=== PATIENT | female | born 1990 | race Caucasian/White ===

== ENCOUNTER 2018-07-19 06:46 | Emergency (ER) | payer MEDICAID ==
[2018-07-19 06:55] VITALS: TEMP 97.7
[2018-07-19 07:08] LABS: Glucose,Whole Blood 116 mg/dL (75-99)
[2018-07-19 07:15] VITALS: PULSE 79
[2018-07-19 07:56] LABS: Basophils % (A) 0 %; Eosinophils # (A) 0.1 k/uL (0-0.7); Eosinophils % (A) 1 %; HCT 40.3 % (34.0-46.0); Lymphocytes # (A) 0.8 k/uL (1.0-4.8); Lymphocytes % (A) 15 %; MCH 32.2 pg (25.0-35.0); MCHC 34.7 g/dL (31.0-37.0); MCV 92.9 fL (80.0-100.0); Mean Platelet Volume 7.6; Monocytes # (A) 0.4 k/uL (0-1.0); Monocytes % (A) 6 %; Neutrophils # (A) 4.1 k/uL (1.3-7.7); Neutrophils % (A) 74 %; Platelet Count 169 k/uL (150-450); RBC 4.34 m/uL (3.80-5.40); RDW 12.8 % (11.5-15.5); WBC 5.6 k/uL (3.8-10.6)
--- NOTE | 2018-07-19 08:02 | ED ---
Syncope HPI - General Chief Complaint: Syncope Stated Complaint: syncope,10 wks Time Seen by Provider: 07/19/18 07:00 Source: patient, RN notes reviewed Mode of arrival: wheelchair Limitations: no limitations - History of Present Illness Initial Comments: This is a 27-year-old female with a benign past medical history who just found out that she is unsure exactly how far along over she was at work this morning and passed all push and a laundry cart. She states her the black and she passed out briefly. She had no headache dizziness blurry vision but has been having nausea and vomiting did not eat this morning. At this time she feels good. No palpitations reported no chest pain no shortness of breath no focal weakness. MD Complaint: loss of consciousness - Related Data Home Medications Medication Instructions Recorded Confirmed Jqj-Agxp-Sthqo Acid 1 cap PO DAILY 07/19/18 07/19/18 [-U Capsule (formulary)] Allergies Allergy/AdvReac Type Severity Reaction Status Date / Time No Known Allergies Allergy Verified 07/19/18 08:02 Review of Systems ROS Statement: Those systems with pertinent positive or pertinent negative responses have been documented in the HPI. ROS Other: All systems not noted in ROS Statement are negative. Past Medical History Past Medical History: No Reported History History of Any Multi-Drug Resistant Organisms: None Reported Past Surgical History: No Surgical Hx Reported Past Psychological History: ADD/ADHD Smoking Status: Never smoker Past Alcohol Use History: None Reported Past Drug Use History: None Reported General Exam - General Exam Comments Initial Comments: This is a well-developed well-nourished awake alert oriented 3 female Limitations: no limitations General appearance: alert, in no apparent distress Head exam: Present: atraumatic, normocephalic, normal inspection Eye exam: Present: normal appearance, PERRL, EOMI. Absent: scleral icterus, conjunctival injection, periorbital swelling ENT exam: Present: normal exam, mucous membranes moist Neck exam: Present: normal inspection. Absent: tenderness, meningismus, lymphadenopathy Respiratory exam: Present: normal lung sounds bilaterally. Absent: respiratory distress, wheezes, rales, rhonchi, stridor Cardiovascular Exam: Present: regular rate, normal rhythm, normal heart sounds. Absent: systolic murmur, diastolic murmur, rubs, gallop, clicks GI/Abdominal exam: Present: soft, normal bowel sounds. Absent: distended, tenderness, guarding, rebound, rigid Extremities exam: Present: normal inspection, full ROM, normal capillary refill. Absent: tenderness, pedal edema, joint swelling, calf tenderness Back exam: Present: normal inspection Neurological exam: Present: alert, oriented X3, CN II-XII intact Psychiatric exam: Present: normal affect, normal mood Skin exam: Present: warm, dry, intact, normal color. Absent: rash Course Vital Signs 07/19/18 07/19/18 07/19/18 06:51 07:08 09:18 Temperature 97.7 F Pulse Rate 110 H 79 79 Respiratory 16 16 18 Rate Blood Pressure 119/83 128/72 109/63 O2 Sat by Pulse 99 99 99 Oximetry EKG Findings - EKG Results: EKG: interpreted by CANDIDA SAVAGE, sinus rhythm, normal axis, normal QRS, normal ST/ T, no acute changes (Normal sinus rhythm a 74. We'll 144 QRS duration 78 QT since QTC 364/404 sinus arrhythmia no acute changes) Medical Decision Making - Medical Decision Making I did reevaluate patient several occasions she is feeling improved she didn't eat breakfast this morning she may have had a hypoglycemic episode this is on documented. We did a long discussion regarding the findings including the positive beta hCG. She will keep her appointment with Dr. Salvador on Thursday which is in 2 days. I did highly recommend that she try to eat breakfast in the morning. The presentation consistent with a vasovagal episode - Lab Data Result diagrams: 07/19/18 07:35 07/19/18 07:35 Lab Results 07/19/18 07/19/18 07/19/18 Range/Units 07:07 07:35 07:35 WBC 5.6 (3.8-10.6) k/uL RBC 4.34 (3.80-5.40) m/uL Hgb 14.0 (11.4-16.0) gm/dL Hct 40.3 (34.0-46.0) % MCV 92.9 (80.0-100.0) fL MCH 32.2 (25.0-35.0) pg MCHC 34.7 (31.0-37.0) g/dL RDW 12.8 (11.5-15.5) % Plt Count 169 (150-450) k/uL Neutrophils % 74 % Lymphocytes % 15 % Monocytes % 6 % Eosinophils % 1 % Basophils % 0 % Neutrophils # 4.1 (1.3-7.7) k/uL Lymphocytes # 0.8 L (1.0-4.8) k/uL Monocytes # 0.4 (0-1.0) k/uL Eosinophils # 0.1 (0-0.7) k/uL Basophils # 0.0 (0-0.2) k/uL Sodium (137-145) mmol/L Potassium (3.5-5.1) mmol/L Chloride (98-107) mmol/L Carbon Dioxide (22-30) mmol/L Anion Gap mmol/L BUN (7-17) mg/dL Creatinine (0.52-1.04) mg/dL Est GFR (CKD-EPI)AfAm (>60 ml/min/1.73 sqM) Est GFR (CKD-EPI)NonAf (>60 ml/min/1.73 sqM) Glucose (74-99) mg/dL POC Glucose (mg/dL) 116 H (75-99) mg/dL POC Glu Reimbursement Counselor ID Christina, Liane Calcium (8.4-10.2) mg/dL Magnesium (1.6-2.3) mg/dL Total Bilirubin (0.2-1.3) mg/dL AST (14-36) U/L ALT (9-52) U/L Alkaline Phosphatase (38-126) U/L Total Creatine Kinase 33 (30-135) U/L CK-MB (CK-2) <0.2 (0.0-2.4) ng/mL CK-MB (CK-2) Rel Index Total Protein (6.3-8.2) g/dL Albumin (3.5-5.0) g/dL HCG, Quant mIU/mL 07/19/18 Range/Units 07:35 WBC (3.8-10.6) k/uL RBC (3.80-5.40) m/uL Hgb (11.4-16.0) gm/dL Hct (34.0-46.0) % MCV (80.0-100.0) fL MCH (25.0-35.0) pg MCHC (31.0-37.0) g/dL RDW (11.5-15.5) % Plt Count (150-450) k/uL Neutrophils % % Lymphocytes % % Monocytes % % Eosinophils % % Basophils % % Neutrophils # (1.3-7.7) k/uL Lymphocytes # (1.0-4.8) k/uL Monocytes # (0-1.0) k/uL Eosinophils # (0-0.7) k/uL Basophils # (0-0.2) k/uL Sodium 140 (137-145) mmol/L Potassium 3.9 (3.5-5.1) mmol/L Chloride 108 H (98-107) mmol/L Carbon Dioxide 21 L (22-30) mmol/L Anion Gap 11 mmol/L BUN 7 (7-17) mg/dL Creatinine 0.60 (0.52-1.04) mg/dL Est GFR (CKD-EPI)AfAm >90 (>60 ml/min/1.73 sqM) Est GFR (CKD-EPI)NonAf >90 (>60 ml/min/1.73 sqM) Glucose 91 (74-99) mg/dL POC Glucose (mg/dL) (75-99) mg/dL POC Glu Reimbursement Counselor ID Calcium 9.5 (8.4-10.2) mg/dL Magnesium 1.9 (1.6-2.3) mg/dL Total Bilirubin 0.5 (0.2-1.3) mg/dL AST 19 (14-36) U/L ALT 27 (9-52) U/L Alkaline Phosphatase 48 (38-126) U/L Total Creatine Kinase (30-135) U/L CK-MB (CK-2) (0.0-2.4) ng/mL CK-MB (CK-2) Rel Index Total Protein 6.8 (6.3-8.2) g/dL Albumin 3.8 (3.5-5.0) g/dL HCG, Quant >878135.0 mIU/mL Disposition Clinical Impression: Vasovagal syncope, Disposition: HOME SELF-CARE Condition: Good Instructions: (ED), Hyperemesis Gravidarum (ED), Syncope (ED) Is patient prescribed a controlled substance at d/c from ED?: No Referrals: None,Stated [Primary Care Provider] - 1-2 days
[2018-07-19] MEDS ORDERED: SODIUM CHLORIDE 0.9% 1,000 ML IV STA (08:04)
[2018-07-19 08:20] LABS: ALT 27 U/L (9-52); AST 19 U/L (14-36); Albumin 3.8 g/dL (3.5-5.0); Alkaline Phosphatase 48 U/L (38-126); Anion Gap 11 mmol/L; Blood Urea Nitrogen 7 mg/dL (7-17); Calcium 9.5 mg/dL (8.4-10.2); Carbon Dioxide 21 mmol/L (22-30); Chloride 108 mmol/L (98-107); Creatine Kinase 33 U/L (30-135); Glucose 91 mg/dL (74-99); Magnesium 1.9 mg/dL (1.6-2.3); Potassium 3.9 mmol/L (3.5-5.1); Sodium 140 mmol/L (137-145); Total Bilirubin 0.5 mg/dL (0.2-1.3); Total Protein 6.8 g/dL (6.3-8.2)
[2018-07-19 08:29] LABS: Creatine Kinase MB <0.2 ng/mL (0.0-2.4)
[2018-07-19] MEDS ORDERED: ONDANSETRON 4 MG/2 ML VIAL IVP STA (08:33)
[2018-07-19 09:20] VITALS: BP 109/63; RESP 18
[2018-07-19 09:35] LABS: HCG,Quantitative Serum >225000.0 mIU/mL
== END 2018-07-19 09:58 | disposition home or self-care (01) ==
LOC: EC 06:46
DX: O99.89 Other specified diseases and conditions complicating pregnancy, childbirth and the puerperium (principal); R55 Syncope and collapse; O21.9 Vomiting of pregnancy, unspecified; Z3A.10 10 weeks gestation of pregnancy
CPT/HCPCS: 36415; 93005; 80053; 82550; 82553; 83735; 85025; 84702; 99284; 96374; 96361; J2405

== ENCOUNTER 2018-07-25 15:41 | Observation (INO) | payer MEDICAID ==
[2018-07-25] MEDS ORDERED: SODIUM CHLORIDE 0.9% 1,000 ML IV STA (16:05)
[2018-07-25] MEDS ORDERED: METOCLOPRAMIDE 5 MG/ML 2 ML VIAL IVP STA (16:05)
--- NOTE | 2018-07-25 16:08 | ED ---
General Adult HPI - General Source: patient, RN notes reviewed Mode of arrival: ambulatory Limitations: no limitations <Berto Ayala - Last Filed: 07/25/18 16:06> <Tristin Floyd - Last Filed: 07/25/18 19:18> - General Chief complaint: Nausea/Vomiting/Diarrhea Stated complaint: 11wks dehydration Time Seen by Provider: 07/25/18 16:00 - History of Present Illness Initial comments: Patient is a G1, P0 27-year-old female who is approximately 11 weeks , presenting to the emergency room today with a chief complaint of increased nausea vomiting. Patient states that she's had nausea vomiting throughout the but the last 3 days it has been worse. She states that she did doctor or REHAB THERAPY MANAGER doctor Sara who recommended coming to the hospital for IV fluids. Patient denies any specific abdominal pain. She denies any vaginal bleeding or discharge. She denies any other complaints or symptoms. Patient denies any recent fever, chills, shortness of breath, chest pain, back pain, numbness or tingling, headaches or visual changes, or any other complaints. ( Berto Ayala) - Related Data Home Medications Medication Instructions Recorded Confirmed Qgc-Myof-Epsfm Acid 1 cap PO DAILY 07/19/18 07/25/18 [-U Capsule (formulary)] Diclegis 1 tab PO DAILY PRN 07/25/18 07/25/18 Allergies Allergy/AdvReac Type Severity Reaction Status Date / Time No Known Allergies Allergy Verified 07/25/18 16:07 Review of Systems ROS Other: All systems not noted in ROS Statement are negative. <Berto Ayala - Last Filed: 07/25/18 16:06> ROS Other: All systems not noted in ROS Statement are negative. <Tristin Floyd - Last Filed: 07/25/18 19:18> ROS Statement: Those systems with pertinent positive or pertinent negative responses have been documented in the HPI. Past Medical History Past Medical History: No Reported History Additional Past Medical History / Comment(s): hyperemesis History of Any Multi-Drug Resistant Organisms: None Reported Past Surgical History: No Surgical Hx Reported Past Psychological History: ADD/ADHD Smoking Status: Never smoker Past Alcohol Use History: None Reported Past Drug Use History: None Reported <Berto Ayala - Last Filed: 12/09/18 16:06> General Exam Limitations: no limitations <Berto Ayala - Last Filed: 07/25/18 16:06> <Tristin Floyd - Last Filed: 07/25/18 19:18> - General Exam Comments Initial Comments: General: The patient is awake and alert, in no distress, and does not appear acutely ill. Eye: Pupils are equal, round and reactive to light, extra-ocular movements are intact. No nystagmus. Bilateral subconjunctival hemorrhage. No signs of icterus. Ears, nose, mouth and throat: There are moist mucous membranes and no oral lesions. Neck: The neck is supple. Cardiovascular: There is a regular rate and rhythm. No murmur, rub or gallop is appreciated. Respiratory: Lungs are clear to auscultation, respirations are non-labored, breath sounds are equal. No wheezes, stridor, rales, or rhonchi. Gastrointestinal: Soft, non-distended, non-tender abdomen without masses or organomegaly noted. There is no rebound or guarding present. Musculoskeletal: Normal ROM, no tenderness. Neurological: A&O x 3. CN II-XII intact, There are no obvious motor or sensory deficits. Coordination appears grossly intact. Speech is normal. Skin: Skin is warm and dry and no rashes or lesions are noted. Psychiatric: Cooperative, appropriate mood & affect, normal judgment. (Berto Ayala) Vital Signs 07/25/18 15:56 Temperature 98.4 F Pulse Rate 96 Respiratory 18 Rate Blood Pressure 110/69 O2 Sat by Pulse 97 Oximetry Medical Decision Making <Berto Ayala - Last Filed: 07/25/18 16:06> - Lab Data Result diagrams: 07/25/18 16:24 07/25/18 16:24 - Radiology Data Radiology results: report reviewed (Ultrasound does show some sludge in the gallbladder. Common bile duct 1 cm.) <Tristin Floyd - Last Filed: 07/25/18 19:18> - Medical Decision Making Patient reevaluated by myself, Dr. Floyd. Patient resting comfortably in bed. Abdomen soft and nontender. Patient and family updated. Case was discussed in detail with Dr. Barillas who would like his patient admitted. Continue IV fluids. Amylase and lipase will be added. (Tristin Floyd) - Lab Data Lab Results 07/25/18 07/25/1818 Range/Units 16:24 16:24 17:05 WBC 6.3 (3.8-10.6) k/uL RBC 4.43 (3.80-5.40) m/uL Hgb 15.0 (11.4-16.0) gm/dL Hct 41.3 (34.0-46.0) % MCV 93.3 (80.0-100.0) fL MCH 34.0 (25.0-35.0) pg MCHC 36.4 (31.0-37.0) g/dL RDW 12.6 (11.5-15.5) % Plt Count 173 (150-450) k/uL Neutrophils % 74 % Lymphocytes % 17 % Monocytes % 6 % Eosinophils % 2 % Basophils % 0 % Neutrophils # 4.7 (1.3-7.7) k/uL Lymphocytes # 1.1 (1.0-4.8) k/uL Monocytes # 0.4 (0-1.0) k/uL Eosinophils # 0.1 (0-0.7) k/uL Basophils # 0.0 (0-0.2) k/uL Sodium 139 (137-145) mmol/L Potassium 3.9 (3.5-5.1) mmol/L Chloride 106 (98-107) mmol/L Carbon Dioxide 20 L (22-30) mmol/L Anion Gap 13 mmol/L BUN 9 (7-17) mg/dL Creatinine 0.50 L (0.52-1.04) mg/dL Est GFR (CKD-EPI)AfAm >90 (>60 ml/min/1.73 sqM) Est GFR (CKD-EPI)NonAf >90 (>60 ml/min/1.73 sqM) Glucose 82 (74-99) mg/dL Calcium 10.2 (8.4-10.2) mg/dL Total Bilirubin 1.9 H (0.2-1.3) mg/dL AST 215 H (14-36) U/L ALT 553 H (9-52) U/L Alkaline Phosphatase 110 (38-126) U/L Total Protein 7.7 (6.3-8.2) g/dL Albumin 4.5 (3.5-5.0) g/dL Urine Color Dark Yellow Urine Appearance Turbid H (Clear) Urine pH 6.0 (5.0-8.0) Ur Specific [place] 1.025 (1.001-1.035) Urine Protein 2+ H (Negative) Urine Glucose (UA) Negative (Negative) Urine Ketones 4+ H (Negative) Urine Blood Trace H (Negative) Urine Nitrite Negative (Negative) Urine Bilirubin 1+ H (Negative) Urine Urobilinogen 4.0 (<2.0) mg/dL Ur Leukocyte Esterase Large H (Negative) Urine RBC 24 H (0-5) /hpf Urine WBC >182 H (0-5) /hpf Urine WBC Clumps Many H (None) /hpf Ur Squamous Epith Cells 26 H (0-4) /hpf Urine Mucus Few H (None) /hpf Disposition <Berto Ayala - Last Filed: 07/25/18 16:06> Is patient prescribed a controlled substance at d/c from ED?: No Decision Time: 19:18 <Tristin Floyd - Last Filed: 07/25/18 19:18> Clinical Impression: Gallbladder sludge, Hyperemesis gravidarum Disposition: ADMITTED IP TO THIS HOSP Referrals: Neil Salvador MD [STAFF PHYSICIAN] - 1-2 days
[2018-07-25 16:33] LABS: Basophils % (A) 0 %; Eosinophils # (A) 0.1 k/uL (0-0.7); Eosinophils % (A) 2 %; HCT 41.3 % (34.0-46.0); Lymphocytes # (A) 1.1 k/uL (1.0-4.8); Lymphocytes % (A) 17 %; MCHC 36.4 g/dL (31.0-37.0); MCV 93.3 fL (80.0-100.0); Mean Platelet Volume 7.6; Monocytes # (A) 0.4 k/uL (0-1.0); Monocytes % (A) 6 %; Neutrophils # (A) 4.7 k/uL (1.3-7.7); Neutrophils % (A) 74 %; Platelet Count 173 k/uL (150-450); RBC 4.43 m/uL (3.80-5.40); RDW 12.6 % (11.5-15.5); WBC 6.3 k/uL (3.8-10.6)
[2018-07-25 16:42] LABS: ALT 553 U/L (9-52); AST 215 U/L (14-36); Albumin 4.5 g/dL (3.5-5.0); Alkaline Phosphatase 110 U/L (38-126); Anion Gap 13 mmol/L; Blood Urea Nitrogen 9 mg/dL (7-17); Calcium 10.2 mg/dL (8.4-10.2); Carbon Dioxide 20 mmol/L (22-30); Chloride 106 mmol/L (98-107); Glucose 82 mg/dL (74-99); Potassium 3.9 mmol/L (3.5-5.1); Sodium 139 mmol/L (137-145); Total Bilirubin 1.9 mg/dL (0.2-1.3); Total Protein 7.7 g/dL (6.3-8.2)
[2018-07-25 17:29] LABS: Appearance,Urine Turbid (Clear); Bilirubin,Urine 1+ (Negative); Blood,Urine Trace (Negative); Color,Urine Dark Yellow; Glucose,Urine (UA) Negative (Negative); Ketones,Urine 4+ (Negative); Leukocyte Esterase,Urine Large (Negative); Mucus,Urine Few /hpf; Nitrite,Urine Negative (Negative); Protein,Urine 2+ (Negative); RBC,Urine 24 /hpf (0-5); Specific Gravity,Urine 1.025 (1.001-1.035); Squamous Epithelial Cell,Urine 26 /hpf (0-4)
--- NOTE | 2018-07-25 18:16 | US ---
EXAMINATION TYPE: US abdomen limited DATE OF EXAM: 07/25/2018 COMPARISON: NONE CLINICAL HISTORY: Pain. EXAM MEASUREMENTS: Liver Length: 14.8 cm Gallbladder Wall: 0.2 cm CBD: 1.0 cm Right Kidney: 10.1 x 3.8 x 4.3 cm Pancreas: wnl Liver: wnl Gallbladder: sludge filled Evidence for sonographic Yo's sign: no CBD: dilated Right Kidney: wnl IMPRESSION: There is echogenic bile. No dilation seen of the intrahepatic bile ducts. No gallstones s een.
[2018-07-25] MEDS ORDERED: SODIUM CHLORIDE 0.9% 500 ML 500 ML IV STA (19:04)
[2018-07-25] MEDS ORDERED: NALOXONE 0.4 MG/ML 1 ML VIAL IV PRN (19:18)
[2018-07-25] MEDS ORDERED: ONDANSETRON 4 MG/2 ML VIAL IVP PRN (19:18)
[2018-07-25] MEDS ORDERED: AMPICILLIN-SULBACTAM 3 GM in SODIUM CHLORIDE 0.9% 100 ML IVPB STA (19:29)
[2018-07-25 19:39] LABS: Amylase 66 U/L (30-110); Lipase 143 U/L (23-300)
--- NOTE | 2018-07-25 20:02 | P.HPOB ---
History of Present Illness H&P Date: 07/25/18 Chief Complaint: Intrauterine at 11 weeks: Hyperemesis gravidarum Shirley is a 27-year-old at 11 weeks gestation who arrives emergency room complaining of hyperemesis. Her symptoms have been ongoing for last week and she was seen earlier in the emergency room for same symptoms. At that time they did with the IV hydration and antiemetics get her feeling better, however for last 3 days her symptoms progressively worsened and she is on the point where she is very dehydrated and cannot keep anything down. She relates that she is been throwing up up to 20 times a day. At this time her vital signs are stable and she is afebrile. She relates the last time she throat was about 5 or 6 hours ago. In the emergency room she has received his dose of Zofran and antibiotic were initiated for possible cystitis questions early pyelonephritis with large number of white blood cells and clumps. Also noted on ultrasound is presence of significant sludge in her gallbladder in a surgical consult has been requested. She has been started on a clear liquid diet which hopefully we will be able to advance. Should she stay in the hospital for continued to have symptoms for more than a day or 2 a nutritional consult will likely be required. Abnormal laboratory studies did include elevation in her AST and MALT as well as told total bilirubin. We will check thyroid and make sure that that is not part of the process for her hyperemesis. Is also quite likely that her acute cystitis is complicating her nausea as well. She was already started on IV antibiotics in the emergency room. A culture is pending. Past Medical History Past Medical History: No Reported History Additional Past Medical History / Comment(s): hyperemesis History of Any Multi-Drug Resistant Organisms: None Reported Past Surgical History: No Surgical Hx Reported Past Psychological History: ADD/ADHD Smoking Status: Never smoker Past Alcohol Use History: None Reported Past Drug Use History: None Reported Medications and Allergies Home Medications Medication Instructions Recorded Confirmed Type Dwv-Vbqe-Evrab Acid 1 cap PO DAILY 07/19/18 07/25/18 History [-U Capsule (formulary)] Diclegis 1 tab PO DAILY PRN 07/25/18 07/25/18 History Allergies Allergy/AdvReac Type Severity Reaction Status Date / Time No Known Allergies Allergy Verified 07/25/18 16:07 Exam Osteopathic Statement: *. No significant issues noted on an osteopathic structural exam other than those noted in the History and Physical/Consult. Vital Signs Temp Pulse Resp BP Pulse Ox 07/25/18 19:30 74 16 114/65 100 07/25/18 15:56 98.4 F 96 18 110/69 97 Intake and Output 07/25/18 07/25/18 07/25/18 06:59 14:59 22:59 Other: Weight 63.503 kg - OBG Physical Exam Abdomen: bowel sounds normal, no diffuse tenderness, no bruit present, no guarding noted, no hepatomegaly, no splenomegaly, no mass Results Result Diagrams: 07/25/18 16:24 07/25/18 16:24 Abnormal Lab Results - Last 24 Hours (Table) 07/25/18 07/25/18 Range/Units 16:24 17:05 Carbon Dioxide 20 L (22-30) mmol/L Creatinine 0.50 L (0.52-1.04) mg/dL Total Bilirubin 1.9 H (0.2-1.3) mg/dL AST 215 H (14-36) U/L ALT 553 H (9-52) U/L Urine Appearance Turbid H (Clear) Urine Protein 2+ H (Negative) Urine Ketones 4+ H (Negative) Urine Blood Trace H (Negative) Urine Bilirubin 1+ H (Negative) Ur Leukocyte Esterase Large H (Negative) Urine RBC 24 H (0-5) /hpf Urine WBC >182 H (0-5) /hpf Urine WBC Clumps Many H (None) /hpf Ur Squamous Epith Cells 26 H (0-4) /hpf Urine Mucus Few H (None) /hpf
[2018-07-25] MEDS: SODIUM CHLORIDE 0.9% 1,000 ML IV SCH (20:06)
[2018-07-25 20:28] VITALS: BMI 20.6
[2018-07-25] MEDS: FAMOTIDINE 20 MG TAB PO SCH (22:09)
[2018-07-26] MEDS: AMPICILLIN-SULBACTAM 1.5 GM in SODIUM CHLORIDE 0.9% 50 ML IVPB SCH ×5 (00:33→23:59)
[2018-07-26] MEDS: SODIUM CHLORIDE 0.9% 1,000 ML IV SCH ×3 (06:10→19:03)
--- NOTE | 2018-07-26 06:44 | P.PN ---
Progress Note - Text Progress Note Date: 07/26/18 This is hospital day #2. Patient's felt better overnight. She's had no significant emesis and has had some urine output. See previous notes is to her elevated liver tests and "sludge" in the gallbladder. Plan today is to continue IV hydration, nothing by mouth for the moment, general surgical consultation, and repeat labs. Patient has requested to see Dr. Castaneda for general surgical consultation. I did discuss with the patient and her elevated liver tests could be secondary to her prolonged dehydration versus overt gallbladder disease however there is no evidence of cholecystitis at this time or pancreatitis. Hopefully patient will continue to improve with IV hydration, she is not in a position to be discharged home today and will require continued inpatient hospitalization
[2018-07-26 07:45] LABS: Basophils % (A) 0 %; Eosinophils # (A) 0.1 k/uL (0-0.7); Eosinophils % (A) 1 %; HCT 37.3 % (34.0-46.0); HGB 12.8 gm/dL (11.4-16.0); Lymphocytes # (A) 0.9 k/uL (1.0-4.8); Lymphocytes % (A) 17 %; MCH 32.4 pg (25.0-35.0); MCHC 34.4 g/dL (31.0-37.0); MCV 94.3 fL (80.0-100.0); Monocytes # (A) 0.2 k/uL (0-1.0); Monocytes % (A) 5 %; Neutrophils # (A) 3.9 k/uL (1.3-7.7); Neutrophils % (A) 75 %; Platelet Count 159 k/uL (150-450); RBC 3.95 m/uL (3.80-5.40); RDW 12.5 % (11.5-15.5); WBC 5.2 k/uL (3.8-10.6)
[2018-07-26 07:55] LABS: ALT 349 U/L (9-52); AST 92 U/L (14-36); Albumin 3.4 g/dL (3.5-5.0); Alkaline Phosphatase 87 U/L (38-126); Anion Gap 10 mmol/L; Blood Urea Nitrogen 6 mg/dL (7-17); Calcium 8.8 mg/dL (8.4-10.2); Carbon Dioxide 13 mmol/L (22-30); Chloride 112 mmol/L (98-107); Glucose 63 mg/dL (74-99); Potassium 4.3 mmol/L (3.5-5.1); Sodium 135 mmol/L (137-145); Total Bilirubin 1.2 mg/dL (0.2-1.3); Total Protein 6.1 g/dL (6.3-8.2)
--- NOTE | 2018-07-26 09:58 | P.GSCN ---
<Allyssa Cruz - Last Filed: 07/26/18 09:45> History of Present Illness Consult date: 07/26/18 Reason for Consult: Gallbladder sludge per ultrasound of the gallbladder History of present illness: 27 year old female being seen for a surgical eval at the request of the attending with an ultrasound of the abdomen which showed gallbladder sludge common bile duct not dilated no gallstones seen with elevated liver enzymes patient is 11 weeks did initially present to the emergency room with persistent nausea vomiting and inability to keep fluids down. Patient states last Thursday she felt dehydrated came into the emergency room for IV fluid. Patient is denying any abdominal pain when questioning. Denies any recent fever chills or shortness of breath. Patient states that throughout the has been nauseated the last 3 days have become more symptomatic. Denies any diarrhea or loose stools currently patient is being seen at the bedside the time of the exam patient states she is not having any abdominal pain and has been able to keep clear liquids down Abhinav is helping mother at bedside reports a history of hyperemesis with her and 3 weeks mother did have cholecystectomy done patient has no significant surgical or past medical history Review of Systems essentially unremarkable except as mentioned Past Medical History Past Medical History: No Reported History Additional Past Medical History / Comment(s): hyperemesis History of Any Multi-Drug Resistant Organisms: None Reported Past Surgical History: No Surgical Hx Reported Past Psychological History: ADD/ADHD Additional Psychological History / Comment(s): in 3rd grade, resolved. Smoking Status: Never smoker Past Alcohol Use History: None Reported Past Drug Use History: None Reported - Past Family History Mother Family Medical History: No Reported History Additional Family Medical History / Comment(s): hyperemesis Father Family Medical History: No Reported History Medications and Allergies Home Medications Medication Instructions Recorded Confirmed Type [id number] Acid 1 cap PO DAILY 07/19/18 07/25/18 History [-U Capsule (formulary)] Diclegis 1 tab PO DAILY PRN 07/25/18 07/25/18 History Allergies Allergy/AdvReac Type Severity Reaction Status Date / Time No Known Allergies Allergy Verified 07/25/18 16:07 Surgical - Exam Vital Signs Temp Pulse Resp BP Pulse Ox 98.4 F 96 18 110/69 97 07/25/18 15:56 07/25/18 15:56 07/25/18 15:56 07/25/18 15:56 07/25/18 15:56 GENERAL APPEARANCE: patient is alert, oriented, in no acute distress resting in bed reports a nausea sensation has improved able to take clear liquids. VITAL SIGNS: Reviewed HEENT: Head is normocephalic and atraumatic. Pupils are equal and reactive. The nares are patent. Oropharynx is clear without lesions. NECK: Supple without lymphadenopathy. Traches midline. HEART: S1, S2. Regular rate and rhythm. No murmur noted LUNGS: No crackles or wheezes are heard. Adequate air movement bilaterally ABDOMEN: Soft, nontender, nondistended with good bowel sounds. No peritoneal signs. No palpable organomegaly or masses. No frequent stooling denying any burning on urination frequency urgency reports able to tolerate clear liquids this morning denying any abdominal pain EXTREMITIES: Normal skin color and turgor. No cyanosis, rash, ulceration, clubbing or edema. Radial pedal pulses are 2/4 bilaterally. NEUROLOGICAL: No focal deficits. Strength and sensation are grossly intact. Results - Labs 07/26/18 07:31 07/26/18 07:31 Abnormal Lab Results - Last 24 Hours (Table) 07/25/18 07/25/18 07/26/18 Range/Units 16:24 17:05 07:31 Lymphocytes # 0.9 L (1.0-4.8) k/uL Sodium (137-145) mmol/L Chloride (98-107) mmol/L Carbon Dioxide 20 L (22-30) mmol/L BUN (7-17) mg/dL Creatinine 0.50 L (0.52-1.04) mg/dL Glucose (74-99) mg/dL Total Bilirubin 1.9 H (0.2-1.3) mg/dL AST 215 H (14-36) U/L ALT 553 H (9-52) U/L Total Protein (6.3-8.2) g/dL Albumin (3.5-5.0) g/dL TSH (0.465-4.680) mIU/L Free T4 (0.78-2.19) ng/dL Urine Appearance Turbid H (Clear) Urine Protein 2+ H (Negative) Urine Ketones 4+ H (Negative) Urine Blood Trace H (Negative) Urine Bilirubin 1+ H (Negative) Ur Leukocyte Esterase Large H (Negative) Urine RBC 24 H (0-5) /hpf Urine WBC >182 H (0-5) /hpf Urine WBC Clumps Many H (None) /hpf Ur Squamous Epith Cells 26 H (0-4) /hpf Urine Mucus Few H (None) /hpf 07/26/18 Range/Units 07:31 Lymphocytes # (1.0-4.8) k/uL Sodium 135 L (137-145) mmol/L Chloride 112 H (98-107) mmol/L Carbon Dioxide 13 L (22-30) mmol/L BUN 6 L (7-17) mg/dL Creatinine 0.49 L (0.52-1.04) mg/dL Glucose 63 L (74-99) mg/dL Total Bilirubin (0.2-1.3) mg/dL AST 92 H (14-36) U/L ALT 349 H (9-52) U/L Total Protein 6.1 L (6.3-8.2) g/dL Albumin 3.4 L (3.5-5.0) g/dL TSH <0.015 L (0.465-4.680) mIU/L Free T4 2.30 H (0.78-2.19) ng/dL Urine Appearance (Clear) Urine Protein (Negative) Urine Ketones (Negative) Urine Blood (Negative) Urine Bilirubin (Negative) Ur Leukocyte Esterase (Negative) Urine RBC (0-5) /hpf Urine WBC (0-5) /hpf Urine WBC Clumps (None) /hpf Ur Squamous Epith Cells (0-4) /hpf Urine Mucus (None) /hpf Microbiology - Last 24 Hours (Table) 07/25/18 17:05 Urine Culture - Preliminary Urine,Voided Diabetes panel 07/25/18 07/26/18 Range/Units 16:24 07:31 Sodium 139 135 L (137-145) mmol/L Potassium 3.9 4.3 (3.5-5.1) mmol/L Chloride 106 112 H (98-107) mmol/L Carbon Dioxide 20 L 13 L (22-30) mmol/L BUN 9 6 L (7-17) mg/dL Creatinine 0.50 L 0.49 L (0.52-1.04) mg/dL Glucose 82 63 L (74-99) mg/dL Calcium 10.2 8.8 (8.4-10.2) mg/dL AST 215 H 92 H (14-36) U/L ALT 553 H 349 H (9-52) U/L Alkaline Phosphatase 110 87 (38-126) U/L Total Protein 7.7 6.1 L (6.3-8.2) g/dL Albumin 4.5 3.4 L (3.5-5.0) g/dL Thyroid panel 07/26/18 Range/Units 07:31 TSH <0.015 L (0.465-4.680) mIU/L Calcium panel 07/25/18 07/26/18 Range/Units 16:24 07:31 Calcium 10.2 8.8 (8.4-10.2) mg/dL Albumin 4.5 3.4 L (3.5-5.0) g/dL Pituitary panel 07/25/18 07/26/18 Range/Units 16:24 07:31 Sodium 139 135 L (137-145) mmol/L Potassium 3.9 4.3 (3.5-5.1) mmol/L Chloride 106 112 H (98-107) mmol/L Carbon Dioxide 20 L 13 L (22-30) mmol/L BUN 9 6 L (7-17) mg/dL Creatinine 0.50 L 0.49 L (0.52-1.04) mg/dL Glucose 82 63 L (74-99) mg/dL Calcium 10.2 8.8 (8.4-10.2) mg/dL TSH <0.015 L (0.465-4.680) mIU/L Adrenal panel 07/25/18 07/26/18 Range/Units 16:24 07:31 Sodium 139 135 L (137-145) mmol/L Potassium 3.9 4.3 (3.5-5.1) mmol/L Chloride 106 112 H (98-107) mmol/L Carbon Dioxide 20 L 13 L (22-30) mmol/L BUN 9 6 L (7-17) mg/dL Creatinine 0.50 L 0.49 L (0.52-1.04) mg/dL Glucose 82 63 L (74-99) mg/dL Calcium 10.2 8.8 (8.4-10.2) mg/dL Total Bilirubin 1.9 H 1.2 (0.2-1.3) mg/dL AST 215 H 92 H (14-36) U/L ALT 553 H 349 H (9-52) U/L Alkaline Phosphatase 110 87 (38-126) U/L Total Protein 7.7 6.1 L (6.3-8.2) g/dL Albumin 4.5 3.4 L (3.5-5.0) g/dL Assessment and Plan Assessment: Impression Present on admission intractable nausea vomiting hyperemesis 11 week Present on admission elevated liver enzymes suspect due to hyperemesis dehydration Ultrasound abdomen showed sludge in the gallbladder no evidence of cholecystitis or pancreatitis Presented admission clinical dehydration due to poor oral intake due to hyperemesis Plan Continue CIRCULATION REPRESENTATIVE's recommendations IV hydration Monitor liver function studies Clear liquid diet IV Unasyn as ordered No evidence of an acute surgical abdomen at this time We'll follow with you with further surgical recommendations pending clinical course Surgical consultation note dictated for Dr. monterroso The above impression and plan of care have been discussed and directed by signing physician. Allyssa Cruz nurse practitioner acting as scribe for signing physician. <Berto Monterroso - Last Filed: 07/26/18 16:22> Surgical - Exam Vital Signs Temp Pulse Resp BP Pulse Ox 98.4 F 96 18 110/69 97 07/25/18 15:56 07/25/18 15:56 07/25/18 15:56 07/25/18 15:56 07/25/18 15:56 Results - Labs 07/26/18 07:31 07/26/18 07:31 Abnormal Lab Results - Last 24 Hours (Table) 07/25/18 07/25/18 07/26/18 Range/Units 16:24 17:05 07:31 Lymphocytes # 0.9 L (1.0-4.8) k/uL Sodium (137-145) mmol/L Chloride (98-107) mmol/L Carbon Dioxide 20 L (22-30) mmol/L BUN (7-17) mg/dL Creatinine 0.50 L (0.52-1.04) mg/dL Glucose (74-99) mg/dL Total Bilirubin 1.9 H (0.2-1.3) mg/dL AST 215 H (14-36) U/L ALT 553 H (9-52) U/L Total Protein (6.3-8.2) g/dL Albumin (3.5-5.0) g/dL TSH (0.465-4.680) mIU/L Free T4 (0.78-2.19) ng/dL Urine Appearance Turbid H (Clear) Urine Protein 2+ H (Negative) Urine Ketones 4+ H (Negative) Urine Blood Trace H (Negative) Urine Bilirubin 1+ H (Negative) Ur Leukocyte Esterase Large H (Negative) Urine RBC 24 H (0-5) /hpf Urine WBC >182 H (0-5) /hpf Urine WBC Clumps Many H (None) /hpf Ur Squamous Epith Cells 26 H (0-4) /hpf Urine Mucus Few H (None) /hpf 07/26/18 Range/Units 07:31 Lymphocytes # (1.0-4.8) k/uL Sodium 135 L (137-145) mmol/L Chloride 112 H (98-107) mmol/L Carbon Dioxide 13 L (22-30) mmol/L BUN 6 L (7-17) mg/dL Creatinine 0.49 L (0.52-1.04) mg/dL Glucose 63 L (74-99) mg/dL Total Bilirubin (0.2-1.3) mg/dL AST 92 H (14-36) U/L ALT 349 H (9-52) U/L Total Protein 6.1 L (6.3-8.2) g/dL Albumin 3.4 L (3.5-5.0) g/dL TSH <0.015 L (0.465-4.680) mIU/L Free T4 2.30 H (0.78-2.19) ng/dL Urine Appearance (Clear) Urine Protein (Negative) Urine Ketones (Negative) Urine Blood (Negative) Urine Bilirubin (Negative) Ur Leukocyte Esterase (Negative) Urine RBC (0-5) /hpf Urine WBC (0-5) /hpf Urine WBC Clumps (None) /hpf Ur Squamous Epith Cells (0-4) /hpf Urine Mucus (None) /hpf Microbiology - Last 24 Hours (Table) 07/25/18 17:05 Urine Culture - Preliminary Urine,Voided Diabetes panel 07/25/18 07/26/18 Range/Units 16:24 07:31 Sodium 139 135 L (137-145) mmol/L Potassium 3.9 4.3 (3.5-5.1) mmol/L Chloride 106 112 H (98-107) mmol/L Carbon Dioxide 20 L 13 L (22-30) mmol/L BUN 9 6 L (7-17) mg/dL Creatinine 0.50 L 0.49 L (0.52-1.04) mg/dL Glucose 82 63 L (74-99) mg/dL Calcium 10.2 8.8 (8.4-10.2) mg/dL AST 215 H 92 H (14-36) U/L ALT 553 H 349 H (9-52) U/L Alkaline Phosphatase 110 87 (38-126) U/L Total Protein 7.7 6.1 L (6.3-8.2) g/dL Albumin 4.5 3.4 L (3.5-5.0) g/dL Thyroid panel 07/26/18 Range/Units 07:31 TSH <0.015 L (0.465-4.680) mIU/L Calcium panel 07/25/18 07/26/18 Range/Units 16:24 07:31 Calcium 10.2 8.8 (8.4-10.2) mg/dL Albumin 4.5 3.4 L (3.5-5.0) g/dL Pituitary panel 07/25/18 07/26/18 Range/Units 16:24 07:31 Sodium 139 135 L (137-145) mmol/L Potassium 3.9 4.3 (3.5-5.1) mmol/L Chloride 106 112 H (98-107) mmol/L Carbon Dioxide 20 L 13 L (22-30) mmol/L BUN 9 6 L (7-17) mg/dL Creatinine 0.50 L 0.49 L (0.52-1.04) mg/dL Glucose 82 63 L (74-99) mg/dL Calcium 10.2 8.8 (8.4-10.2) mg/dL TSH <0.015 L (0.465-4.680) mIU/L Adrenal panel 07/25/18 07/26/18 Range/Units 16:24 07:31 Sodium 139 135 L (137-145) mmol/L Potassium 3.9 4.3 (3.5-5.1) mmol/L Chloride 106 112 H (98-107) mmol/L Carbon Dioxide 20 L 13 L (22-30) mmol/L BUN 9 6 L (7-17) mg/dL Creatinine 0.50 L 0.49 L (0.52-1.04) mg/dL Glucose 82 63 L (74-99) mg/dL Calcium 10.2 8.8 (8.4-10.2) mg/dL Total Bilirubin 1.9 H 1.2 (0.2-1.3) mg/dL AST 215 H 92 H (14-36) U/L ALT 553 H 349 H (9-52) U/L Alkaline Phosphatase 110 87 (38-126) U/L Total Protein 7.7 6.1 L (6.3-8.2) g/dL Albumin 4.5 3.4 L (3.5-5.0) g/dL Assessment and Plan Assessment: As above. Patient with admission for intractable vomiting. Denies abdominal pain. Ultrasound performed shows sludge. The patient does have elevated liver enzymes. Possibility for choledocholithiasis discussed with the patient and her mother. At this time the patient's labs are trending downward. Her symptoms have improved as well. Will repeat labs tomorrow. Tentatively would plan cholecystectomy post delivery. Of note the patient's mother had severe hyperemesis during her pregnancies as well. We'll follow closely with you.
[2018-07-26] MEDS: FAMOTIDINE 20 MG TAB PO SCH ×2 (10:29→20:53)
--- NOTE | 2018-07-26 14:07 | P.CONS ---
History of Present Illness - Reason for Consult Consult date: 07/26/18 Abnormal thyroid labs Requesting physician: Donald Ruiz - Chief Complaint Nausea and vomiting - History of Present Illness 27-year-old female with no past medical history presents to the ED for intractable nausea and vomiting. Patient reports multiple episodes of nausea and vomiting for the past 2-3 weeks. 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 In the ED, patient was noted to be afebrile with no leukocytosis. CBC was unremarkable. CMP showed a bicarbonate level of 20, creatinine of 0.50, total bilirubin of 1.9, AST of 215, ALT of 553, TSH of less than 0.015, free T4 of 2.30. She is and is admitted under [employer]CHITECT for hyperemesis gravidarum. Medicine is consulted for abnormal thyroid labs. Patient denies any immediate family history of thyroid disorders. She denies any palpitations. She denies any hyper defecation. She denies any muscular weakness or tremors. She denies any swelling of her neck or eyes. She does complain of red eyes, associated with multiple episodes of vomiting. Patient also denies any abdominal pain with her nausea and vomiting. She has no changes in the color or caliber of her stool or urine. She denies any headache , lower extremity edema, fever, cough, chest pain, dizziness or shortness of breath. Patient reports decreased appetite due to hyperemesis gravidarum. Review of Systems All systems: negative Past Medical History Past Medical History: No Reported History Additional Past Medical History / Comment(s): hyperemesis History of Any Multi-Drug Resistant Organisms: None Reported Past Surgical History: No Surgical Hx Reported Past Psychological History: ADD/ADHD Additional Psychological History / Comment(s): in 3rd grade, resolved. Smoking Status: Never smoker Past Alcohol Use History: None Reported Past Drug Use History: None Reported - Past Family History Mother Family Medical History: No Reported History Additional Family Medical History / Comment(s): hyperemesis Father Family Medical History: No Reported History Medications and Allergies Home Medications Medication Instructions Recorded Confirmed Type [id number] Acid 1 cap PO DAILY 07/19/18 07/25/18 History [-U Capsule (formulary)] Diclegis 1 tab PO DAILY PRN 07/25/18 07/25/18 History Allergies Allergy/AdvReac Type Severity Reaction Status Date / Time No Known Allergies Allergy Verified 07/25/18 16:07 Physical Exam Vitals: Vital Signs Temp Pulse Pulse Pulse Resp BP BP 07/26/18 12:17 97.5 F L 67 16 101/57 07/26/18 07:41 82 07/26/18 07:32 98.1 F 82 18 108/61 07/26/18 00:00 98.3 F 88 18 117/65 07/25/18 20:05 97.3 F L 73 18 119/55 07/25/18 19:30 74 16 114/65 07/25/18 15:56 98.4 F 96 18 110/69 Pulse Ox 07/26/18 12:17 98 07/26/18 07:41 07/26/18 07:32 98 07/26/18 00:00 98 07/25/18 20:05 100 07/25/18 19:30 100 07/25/18 15:56 97 Intake and Output 07/25/18 07/26/18 07/26/18 22:59 06:59 14:59 Intake Total 120 Output Total 150 600 Balance -30 -600 Intake: Oral 120 Output: Urine 150 600 Other: # Voids 1 Weight 61.6 kg General: [non toxic], [no distress], [appears at stated age] Derm: [warm], [dry] Head: [atraumatic], [normocephalic], [symmetric] Eyes: [EOMI], [no lid lag], [conjunctival hemorrhage], [no ophthalmoplegia] Mouth: [no lip lesion], [mucus membranes moist] Cardiovascular: [S1S2 reg], [no murmur], [positive DP pulse bilateral] Lungs: [CTA bilateral], [no rhonchi, no rales] , [no accessory muscle use] Abdominal: [soft], [ nontender to palpation], [no guarding], [no appreciable organomegaly] Ext: [no gross muscle atrophy], [no edema], [no contractures], [no tremors] Neuro: [no focal neuro deficits] Psych: [Alert], [oriented], [appropriate affect] Results CBC & Chem 7: 07/26/18 07:31 07/26/18 07:31 Labs: Abnormal Lab Results - Last 24 Hours (Table) 07/25/18 07/25/18 07/26/18 Range/Units 16:24 17:05 07:31 Lymphocytes # 0.9 L (1.0-4.8) k/uL Sodium (137-145) mmol/L Chloride (98-107) mmol/L Carbon Dioxide 20 L (22-30) mmol/L BUN (7-17) mg/dL Creatinine 0.50 L (0.52-1.04) mg/dL Glucose (74-99) mg/dL Total Bilirubin 1.9 H (0.2-1.3) mg/dL AST 215 H (14-36) U/L ALT 553 H (9-52) U/L Total Protein (6.3-8.2) g/dL Albumin (3.5-5.0) g/dL TSH (0.465-4.680) mIU/L Free T4 (0.78-2.19) ng/dL Urine Appearance Turbid H (Clear) Urine Protein 2+ H (Negative) Urine Ketones 4+ H (Negative) Urine Blood Trace H (Negative) Urine Bilirubin 1+ H (Negative) Ur Leukocyte Esterase Large H (Negative) Urine RBC 24 H (0-5) /hpf Urine WBC >182 H (0-5) /hpf Urine WBC Clumps Many H (None) /hpf Ur Squamous Epith Cells 26 H (0-4) /hpf Urine Mucus Few H (None) /hpf 07/26/18 Range/Units 07:31 Lymphocytes # (1.0-4.8) k/uL Sodium 135 L (137-145) mmol/L Chloride 112 H (98-107) mmol/L Carbon Dioxide 13 L (22-30) mmol/L BUN 6 L (7-17) mg/dL Creatinine 0.49 L (0.52-1.04) mg/dL Glucose 63 L (74-99) mg/dL Total Bilirubin (0.2-1.3) mg/dL AST 92 H (14-36) U/L ALT 349 H (9-52) U/L Total Protein 6.1 L (6.3-8.2) g/dL Albumin 3.4 L (3.5-5.0) g/dL TSH <0.015 L (0.465-4.680) mIU/L Free T4 2.30 H (0.78-2.19) ng/dL Urine Appearance (Clear) Urine Protein (Negative) Urine Ketones (Negative) Urine Blood (Negative) Urine Bilirubin (Negative) Ur Leukocyte Esterase (Negative) Urine RBC (0-5) /hpf Urine WBC (0-5) /hpf Urine WBC Clumps (None) /hpf Ur Squamous Epith Cells (0-4) /hpf Urine Mucus (None) /hpf Microbiology - Last 24 Hours (Table) 07/25/18 17:05 Urine Culture - Preliminary Urine,Voided Assessment and Plan Assessment: Assessment and Plan 1. Hyperthyroidism: TSH < 0.015, FT4 2.30. Patient does not display any symptoms of hyperthyroidism (tachycardia, goiter, ophthalmoplegia, hyperdefecation, muscle weakness or tremors). Her elevated TSH and free T4 is likely secondary to her elevated beta hCG, which is also capable of stimulating thyroid hormone. As she is not symptomatic, I would not treat at this point. Her thyroid function test is anticipated to normalize as beta hCG drops. She should follow-up with her primary care provider, and possibly endocrinology in the outpatient setting for redraw of TSH and free T4 within 2 weeks. 2. Hyperemesis gravidarium: Likely cause of chronic nausea and vomiting. UA shows signs of dehydration (ketonuria). Zofran 4 mg IV TID PRN for N/V. Continue NS at 120 cc/h. Clear liquid diet and advance. 3. Transaminitis: T. Bili 1.9 AST 215 ALT 553 ALK-P is within normal limits. Abdominal US shows bile sludge with no gallstones. General Sx consulted, likely related to dehydration rather than obstruction. Started on Ampicillin-Sulbactam 1.5g IV QID for management of cholecystitis. FU General Sx 4. : at 11 weeks. Management as per OBGYN. 5. DVT/GI Prophylaxis: Early mobilization, low risk for DVT. We will continue to follow. Please call with additional questions. Thank you for the consult.
--- NOTE | 2018-07-26 18:02 | P.PN ---
Progress Note - Text Progress Note Date: 07/26/18 Patient is feeling much better this evening. Taking liquids and some dry foods. Patient was seen by Dr. Castaneda and he will continue to follow and most likely will need a cholecystectomy in the future possibly between pregnancies. But not during this . There is no evidence of pancreatitis or cholecystitis at this time. Patient was also seen by medicine and thyroid abnormalities were thought to be secondary to her hyperemesis and again I will repeat these in about 4-6 weeks. Plan this evening is to continue IV fluids, check labs in the morning, advance diet tomorrow morning and will then most likely discharge home if she continues to do this well.
[2018-07-27] MEDS: SODIUM CHLORIDE 0.9% 1,000 ML IV SCH ×2 (03:37→14:23)
[2018-07-27] MEDS: AMPICILLIN-SULBACTAM 1.5 GM in SODIUM CHLORIDE 0.9% 50 ML IVPB SCH (05:34)
[2018-07-27 05:50] LABS: Basophils % (A) 0 %; Eosinophils # (A) 0.1 k/uL (0-0.7); Eosinophils % (A) 3 %; HCT 35.7 % (34.0-46.0); HGB 12.4 gm/dL (11.4-16.0); Lymphocytes # (A) 1.3 k/uL (1.0-4.8); Lymphocytes % (A) 31 %; MCH 32.5 pg (25.0-35.0); MCHC 34.7 g/dL (31.0-37.0); MCV 93.5 fL (80.0-100.0); Mean Platelet Volume 7.7; Monocytes # (A) 0.2 k/uL (0-1.0); Monocytes % (A) 6 %; Neutrophils # (A) 2.4 k/uL (1.3-7.7); Neutrophils % (A) 57 %; Platelet Count 154 k/uL (150-450); RBC 3.82 m/uL (3.80-5.40); RDW 12.7 % (11.5-15.5); WBC 4.1 k/uL (3.8-10.6)
[2018-07-27 06:06] LABS: ALT 275 U/L (9-52); AST 88 U/L (14-36); Alkaline Phosphatase 77 U/L (38-126); Anion Gap 4 mmol/L; Bilirubin, Delta 0.3 mg/dL (0.0-0.2); Bilirubin,Unconjugated 0.4 mg/dL (0.0-1.1); Blood Urea Nitrogen 2 mg/dL (7-17); Calcium 8.8 mg/dL (8.4-10.2); Carbon Dioxide 21 mmol/L (22-30); Chloride 113 mmol/L (98-107); Glucose 85 mg/dL (74-99); Potassium 4.2 mmol/L (3.5-5.1); Sodium 138 mmol/L (137-145); Total Bilirubin 0.7 mg/dL (0.2-1.3); Total Protein 5.5 g/dL (6.3-8.2)
--- NOTE | 2018-07-27 06:17 | P.PN ---
Progress Note - Text Progress Note Date: 07/27/18 Hospital day #3. Patient is feeling much better today and didn't tolerate toast and crackers last evening. Patient be advanced to a regular diet this morning. Liver tests have continued to come down. At this point I'm going to see if the patient tolerates breakfast and if she does we'll plan on discharge home later today. She'll try to continue oral Zofran at home however repeat liver function tests as an outpatient.
[2018-07-27] MEDS: FAMOTIDINE 20 MG TAB PO SCH (08:34)
[2018-07-27 09:19] VITALS: TEMP 97.7
--- NOTE | 2018-07-27 12:32 | P.PN ---
Subjective Progress Note Date: 07/27/18 Principal diagnosis: Hyperemesis gravidarum Patient seen and examined. No acute events overnight. Tolerating breakfast this morning. No nausea or vomiting. Looking for to going home. Objective - Vital Signs Vital signs: Vital Signs Temp 97.7 F 07/27/18 08:14 Pulse 71 07/27/18 08:14 Resp 20 07/27/18 08:14 BP 108/67 07/27/18 08:14 Pulse Ox 97 07/27/18 08:14 Intake & Output 07/26/18 07/27/18 07/27/18 18:59 06:59 18:59 Intake Total 1000 520 Output Total 600 1450 Balance 400 -930 Weight 61.6 kg Intake: Oral 1000 520 Output: Urine 600 1450 Other: Voiding Method Toilet Toilet # Voids 1 - Exam General: [non toxic], [no distress], [appears at stated age] Derm: [warm], [dry] Head: [atraumatic], [normocephalic], [symmetric] Eyes: [EOMI], [no lid lag], [conjunctival hemorrhage], [no ophthalmoplegia] Mouth: [no lip lesion], [mucus membranes moist] Cardiovascular: [S1S2 reg], [no murmur], [positive DP pulse bilateral] Lungs: [CTA bilateral], [no rhonchi, no rales] , [no accessory muscle use] Ext: [no gross muscle atrophy], [no edema], [no contractures], [no tremors] Psych: [Alert], [oriented], [appropriate affect] - Labs CBC & Chem 7: 07/27/18 05:25 07/27/18 05:25 Labs: Abnormal Lab Results - Last 24 Hours (Table) 07/27/18 Range/Units 05:25 Chloride 113 H (98-107) mmol/L Carbon Dioxide 21 L (22-30) mmol/L BUN 2 L (7-17) mg/dL Creatinine 0.46 L (0.52-1.04) mg/dL Delta Bilirubin 0.3 H (0.0-0.2) mg/dL AST 88 H (14-36) U/L ALT 275 H (9-52) U/L Total Protein 5.5 L (6.3-8.2) g/dL Albumin 3.0 L (3.5-5.0) g/dL Microbiology - Last 24 Hours (Table) 07/25/18 17:05 Urine Culture - Final Urine,Voided Assessment and Plan Assessment: Assessment and Plan 1. Hyperthyroidism: TSH < 0.015, FT4 2.30. Patient does not display any symptoms of hyperthyroidism (tachycardia, goiter, ophthalmoplegia, hyperdefecation, muscle weakness or tremors). Her elevated TSH and free T4 is likely secondary to her elevated beta hCG, which is also capable of stimulating thyroid hormone. As she is not symptomatic, I would not treat at this point. Her thyroid function test is anticipated to normalize as beta hCG drops. She should follow-up with her primary care provider, and possibly endocrinology in the outpatient setting for redraw of TSH and free T4 within 2 weeks. 2. Hyperemesis gravidarium: Likely cause of chronic nausea and vomiting. UA shows signs of dehydration (ketonuria). Zofran 4 mg IV TID PRN for N/V. Continue NS at 120 cc/h. Clear liquid diet, advanced to Regular this morning. 3. Transaminitis: T. Bili 1.9 AST 215 ALT 553 ALK-P is within normal limits. Abdominal US shows bile sludge with no gallstones. General Sx consulted, likely related to dehydration rather than obstruction. DC all IV Abx. 4. : at 11 weeks. Management as per OBGYN. 5. DVT/GI Prophylaxis: Early mobilization, low risk for DVT. Patient advised to follow-up with repeat thyroid function testing within 2 weeks of discharge. She is otherwise to follow-up with her [employer]. Will sign off. Thank you for the consult.
[2018-07-27 12:45] VITALS: BP 98/62; PULSE 69; RESP 14
== END 2018-07-27 14:36 | disposition home or self-care (01) ==
LOC: EC 15:41 → 6PED 19:18
PROVIDERS: ADMIT Obstetrics & Gynecology; ATTEND Obstetrics & Gynecology
DX: O21.0 Mild hyperemesis gravidarum (principal); O99.281 Endocrine, nutritional and metabolic diseases complicating pregnancy, first trimester; E86.0 Dehydration; Z3A.11 11 weeks gestation of pregnancy; O23.11 Infections of bladder in pregnancy, first trimester; R94.6 Abnormal results of thyroid function studies; O26.611 Liver and biliary tract disorders in pregnancy, first trimester; O99.89 Other specified diseases and conditions complicating pregnancy, childbirth and the puerperium; Z83.79 Family history of other diseases of the digestive system
CPT/HCPCS: 96361; 96365; 96375; 99285; 36415; 84439; 80053 ×3; 84443; 82150; 82248; 83690; 85025 ×3; 81001; 87086; 76705; G0378 ×3; J2765; J0295 ×3

== ENCOUNTER → 2018-07-30 | Outpatient (CLI) | payer MEDICAID ==
--- NOTE | 2018-07-30 15:13 | US ---
EXAMINATION TYPE: Transabdominal DATE OF EXAM: 11/17/17 COMPARISON: NONE CLINICAL HISTORY: Z36 confirm dates. EXAM PERFORMED: Transabdominal (TA) EXAM MEASUREMENTS: GESTATIONAL AGE / DATING Physician Established: Not yet established Dates by LMP: (11 weeks/6 days) EDC: 02/12/2019 Dates by First Scan: No previous this is first scan Dates by Current Scan for: (11 weeks/3 days) EDC: 02/15/2019 MATERNAL ANATOMY Uterus: 12.3 x 7.5 x 7.6 cm Right Ovary: 2.7 x 1.7 x 1.9 cm Left Ovary: 3.3 x 2.2 x 3.0 cm Post CDS / Adnexa: wnl Presence of free fluid: No Presence of corpus luteal cyst: No Presence of subchorionic bleed: Yes, measuring 1.1 x 0.5 0.8 cm GESTATION / SURVEY CRL: 4.7 cm (11 weeks/3 days) Yolk Sac (normal less than 6mm): 3 mm Heart Rate: 170 bpm Rhythm: Normal IUP: Viable IUP Date of LMP: 05/08/2018 Beta HcG (if available): Not available at this time Viable IUP, measurements consistent with dates. IMPRESSION: 1. Single intrauterine gestation estimated at 11 weeks 3 days gestation based on crown-rump length. C ardiac activity measures 170. 2. Estimated date confinement based on current ultrasound measurements is 02/15/2019.
[2018-07-30 15:28] LABS: HCT 42.2 % (34.0-46.0); HGB 14.4 gm/dL (11.4-16.0); Mean Platelet Volume 7.7; Platelet Count 198 k/uL (150-450); RBC 4.49 m/uL (3.80-5.40); RDW 12.8 % (11.5-15.5); WBC 5.7 k/uL (3.8-10.6)
== END ==
LOC: RADUSWWP 14:16
PROVIDERS: ATTEND Obstetrics & Gynecology
DX: Z36.9 Encounter for antenatal screening, unspecified (principal); Z34.01 Encounter for supervision of normal first pregnancy, first trimester; Z3A.11 11 weeks gestation of pregnancy
CPT/HCPCS: 36415; 76801; 82565; 82947; 85027; 86762; 86780; 86850; 86900; 86901; 87340

== ENCOUNTER → 2018-08-05 | Outpatient (CLI) | payer MEDICAID ==
[2018-08-05 14:47] LABS: HCT 41.9 % (34.0-46.0); HGB 14.6 gm/dL (11.4-16.0); MCH 32.5 pg (25.0-35.0); MCHC 34.8 g/dL (31.0-37.0); MCV 93.2 fL (80.0-100.0); Mean Platelet Volume 7.7; Platelet Count 205 k/uL (150-450); RDW 12.6 % (11.5-15.5); WBC 6.5 k/uL (3.8-10.6)
[2018-08-06 03:55] LABS: Albumin 4.5 g/dL (3.80-4.90); Albumin/Globulin Ratio 2.14 (1.20-2.10); Anion Gap 11.2 mmol/L (4.00-12.00); Bilirubin, Conjugated 0.3 mg/dL (0.20-0.40); Bilirubin,Unconjugated 0.6 mg/dL; Calcium 9.6 mg/dL (8.7-10.3); Carbon Dioxide 22.8 mmol/L (21.6-31.8); Globulin 2.1 g/dL (2.1-3.7); Total Bilirubin 0.9 mg/dL (0.3-1.2); Total Protein 6.6 g/dL (6.2-8.2)
== END ==
LOC: LABWHC1 14:01
PROVIDERS: ATTEND Obstetrics & Gynecology
DX: O21.9 Vomiting of pregnancy, unspecified (principal); Z3A.00 Weeks of gestation of pregnancy not specified
CPT/HCPCS: 36415; 80053; 82248; 85027

== ENCOUNTER → 2018-09-20 | Outpatient (CLI) | payer MEDICAID ==
--- NOTE | 2018-09-20 15:53 | US ---
EXAMINATION TYPE: US OB anatomy transabd DATE OF EXAM: 09/20/2018 COMPARISON: US 2018 first trimester HISTORY: 036.62X0 second trimester, large for dates Routine anatomy scan TECHNIQUE: Transabdominal (TA) EXAM MEASUREMENTS: GESTATIONAL AGE / DATING Physician Established: (19 weeks/2 days) EDC: 02/12/2019 Dates by LMP: Unknown Dates by First Scan: (18 weeks/6 days) EDC: 02/15/2019 Dates by Current Scan for: (19 weeks/2 days) EDC: 02/12/2019 SURVEY IUP: Single PLACENTA: Anterior PREVIA: No previa MICHAEL: 11.2 cm Normal CERVICAL LENGTH (transabdominal: norm > 3.0cm): 3.2 cm BIOMETRY PRESENTATION: Breech LIE: Longitudinal BPD: 4.4 cm 19 weeks / 3 days HC: 15.9 cm 18 weeks / 5 days AC: 13.8 cm 19 weeks / 2 days FL: 3.0 cm 19 weeks / 2 days ESTIMATED WEIGHT IN GRAMS: 279 grams ESTIMATED WEIGHT IN LBS/OZ: 0 lbs. 10 oz. WEIGHT PERCENTAGE BASED ON ESTABLISHED DATE: 40 % HC/AC: 1.15 Normal FL/AC: 22% HEART RATE: 139 bpm RHYTHM: Normal ANATOMY SEEN (within normal limits): * Lateral Vent (< 1 cm) 0.8 cm * Cisterna Magna (< 1.1 cm) 0.5 cm * Nuchal Fold (< 0.6 cm) 0.2 cm * Cerebellum (varies with age) 1.8 cm Choroid Plexus (bilateral) Midline Falx Cavus Septi Pellucidi Four Chamber Heart Outflow tracts: LVOT/RVOT Stomach Situs Nose / Lips Diaphragm Kidneys (bilateral) Bladder Cord Insert Three Vessel Cord Longitudinal Spine Transverse Spine Arms (bilateral) Legs (bilateral) ANATOMY NOT SEEN: Due to positioned spine down Longitudinal Spine Transverse Spine Viable single IUP measuring 19 weeks 2 days with a heart rate of 139bpm and an estimated delivery jessi e of 02/12/2019. Patient returning for OB callback on ThursdayOctober 04 for anatomy not seen. Single live intrauterine gestation is redemonstrated. Current breech presentation is noted. No ultras ound evidence for placenta previa. Amniotic fluid index is calculated within normal limits. bio metry measurements are concordant and felt within normal limits. During real-time scanning no suspici ous anatomical abnormality is identified, suboptimal evaluation of entire spine on 2 planes is noted. IMPRESSION: As above
== END | disposition home or self-care (01) ==
LOC: RADUSWWP 14:41
PROVIDERS: ATTEND Obstetrics & Gynecology
DX: O32.1XX0 Maternal care for breech presentation, not applicable or unspecified (principal); O36.62X0 Maternal care for excessive fetal growth, second trimester, not applicable or unspecified; Z3A.19 19 weeks gestation of pregnancy
CPT/HCPCS: 76811

== ENCOUNTER → 2018-10-04 | Outpatient (CLI) | payer MEDICAID ==
--- NOTE | 2018-10-05 07:47 | US ---
EXAMINATION TYPE: US OB Call Back DATE OF EXAM: 10/04/2018 COMPARISON: US 09/20/2018 CLINICAL HISTORY: PER TECH CALLBACK FOR SPINE. GESTATIONAL AGE / DATING Dates by Initial Survey Scan: (21 weeks/2 days) EDC: 02/12/2019 HEART RATE: 144 bpm RHYTHM: Normal ANATOMY STILL NOT SEEN (requiring an additional callback appt): Long Spine Trans Spine Baby spine down. Patient scheduled for callback October 19, 2018 at 4:20PM IMPRESSION: Unsuccessful callback examination to evaluate the spine secondary to suboptimal pos itioning. Heart rate is noted to be within normal limits at 144 bpm. Patient will return on October 19, 2018 at 4:20 PM for further imaging.
== END | disposition home or self-care (01) ==
LOC: RADUSWWP 16:23
PROVIDERS: ATTEND Obstetrics & Gynecology
DX: Z53.9 Procedure and treatment not carried out, unspecified reason (principal)

== ENCOUNTER → 2018-10-19 | Outpatient (CLI) | payer MEDICAID ==
--- NOTE | 2018-10-20 06:23 | US ---
EXAMINATION TYPE: US OB Call Back DATE OF EXAM: 10/19/2018 COMPARISON: Prior ultrasound September 20, 2018 and October 04, 2018. CLINICAL HISTORY: Callback to visualize spine. GESTATIONAL AGE / DATING Dates by Initial Survey Scan: (23 weeks/3 days) EDC: 02/12/2019 HEART RATE: 139 bpm RHYTHM: Normal ANATOMY SEEN (second anatomic survey look): Longitudinal Spine: wnl Transverse Spine: wnl ANATOMY STILL NOT SEEN (requiring an additional callback appt): NONE Entire spine is better visualized on today's study in 2 planes and is felt within normal limits collin zuñiga real-time scanning and still images saved. IMPRESSION: As above.
== END | disposition home or self-care (01) ==
LOC: RADUSWWP 16:25
PROVIDERS: ATTEND Obstetrics & Gynecology
DX: Z53.9 Procedure and treatment not carried out, unspecified reason (principal)

== ENCOUNTER → 2018-10-25 | Outpatient (CLI) | payer MEDICAID ==
[2018-10-25 16:49] LABS: HCT 35.3 % (34.0-46.0); HGB 12.1 gm/dL (11.4-16.0); MCHC 34.4 g/dL (31.0-37.0); MCV 98.9 fL (80.0-100.0); Mean Platelet Volume 7.4; Platelet Count 205 k/uL (150-450); RBC 3.57 m/uL (3.80-5.40); RDW 13.3 % (11.5-15.5); WBC 10.7 k/uL (3.8-10.6)
[2018-10-26 02:06] LABS: ALT 28 U/L (8-44); AST 25 U/L (13-35); Albumin/Globulin Ratio 1.86 (1.60-3.17); Alkaline Phosphatase 74 U/L (41-126); Bilirubin, Conjugated <0.20 mg/dL (0.20-0.40); Globulin 2.1 g/dL (1.6-3.3); Total Bilirubin 0.4 mg/dL (0.2-1.2)
== END | disposition home or self-care (01) ==
LOC: LABWHC1 15:15
PROVIDERS: ATTEND Obstetrics & Gynecology
DX: Z34.02 Encounter for supervision of normal first pregnancy, second trimester (principal)
CPT/HCPCS: 36415; 80076; 82950; 85027

== ENCOUNTER → 2018-12-17 | Outpatient (CLI) | payer MEDICAID ==
--- NOTE | 2018-12-17 11:30 | US ---
EXAMINATION TYPE: US OB >= 14 wk fetus DATE OF EXAM: 12/17/2018 COMPARISON: US CLINICAL HISTORY: O36.5930 Small for dates; G1; had upper respiratory infection last week per patient history TECHNIQUE: Transabdominal (TA) GESTATIONAL AGE / DATING Physician Established: (31 weeks/6 days) EDC: 02/12/2019 Dates by LMP: unknown Dates by First Scan: (31 weeks/3 days) EDC: 02/15/2019 Dates by Current Scan: (30 weeks/4 days) EDC: 02/21/2019 Beta HCG (if available): NA SURVEY IUP: Single PLACENTA: Anterior PREVIA: No Previa MICHAEL: 13.5 cm Normal CERVICAL LENGTH (transabdominal: norm > 3.0cm): 3.3 cm BIOMETRY PRESENTATION: Breech LIE: Oblique BPD: 7.6 cm 30 weeks / 4 days HC: 28.7 cm 31 weeks / 4 days AC: 26.5 cm 30 weeks / 4 days FL: 5.9 cm 31 weeks / 0 days ESTIMATED WEIGHT IN GRAMS: 1639.0 grams ESTIMATED WEIGHT IN LBS/OZ: 3 lbs. 10 oz. WEIGHT PERCENTAGE BASED ON ESTABLISHED DATES: 12.3% HC/AC: 1.09 Normal FL/AC: 22.47 Normal HEART RATE: 113 bpm RHYTHM: Normal IMPRESSION: Single, live IUP, 30 weeks/4 days, EDC: 02/21/2019, HEART RATE: 113 bpm.
== END | disposition home or self-care (01) ==
LOC: RADUSWWP 10:10
PROVIDERS: ATTEND Obstetrics & Gynecology
DX: O36.5930 Maternal care for other known or suspected poor fetal growth, third trimester, not applicable or unspecified (principal); Z3A.30 30 weeks gestation of pregnancy
CPT/HCPCS: 76805

== ENCOUNTER → 2018-12-31 | Outpatient (CLI) | payer MEDICAID ==
--- NOTE | 2018-12-31 14:09 | US ---
EXAMINATION TYPE: US OB >= 14 wk fetus DATE OF EXAM: 12/31/2018 COMPARISON: CLINICAL HISTORY: P05.10 size less that gestational age Growth, S<D TECHNIQUE: Transabdominal (TA) GESTATIONAL AGE / DATING Physician Established: (33 weeks/6 days) EDC: 02/12/2019 Dates by First Scan: (33 weeks/3 days) EDC: 02/15/2019 Dates by Current Scan: (33 weeks/2 days) EDC: 02/16/2019 SURVEY IUP: Single PLACENTA: Anterior PREVIA: No Previa MICHAEL: 13.0 cm Normal CERVICAL LENGTH (transabdominal: norm > 3.0cm): 3.1 cm BIOMETRY PRESENTATION: Breech BPD: 7.9 cm 31 weeks / 5 days HC: 30.8 cm 34 weeks / 3 days AC: 29.9 cm 33 weeks / 6 days FL: 6.6 cm 33 weeks / 5 days ESTIMATED WEIGHT IN GRAMS: 2252 grams ESTIMATED WEIGHT IN LBS/OZ: 4 lbs. 15 oz. WEIGHT PERCENTAGE BASED ON ESTABLISHED DATES: 37.6% HC/AC: 1.0 Normal FL/AC: 21.9 Normal HEART RATE: 129 bpm RHYTHM: Normal Single live IUP measuring 33 weeks 2 days. IMPRESSION: Limited survey. Single viable intrauterine corresponding to ultrasound age 33 weeks 2 days with estimated date of delivery 02/16/2019
== END | disposition home or self-care (01) ==
LOC: RADUSWWP 10:47
PROVIDERS: ATTEND Obstetrics & Gynecology
DX: O36.5930 Maternal care for other known or suspected poor fetal growth, third trimester, not applicable or unspecified (principal); Z3A.33 33 weeks gestation of pregnancy
CPT/HCPCS: 76805

== ENCOUNTER → 2019-01-19 | Outpatient (CLI) | payer MEDICAID ==
--- NOTE | 2019-01-19 14:53 | US ---
EXAMINATION TYPE: US OB >= 14 wk fetus, US OB TV Cervical Measurement DATE OF EXAM: 01/19/2019 COMPARISON: US CLINICAL HISTORY: O36.63X0 Large for DatesLarge for dates. TECHNIQUE: Transabdominal (TA). Transvaginal targeted ultrasound was also performed of the cervix in evaluation of cervical length only. GESTATIONAL AGE / DATING Physician Established: (36 weeks/4 days) EDC: 02/12/2019 Dates by LMP: Unknown Dates by First Scan: (36 weeks/ 1 day) EDC: 02/15/2019 Dates by Current Scan: (36 weeks/2 days) EDC: 02/14/2019 SURVEY IUP: Single PLACENTA: Anterior, venous lakes seen PREVIA: No Previa MICHAEL: 14.97 cm Normal CERVICAL LENGTH (transabdominal: norm > 3.0cm): cm CERVICAL LENGTH (transvaginal: norm> 2.5cm): 2.4 cm (Supplemental transvaginal imaging performed to verify cervical length.) BIOMETRY PRESENTATION: Vertex LIE: Longitudinal BPD: 9.01 cm 36 weeks / 3 days HC: 32.22 cm 36 weeks / 4 days AC: 32.77 cm 36 weeks / 5 days FL: 7.15 cm 36 weeks / 4 days ESTIMATED WEIGHT IN GRAMS: 2990 grams ESTIMATED WEIGHT IN LBS/OZ: 6 lbs. 9 oz. WEIGHT PERCENTAGE BASED ON ESTABLISHED DATES: 55.6% HC/AC: 0.99 Normal FL/AC: 21.81 Normal HEART RATE: 146 bpm RHYTHM: Normal Single live IUP measuring 36 weeks 2 days with an YAZMIN of 02/14/2019 and a heart rate of 146 bpm. Tr ansvaginal cervical measurement of 2.4 cm. Tech: NW/KS IMPRESSION: Single live intrauterine with a sonographic age of 36 weeks and 2 days and estimated date o f delivery of 02/14/2019. The cervix is shortened measuring 2.4 cm. This finding was communicated with the ordering physician's office to Ciera by the grocery shopper at the end of the examination.
== END | disposition home or self-care (01) ==
LOC: RADUSWWP 13:05
PROVIDERS: ATTEND Obstetrics & Gynecology
DX: O36.63X0 Maternal care for excessive fetal growth, third trimester, not applicable or unspecified (principal); Z3A.36 36 weeks gestation of pregnancy
CPT/HCPCS: 76805; 76817

== ENCOUNTER 2019-02-02 13:52 | Inpatient (IN) | payer MEDICAID ==
[2019-02-02] MEDS ORDERED: LIDOCAINE 0.5% (PF) 5 MG/ML (50 ML SDV) SQ PRN (15:15)
[2019-02-02] MEDS ORDERED: CARBOPROST TROMETHAMINE 250 MCG/ML 1 ML AMP IM PRN (15:15)
[2019-02-02] MEDS ORDERED: METHYLERGONOVINE 0.2 MG/ML 1 ML AMP IM PRN (15:15)
[2019-02-02] MEDS ORDERED: TERBUTALINE 1 MG/ML VIAL SQ PRN (15:15)
[2019-02-02] MEDS ORDERED: OXYTOCIN 10 UNIT/ML 1 ML VIAL IM PRN (15:15)
[2019-02-02] MEDS ORDERED: OXYTOCIN 30 UNITS/500 ML NS 30 UNIT in SALINE 1 500ML.BAG IV SCH (15:30)
[2019-02-02 15:45] LABS: Basophils % (A) 0 %; Eosinophils # (A) 0.1 k/uL (0-0.7); Eosinophils % (A) 1 %; HCT 37.2 % (34.0-46.0); HGB 12.4 gm/dL (11.4-16.0); Lymphocytes # (A) 1.3 k/uL (1.0-4.8); Lymphocytes % (A) 13 %; MCHC 33.4 g/dL (31.0-37.0); Mean Platelet Volume 9.3; Monocytes # (A) 0.6 k/uL (0-1.0); Monocytes % (A) 6 %; Neutrophils # (A) 8.1 k/uL (1.3-7.7); Neutrophils % (A) 78 %; Platelet Count 263 k/uL (150-450); RBC 4.01 m/uL (3.80-5.40); WBC 10.4 k/uL (3.8-10.6)
[2019-02-02] MEDS: LACTATED RINGERS 1,000 ML IV SCH ×2 (17:16→23:56)
--- NOTE | 2019-02-02 17:58 | P.HPOB ---
History of Present Illness H&P Date: 02/02/19 Chief Complaint: Contractions This patient is a pleasant 28-year-old 1 para 0 female estimated date of confinement 02/12/2019 estimated gestational age 38-4/7 weeks who presented my office today for OB visit was having some contractions was 1 cm dilated patient have some bleeding and after exam therefore center labor and delivery for observation cervix progressed to 3-4 cms dilated thought to be in early labor. Patient's care has been complicated by significant first trimester nausea vomiting with elevated liver function tests this did resolve by appr oximately 18-20 weeks. She also had an ultrasound showed small for gestational age at 32 weeks however subsequent growth ultrasound showed normal growth. Review of Systems Gastrointestinal: Reports heartburn Genitourinary: Reports pelvic pain Menstruation: Reports amenorrhea Past Medical History Past Medical History: No Reported History, Liver Disease Additional Past Medical History / Comment(s): hyperemesis, gallbladder disease with History of Any Multi-Drug Resistant Organisms: None Reported Past Surgical History: No Surgical Hx Reported Additional Past Anesthesia/Blood Transfusion Reaction / Comment(s): no hx Past Psychological History: ADD/ADHD Additional Psychological History / Comment(s): in 3rd grade, resolved. Smoking Status: Never smoker Past Alcohol Use History: None Reported Past Drug Use History: None Reported - Past Family History Mother Family Medical History: No Reported History Additional Family Medical History / Comment(s): hyperemesis Father Family Medical History: No Reported History Medications and Allergies Allergies Allergy/AdvReac Type Severity Reaction Status Date / Time No Known Allergies Allergy Verified 02/02/19 13:59 Exam Vital Signs Temp Pulse Resp BP Pulse Ox 02/02/19 15:10 97.5 F L 94 18 120/71 98 02/02/19 14:20 97.5 F L 94 18 120/71 98 Intake and Output 02/02/19 02/02/19 02/02/19 06:59 14:59 22:59 Other: Weight 154 kg 70.085 kg - OBG Physical Exam Abdomen: bowel sounds normal, no diffuse tenderness, no bruit present, no guarding noted, no hepatomegaly, no splenomegaly, no mass Vulva: both: normal Vagina: normal moisture, no discharge Cervix: no lesion (Cervix in the office is 1 cm after approximately 1 hour she changes to 3 cm dilated), no discharge Uterus: enlarged (Fundal height is 37 cm) Results blood work shows she is A positive, rubella immune, RPR nonreactive, hepatitis B negative, Glucola was normal, group B strep was negative ultrasound done earlier in the showed sludge with elevated liver function tests followed by Dr. Castaneda. Most recent ultrasound showed estimated weight at 6 lbs. 9 oz. in the 55th percentile Result Diagrams: 02/02/19 15:25 Abnormal Lab Results - Last 24 Hours (Table) 02/02/19 Range/Units 15:25 Neutrophils # 8.1 H (1.3-7.7) k/uL Assessment and Plan Assessment: This is a pleasant 28-year-old 1 para 0 female 38-4/7 weeks gestation with early labor. Plan at this time is artificial rupture membranes and Pitocin augmentation of labor if necessary. Anticipate vaginal delivery. (1) 38 weeks gestation of Current Visit: Yes Status: Acute Code(s): Z3A.38 - 38 WEEKS GESTATION OF SNOMED Code(s): 67924646 (2) Normal labor Current Visit: Yes Status: Acute Code(s): O80 - ENCOUNTER FOR FULL-TERM UNCOMPLICATED DELIVERY; Z37.9 - OUTCOME OF DELIVERY, UNSPECIFIED SNOMED Code(s): 11937695
--- NOTE | 2019-02-02 18:00 | P.MSEPDOC ---
Presenting Problems - Arrival Data Date of Arrival on Unit: 02/02/19 Time of Arrival on Unit: 14:10 Mode of Transport: Ambulatory - Complaint OB-Reason for Admission/Chief Complaint: Possible Onset of Labor Medical History - Information : 1 Para: 0 Term: 0 : 0 Abortions: Spontaneous or Elective: 0 Number of Living Children: 0 - Gestational Age Gestational Age by YAZMIN (wks/days): 38 Weeks and 4 Days Review of Systems - Review of Systems Constitutional: No problems Breast: No problems ENT: No problems Cardiovascular: No problems Respiratory: No problems Gastrointestinal: No problems Genitourinary: No problems Musculoskeletal: No problems Neurological: No problems Skin: No problems Vital Signs - Temperature Temperature: 97.5 F Temperature Source: Oral - Pulse Right Brachial Pulse Rate: 94 Pulse Assessment Method: Automatic Cuff - Respirations Respiratory Rate: 18 Oxygen Delivery Method: Room Air O2 Sat by Pulse Oximetry: 98 - Blood Pressure Right Arm Blood Pressure: 120/71 Blood Pressure Mean: 87 Blood Pressure Source: Automatic Cuff Medical Screen Scoring (Pre) - Cervical Exam Dilation: 1-3 cm = 1 Membranes: Intact - Maternal Vital Signs Maternal Temperature: N/A Maternal Blood Pressure: N/A Signs of Preeclampsia: N/A Maternal Respirations: N/A - Maternal Trauma Maternal Trauma: N/A - Assessment - Baby A Baseline FHR: 130 Heart Rate - NICHD Category: Category I (Normal) = 0 NST: Reactive Position: N/A Station: N/A - Total Score - Baby A Total Score - Baby A: 1 - Total Score - Baby B Total Score - Baby B: 1 - Total Score - Baby C Total Score - Baby C: 1 - Level of Risk - Baby A Level of Risk - Baby A: Low (0-5) - Level of Risk - Baby B Level of Risk - Baby B: Low (0-5) - Level of Risk - Baby C Level of Risk - Baby C: Low (0-5) Physician Notification (Pre) - Physician Notified Spoke With: skylar - Notification Comment Comment: dr cheng here. observe pt and recheck cervix in one hour. if no change start pitocin per protocol Disposition - Disposition OB Disposition: Admit I agree with the RN Medical Screening Exam: Yes Risk & Benefit of care provided described in d/c instruction: Yes Diagnosis: ENCOUNTER FOR FULL-TERM UNCOMPLICATED DELIVERY
[2019-02-02] MEDS: BUTORPHANOL 1 MG/ML 1 ML VIAL IV PRN ×2 (18:49→20:35)
[2019-02-02] MEDS ORDERED: LANOLIN CREAM 5 GM TUBE TOPICAL PRN (23:36)
[2019-02-02] MEDS ORDERED: diphenhydrAMINE 25 MG CAP PO PRN (23:36)
[2019-02-02] MEDS ORDERED: diphenhydrAMINE 50 MG/ML 1 ML VIAL IVP PRN (23:36)
[2019-02-02] MEDS ORDERED: ZOLPIDEM 5 MG TAB PO PRN (23:36)
[2019-02-02] MEDS ORDERED: BENZOCAINE/MENTHOL SPRAY 1 GM/SPRAY AEROSOL TOPICAL PRN (23:36)
[2019-02-02] MEDS ORDERED: HYDROCORTISONE 2.5% RECTAL CREAM 30 GM TUBE RECTAL PRN (23:36)
[2019-02-02] MEDS ORDERED: WITCH HAZEL 1 EACH MED..PAD TOPICAL PRN (23:36)
[2019-02-02] MEDS ORDERED: SIMETHICONE 80 MG CHEWABLE PO PRN (23:36)
[2019-02-02] MEDS ORDERED: ceFAZolin IN SWFI 2 GM/20 ML SYRINGE IVP STA (23:39)
[2019-02-02] MEDS ORDERED: OXYTOCIN 20 UNITS/1000 ML NS 1,000 ML IV SCH (23:45)
[2019-02-02] MEDS: IBUPROFEN 600 MG TAB PO PRN (23:50)
--- NOTE | 2019-02-02 23:52 | P.PROBDLV ---
Vaginal Delivery Note - . Vaginal Delivery Note: Normal spontaneous vaginal delivery viable male infant Apgars 9 and 9 delivery time is 2049 hrs Please see dictated H&P for intimate details of this patient's admission. Brief summary this is a pleasant 28-year-old 1 para 0 female 38-4/7 weeks gestation admitted this afternoon in active labor. On admission patient is 1-2 cm dilated and goes to 4 cm dilated. At that time she has artificial rupture membranes for clear fluid. Labor progresses she does receive a very small amount of Pitocin. Patient receives 2 doses of Stadol in labor and then gets to complete. With one push patient pushes the head to the perineum. This time she does have episodes of bradycardia to the 70s and 60s with pushing. To facilitate delivery I infiltrate the posterior perineum and make a midline episiotomy. At this time we then have controlled delivery of the 's head over the perineum. Mouth and nares are bulb suctioned. There is a nuchal cord which is reduced. With gentle downward traction we then have deliver the anterior and posterior shoulder and rest of this 's body. This is a vigorous viable male Apgars are 9 and 9 delivery time was 2249 hrs. After delivery of the infant the umbilical cord is doubly clamped and cut appears to be trivascular. Placenta spontaneously delivered intact. Inspection of the perineum shows a fourth degree laceration. Laceration is approximately 2.5 cm from the anal verge. Rectal mucosa is cleanly disrupted. I placed a Gelpi into the field to visualize direct mucosal an surveyor instrument assistant is brought into help retract as well. Using a 4-0 Vicryl on a noncutting needle I isolate the apex of the rectal defect in a running locked fashion completely reapproximate the rectal mucosa. A second layer is placed as well for added support. This again is done with a 4-0 Vicryl. Rectal exam at this time shows no defects in excellent reapproximation. I then take 2 Allis clamps and localized the rectal muscle and sheath. Using a 3-0 suture in an interrupted fashion 4 the rectal muscle and sheath was reapproximated. Again good reapproximation is noted. Finally at this point the vaginal mucosa is reapproximated in usual fashion using a 3-0 Vicryl running fashion. A final rectal exam shows no defects in good reapproximation of the rectal sphincter. This time all counts are correct 3. Infant and mother are stable delivery room. I am going to give her a dose of IV antibiotics due to the fourth degree laceration and will continue routine. Care including stool softeners.
[2019-02-03] MEDS: DOCUSATE 100 MG CAP PO SCH ×3 (00:53→20:43)
[2019-02-03] MEDS: ACETAMINOPHEN TAB 325 MG TAB PO PRN ×3 (02:39→15:45)
--- NOTE | 2019-02-03 06:30 | P.PNOBGVD ---
Subjective - Subjective Patient reports: Reports appetite normal, Reports voiding normally, Reports pain well controlled, Reports ambulating normally : doing well Objective - Latest Vital Signs Latest vital signs: Vital Signs Temp Pulse Resp BP Pulse Ox 02/03/19 04:00 98.1 F 80 16 115/75 02/03/19 01:00 97.2 F L 84 16 126/75 100 02/03/19 00:30 74 16 127/71 02/03/19 00:15 76 16 125/71 02/03/19 00:00 97.4 F L 92 16 122/73 02/02/19 23:45 98.3 F 96 16 125/77 02/02/19 23:30 97.4 F L 102 H 16 132/67 02/02/19 18:00 97.5 F L 94 18 120/71 98 02/02/19 15:10 97.5 F L 94 18 120/71 98 02/02/19 14:20 97.5 F L 94 18 120/71 98 Intake and Output 02/02/19 02/02/19 02/03/19 14:59 22:59 06:59 Intake Total 1999 Balance 1999 Intake: Intake, IV Titration 2000 Amount Lactated Ringers 1,000 ml 1000 @ 125 mls/hr IV .Q8H BECKY Rx#:[id number] Oxytocin 20 Units/1000 ml 1000 Ns 1,000 ml @ Per Protocol IV .Q0M BECKY Rx#: [id number] Other: Voiding Method Toilet # Voids 1 Weight 154 kg 70.085 kg - Exam Lungs: bilateral: normal Chest: Normal S1, Normal S2 Extremities: Present: normal Abdomen: Present: normal appearance, soft Uterus: Present: normal, firm - Labs Labs: Abnormal Lab Results - Last 24 Hours (Table) 02/02/19 Range/Units 15:25 Neutrophils # 8.1 H (1.3-7.7) k/uL Assessment and Plan Assessment: day #1. Patient is resting without complaints. Vital signs are stable and she is afebrile. Uterus is firm nontender and she is having normal lochia. Plan today is to continue routine care. Most likely discharge home tomorrow (1) 38 weeks gestation of Current Visit: Yes Status: Acute Code(s): Z3A.38 - 38 WEEKS GESTATION OF SNOMED Code(s): 79366314 (2) Normal labor Current Visit: Yes Status: Acute Code(s): O80 - ENCOUNTER FOR FULL-TERM UNCOMPLICATED DELIVERY; Z37.9 - OUTCOME OF DELIVERY, UNSPECIFIED SNOMED Code(s): 08291586
[2019-02-03 07:31] LABS: Basophils % (A) 0 %; Eosinophils # (A) 0.1 k/uL (0-0.7); Eosinophils % (A) 0 %; HCT 32.3 % (34.0-46.0); HGB 10.9 gm/dL (11.4-16.0); Lymphocytes # (A) 1.7 k/uL (1.0-4.8); Lymphocytes % (A) 9 %; MCHC 33.7 g/dL (31.0-37.0); MCV 92.1 fL (80.0-100.0); Mean Platelet Volume 9.7; Monocytes # (A) 0.7 k/uL (0-1.0); Monocytes % (A) 4 %; Neutrophils % (A) 86 %; Platelet Count 259 k/uL (150-450); RBC 3.51 m/uL (3.80-5.40); RDW 13.9 % (11.5-15.5); WBC 19.9 k/uL (3.8-10.6)
[2019-02-03] MEDS: AMOXIC-POT CLAV 875-125MG 1 EACH TAB PO SCH ×2 (09:44→20:42)
[2019-02-03] MEDS: IBUPROFEN 600 MG TAB PO PRN ×2 (11:30→19:38)
--- NOTE | 2019-02-04 06:09 | P.PNOBGVD ---
Subjective - Subjective Patient reports: Reports appetite normal, Reports voiding normally, Reports pain well controlled, Reports ambulating normally : doing well Objective - Latest Vital Signs Latest vital signs: Vital Signs Temp Pulse Resp BP 02/04/19 00:00 98.2 F 90 18 110/75 02/03/19 20:00 97.7 F 83 18 113/66 02/03/19 16:00 97.6 F 93 18 126/77 02/03/19 08:00 98.4 F 83 18 123/76 Intake and Output 02/03/19 02/03/19 02/04/19 14:59 22:59 06:59 Other: Voiding Method Toilet # Voids 1 - Exam Lungs: bilateral: normal Chest: Normal S1, Normal S2 Extremities: Present: normal Abdomen: Present: normal appearance, soft Uterus: Present: normal, firm - Labs Labs: Abnormal Lab Results - Last 24 Hours (Table) 02/03/19 Range/Units 07:21 WBC 19.9 H (3.8-10.6) k/uL RBC 3.51 L (3.80-5.40) m/uL Hgb 10.9 L (11.4-16.0) gm/dL Hct 32.3 L (34.0-46.0) % Neutrophils # 17.0 H (1.3-7.7) k/uL Assessment and Plan Assessment: day #2. Patient is resting without new complaints. Vital signs are stable and she is afebrile. Uterus is firm nontender and she is having normal lochia. I am repeating her CBC because her white count was mildly elevated yesterday but most likely just from delivery. She is afebrile. Plan today is to continue routine care and discharge home later on. (1) 38 weeks gestation of Current Visit: Yes Status: Acute Code(s): Z3A.38 - 38 WEEKS GESTATION OF SNOMED Code(s): 98763596 (2) Normal labor Current Visit: Yes Status: Acute Code(s): O80 - ENCOUNTER FOR FULL-TERM UNCOMPLICATED DELIVERY; Z37.9 - OUTCOME OF DELIVERY, UNSPECIFIED SNOMED Code(s): 53638331
--- NOTE | 2019-02-04 06:13 | P.DS ---
Providers Date of admission: 02/02/19 15:03 Expected date of discharge: 02/04/19 Attending physician: Neil Salvador Primary care physician: Stated None - Discharge Diagnosis(es) (1) 38 weeks gestation of Current Visit: Yes Status: Acute (2) Normal labor Current Visit: Yes Status: Acute Hospital Course: Please see dictated H&P for intimate details of this patient's admission. In brief summary this is a pleasant 28-year-old 1 para 0 female 38-4/7 weeks who presents to labor and delivery in active labor. Patient quickly was on to have a vaginal delivery viable male infant. Please see dictated delivery note. Patient's delivery was complicated by a fourth degree laceration and therefore she's placed on some IV and oral antibiotics. Patient did very well was felt be stable for discharge home on day #2. Procedures: Normal spontaneous vaginal delivery Patient Condition at Discharge: Good Plan - Discharge Summary New Discharge Prescriptions: New Amoxic-Pot Clav 875-125Mg [Augmentin 875-125] 1 each PO Q12HR 6 Days #12 tab Docusate [Colace] 100 mg PO BID #60 cap Ibuprofen [Motrin] 600 mg PO Q6HR PRN #40 tab PRN Reason: Mild Pain Or Fever >= 100.5 Discharge Medication List Amoxic-Pot Clav 875-125Mg [Augmentin 875-125] 1 each PO Q12HR 6 Days #12 tab 02/04/19 [Rx] Docusate [Colace] 100 mg PO BID #60 cap 02/04/19 [Rx] Ibuprofen [Motrin] 600 mg PO Q6HR PRN #40 tab 02/04/19 [Rx] Follow up Appointment(s)/Referral(s): Neil Salvador MD [STAFF PHYSICIAN] - 03/17/19 2:00 pm Patient Instructions/Handouts: Vaginal Delivery (DC) Activity/Diet/Wound Care/Special Instructions: No intercourse or anything per vagina for 6 weeks. Please take the antibiotic and stool softeners as directed. Please call if any fever, chills, excessive vaginal bleeding, and/or abdominal pain. Discharge Disposition: HOME SELF-CARE
[2019-02-04 06:56] LABS: Basophils # (A) 0.1 k/uL (0-0.2); Basophils % (A) 0 %; Eosinophils # (A) 0.2 k/uL (0-0.7); Eosinophils % (A) 2 %; HCT 28.3 % (34.0-46.0); HGB 9.5 gm/dL (11.4-16.0); Lymphocytes # (A) 2.9 k/uL (1.0-4.8); Lymphocytes % (A) 25 %; MCH 31.3 pg (25.0-35.0); MCHC 33.5 g/dL (31.0-37.0); MCV 93.6 fL (80.0-100.0); Mean Platelet Volume 9.1; Monocytes # (A) 0.5 k/uL (0-1.0); Monocytes % (A) 4 %; Neutrophils # (A) 7.5 k/uL (1.3-7.7); Neutrophils % (A) 67 %; Platelet Count 255 k/uL (150-450); RBC 3.02 m/uL (3.80-5.40); WBC 11.3 k/uL (3.8-10.6)
[2019-02-04 07:58] VITALS: BP 117/72; PULSE 85; RESP 15; TEMP 97.9
[2019-02-04] MEDS: DOCUSATE 100 MG CAP PO SCH (10:25)
[2019-02-04] MEDS: AMOXIC-POT CLAV 875-125MG 1 EACH TAB PO SCH (10:25)
[2019-02-04] MEDS: IBUPROFEN 600 MG TAB PO PRN (12:03)
== END 2019-02-04 15:40 | disposition home or self-care (01) | DRG 768 ==
LOC: FBPOP 13:52 → 4FBP 15:03
PROVIDERS: ADMIT Obstetrics & Gynecology; ATTEND Obstetrics & Gynecology
PROC: 10E0XZZ Delivery of Products of Conception, External Approach (ICD-10-PCS; principal; 2019-02-02)
PROC: 0W8NXZZ Division of Female Perineum, External Approach (ICD-10-PCS; principal; 2019-02-02)
PROC: 0DQP0ZZ Repair Rectum, Open Approach (ICD-10-PCS; principal; 2019-02-02)
DX: O69.81X0 Labor and delivery complicated by cord around neck, without compression, not applicable or unspecified (principal); Z37.0 Single live birth; O70.3 Fourth degree perineal laceration during delivery; O76 Abnormality in fetal heart rate and rhythm complicating labor and delivery; K82.9 Disease of gallbladder, unspecified; O99.619 Diseases of the digestive system complicating pregnancy, unspecified trimester; Z3A.38 38 weeks gestation of pregnancy
CPT/HCPCS: 59025; 85025; 86850; 86900; 86901; 99213

== ENCOUNTER → 2019-03-28 | Outpatient (CLI) | payer MEDICAID ==
[2019-03-28 17:23] LABS: African American GFR (CKD) 117.1 (60.0-200.0); Albumin 4.6 g/dL (3.80-4.90); Albumin/Globulin Ratio 2.42 (1.60-3.17); Anion Gap 8.3 mmol/L (4.00-12.00); BUN/Creat Ratio 18.75 Ratio (12.00-20.00); Calcium 9.2 mg/dL (8.7-10.3); Carbon Dioxide 24.7 mmol/L (21.6-31.8); Globulin 1.9 g/dL (1.6-3.3); Potassium 4.3 mmol/L (3.5-5.5); Total Bilirubin 0.4 mg/dL (0.2-1.2); Total Protein 6.5 g/dL (6.2-8.2)
== END | disposition home or self-care (01) ==
LOC: LABWHC1 10:11
PROVIDERS: ATTEND Surgery
DX: K81.1 Chronic cholecystitis (principal)
CPT/HCPCS: 36415; 80053

== ENCOUNTER 2019-05-04 07:07 | Day surgery (SDC) | payer MEDICAID ==
[2019-05-03 08:47] VITALS: BMI 21.2
[~2019-05-04 07:07] MED LIST: DEXAMETHASONE SOD PHOSPHATE 10 MG/ML 1 ML VIAL IV ONE; HEPARIN SODIUM,PORCINE 5,000 UNIT/ML 1 ML VIAL SQ ONE; HYDROmorphone 0.5 MG/0.5 ML SYRINGE IVP PRN; LACTATED RINGERS 1,000 ML IV SCH
[2019-05-04] MEDS ORDERED: LIDOCAINE 1% 20 ML VIAL (10MG/ML) FOR IV START INTRADERMA ONE (07:38)
[2019-05-04] MEDS: ONDANSETRON 4 MG/2 ML VIAL IVP ONE ×2 (07:47→10:07)
--- NOTE | 2019-05-04 07:57 | P.GSHP ---
History of Present Illness H&P Date: 05/04/19 Chief Complaint: chronic cholecystitis Patient has today for elective cholecystectomy. Had symptomatic cholelithiasis/chronic cholecystitis during her . Did have transient liver enzyme elevation at that time. Still having mild right upper quadrant pain. Some nausea. Also described loose stools at times. No change in the color of her skin urine or stool. Ultrasound showed gallstones/sludge. Past Medical History Past Medical History: Liver Disease Additional Past Medical History / Comment(s): gallbladder disease History of Any Multi-Drug Resistant Organisms: None Reported Past Surgical History: No Surgical Hx Reported Additional Past Anesthesia/Blood Transfusion Reaction / Comment(s): no hx Smoking Status: Never smoker - Past Family History Mother Family Medical History: No Reported History Additional Family Medical History / Comment(s): hyperemesis Father Family Medical History: No Reported History Medications and Allergies Home Medications Medication Instructions Recorded Confirmed Type No Known Home Medications 05/03/19 05/04/19 History Allergies Allergy/AdvReac Type Severity Reaction Status Date / Time No Known Allergies Allergy Verified 05/04/19 07:30 Surgical - Exam Vital Signs Temp Pulse Resp BP Pulse Ox 98 F 85 16 138/75 100 05/04/19 07:24 05/04/19 07:24 05/04/19 07:24 05/04/19 07:24 05/04/19 07:24 Physical exam: General: Well-developed, well-nourished HEENT: Normocephalic, sclerae nonicteric Abdomen: Nontender, nondistended Extremities: No edema Neuro: Alert and oriented Assessment and Plan (1) Chronic cholecystitis Narrative/Plan: Will proceed with laparoscopic cholecystectomy, possible open cholecystectomy at this time. Risks of bleeding, infection, bile leak, bile duct injury, retained common bile duct stone, trocar injury, conversion to an open procedure, hernia, anesthesia related complications were reviewed. The patient understands and wishes to proceed. Current Visit: Yes Status: Acute Code(s): K81.1 - CHRONIC CHOLECYSTITIS SNOMED Code(s): 76255013
[2019-05-04] MEDS: MIDAZOLAM (PF) 2 MG/2 ML VIAL IV ONE ×2 (08:03→08:06)
[2019-05-04] MEDS ORDERED: HYDROmorphone (PF) 1 MG/ML ONE (08:23)
[2019-05-04] MEDS ORDERED: PROPOFOL 10 MG/ML 20 ML VIAL IV ONE (08:23)
[2019-05-04] MEDS ORDERED: MIDAZOLAM 2 MG/2 ML VIAL ONE (08:23)
[2019-05-04] MEDS ORDERED: ROCURONIUM BROMIDE 10 MG/ML 10 ML VIAL IV ONE (08:23)
[2019-05-04] MEDS ORDERED: ePHEDrine SULFATE/0.9% NACL/PF 50 MG/5 ML SYRINGE IV ONE (08:23)
[2019-05-04] MEDS ORDERED: NEOSTIGMINE 1 MG/ML 10 ML VIAL ONE (08:23)
[2019-05-04] MEDS ORDERED: GLYCOPYRROLATE 0.2 MG/ML 2 ML VIAL ONE (08:23)
[2019-05-04] MEDS ORDERED: LIDOCAINE 1% INJ 10MG/ML (20 ML MDV) ONE (08:23)
[2019-05-04] MEDS ORDERED: SUCCINYLCHOLINE CHLORIDE 100 MG/5 ML SYR IV ONE (08:23)
[2019-05-04] MEDS ORDERED: fentaNYL (PF) 50 MCG/ML 2 ML AMP ONE (08:23)
[2019-05-04] MEDS ORDERED: BUPIVACAINE (PF) 0.25% 30 ML VIAL SQ ONE ×2 (08:50)
[2019-05-04] MEDS ORDERED: NALOXONE 0.4 MG/ML 1 ML VIAL IV PRN (09:30)
[2019-05-04] MEDS ORDERED: HYDROcodone/APAP 5-325MG 1 EACH TAB PO PRN (09:30)
--- NOTE | 2019-05-04 09:32 | P.OP ---
Date of Procedure: 05/04/19 Procedure(s) Performed: PREOPERATIVE DIAGNOSIS: Chronic cholecystitis POSTOPERATIVE DIAGNOSIS: Same PROCEDURE: Laparoscopic cholecystectomy SURGEON: Tonya EBL: Minimal see anesthesia record ANESTHESIA: Gen. COMPLICATIONS: None OPERATIVE PROCEDURE: The patient was brought and placed on the operating room table in the supine position. The patient was placed under general anesthesia at that time. The abdomen was prepped and draped in the usual sterile fashion. A small vertical infraumbilical incision was made. The fascia was grasped with the Andreina forceps. The fascia was retracted anteriorly. The Veress needle was advanced into the peritoneal cavity. The saline drop test was normal. Insufflation took place up to 15 mmHg. A 5 mm optical trocar was advanced and the peritoneal cavity. 2 additional 5 mm trochars were placed in the right upper quadrant under direct visualization. A 12 mm trocar was advanced into the epigastric incision site. The gallbladder was retracted superiorly and laterally. The peritoneum overlying the infundibulum was bluntly dissected. The patient's cystic duct was visualized. The junction between the cystic duct common and hepatic duct was identified. The cystic duct was then divided after placement of 3 12 mm clips on the patient's side and one on the specimen side. The cystic artery was identified and clipped as well. A small vessel was seen along the gallbladder fossa and clipped as well. The gallbladder was then removed from the liver bed using electrocautery. The gallbladder was then removed from the epigastric trocar site with an Endo Catch bag. The gallbladder fossa was irrigated with saline. There was no evidence of any bleeding or biliary drainage seen. The fascia at the 12 millimeter site was closed using a Yoshi-Ellen 0 Vicryl stitch. The trochars were then removed. The skin at all 4 sites was closed using a 4-0 Monocryl stitch. Skin glue was utilized on the incision sites. At the end of this procedure the sponge and needle counts were correct. DISPOSITION: Stable to the recovery room
[2019-05-04 09:50] VITALS: TEMP 97
[2019-05-04] MEDS ORDERED: KETOROLAC 30 MG/ML 1 ML VIAL IVP ONE (10:03)
[2019-05-04] MEDS ORDERED: LACTATED RINGERS 1,000 ML IV ONE (10:16)
[2019-05-04 10:30] VITALS: RESP 16
[2019-05-04] MEDS ORDERED: HYDROcodone/APAP 5-325MG 1 EACH TAB PO ONE (10:55)
[2019-05-04 11:14] VITALS: BP 120/76; PULSE 91
== END 2019-05-04 11:57 | disposition home or self-care (01) ==
LOC: OR 07:07
PROVIDERS: ATTEND Surgery
DX: K80.10 Calculus of gallbladder with chronic cholecystitis without obstruction (principal); F90.9 Attention-deficit hyperactivity disorder, unspecified type; Z98.890 Other specified postprocedural states; Z87.19 Personal history of other diseases of the digestive system; Z86.2 Personal history of diseases of the blood and blood-forming organs and certain disorders involving the immune mechanism
CPT/HCPCS: 81025; 88304; 47562; J2250 ×2; J1644; J1100; J2710; J0690; J2405; J2001; J3010; J1885; J1170; J0330; J2704

== ENCOUNTER 2019-06-22 09:38 | Emergency (ER) | payer MEDICAID ==
[2019-06-22 09:47] VITALS: TEMP 97.9
[2019-06-22] MEDS ORDERED: SODIUM CHLORIDE 0.9% 500 ML 500 ML IV STA (10:20)
[2019-06-22] MEDS ORDERED: ONDANSETRON 4 MG/2 ML VIAL IVP STA (10:20)
[2019-06-22] MEDS ORDERED: KETOROLAC 30 MG/ML 1 ML VIAL IVP STA (10:20)
[2019-06-22 10:57] LABS: Basophils # (A) 0.1 k/uL (0-0.2); Basophils % (A) 0 %; Eosinophils # (A) 0.1 k/uL (0-0.7); Eosinophils % (A) 1 %; HCT 40.5 % (34.0-46.0); HGB 13.7 gm/dL (11.4-16.0); Lymphocytes # (A) 0.7 k/uL (1.0-4.8); Lymphocytes % (A) 7 %; MCH 29.6 pg (25.0-35.0); MCHC 33.7 g/dL (31.0-37.0); MCV 87.7 fL (80.0-100.0); Mean Platelet Volume 6.5; Monocytes # (A) 0.6 k/uL (0-1.0); Monocytes % (A) 5 %; Neutrophils # (A) 9.3 k/uL (1.3-7.7); Neutrophils % (A) 86 %; Platelet Count 235 k/uL (150-450); RBC 4.62 m/uL (3.80-5.40); RDW 13.5 % (11.5-15.5); WBC 10.9 k/uL (3.8-10.6)
--- NOTE | 2019-06-22 11:04 | ED ---
Back Pain HPI - General Chief Complaint: Back Pain/Injury Stated Complaint: back pain Time Seen by Provider: 06/22/19 10:04 Source: patient Limitations: no limitations - History of Present Illness Initial Comments: Patient is a 28-year-old female presenting to the emergency Department with complaints of thoracic pain has been intermittent for the last 7 weeks. Patient had a cholecystectomy by Dr. De approximately 7 weeks ago and ever since the surgery she has had intermittent thoracic pain that starts out of the blue and is severe in nature. Patient states the pains will sometimes make her nauseous but she has never vomited until today. Today, the pain started last night and is constant and she had 2 episodes of vomiting this morning. He rates the pain as 6/10 currently. Patient states that sometimes when she bends over or bends over to vegetable picker her baby's the pain intensifies. Patient has tried Aleve without improvement in symptoms. There are no other alleviating factors. Patient denies any fever, chills, abdominal pain, diarrhea. Patient states she did have a follow-up with Dr. De and she's been healing well. Patient also has a 4-month-old at home. Patient had vaginal delivery without complications. Patient denies any vaginal pain, vaginal bleeding. Patient denies any trauma or falls. Patient denies any history of back surgeries. P atient has no other pertinent past medical history and takes no medications. Patient has no other complaints at this time. Upon arrival to the ER, vital signs are stable. - Related Data Previous Rx's Medication Instructions Recorded Hydrocodone/Acetaminophen [Jermyn 1 tab PO Q6HR PRN 3 Days #10 tab 05/04/19 5-325] Ondansetron Odt [Zofran Odt] 4 mg PO Q8HR PRN #10 tab 06/22/19 Allergies Allergy/AdvReac Type Severity Reaction Status Date / Time No Known Allergies Allergy Verified 06/22/19 09:43 Review of Systems ROS Statement: Those systems with pertinent positive or pertinent negative responses have been documented in the HPI. ROS Other: All systems not noted in ROS Statement are negative. Past Medical History Past Medical History: Liver Disease Additional Past Medical History / Comment(s): hyperemesis, gallbladder disease with History of Any Multi-Drug Resistant Organisms: None Reported Past Surgical History: No Surgical Hx Reported, Cholecystectomy Additional Past Anesthesia/Blood Transfusion Reaction / Comment(s): no hx Past Psychological History: ADD/ADHD Smoking Status: Never smoker Past Alcohol Use History: None Reported Past Drug Use History: None Reported - Past Family History Mother Family Medical History: No Reported History Additional Family Medical History / Comment(s): hyperemesis Father Family Medical History: No Reported History General Exam - General Exam Comments Initial Comments: GENERAL: Well-appearing, well-nourished and in no acute distress. HEAD: Atraumatic, normocephalic. EYES: Pupils equal round and reactive to light, extraocular movements intact, sclera anicteric, conjunctiva are normal. ENT: Nares patent, oropharynx clear without exudates. Moist mucous membranes. NECK: Normal range of motion, supple without lymphadenopathy or JVD. LUNGS: Breath sounds clear to auscultation bilaterally and equal. No wheezes rales or rhonchi. HEART: Regular rate and rhythm without murmurs, rubs or gallops. ABDOMEN: Soft, nontender, normoactive bowel sounds. No guarding, no rebound. No masses appreciated. EXTREMITIES: Normal range of motion, no pitting or edema. No clubbing or cyanosis. No pain to palpation of the cervical, thoracic, lumbar spine. Patient has full range of motion. Neurovascular intact. Patient is 5 out of 5 strength in upper and lower extremities. NEUROLOGICAL: Cranial nerves II through XII grossly intact. Normal speech, normal gait. PSYCH: Normal mood, normal affect. SKIN: Warm, Dry, normal turgor, no rashes or lesions noted. Limitations: no limitations Course Vital Signs 06/22/19 06/22/19 09:43 13:07 Temperature 97.9 F Pulse Rate 84 83 Respiratory 18 16 Rate Blood Pressure 131/63 119/73 O2 Sat by Pulse 100 Oximetry Medical Decision Making - Medical Decision Making Patient is a 28-year-old female presenting with intermittent thoracic pain 6-7 weeks. Patient had cholecystectomy with Dr. Castaneda approximately 7 weeks ago and has been having intermittent thoracic pains. Patient states the pain does cause some nausea and today she had vomiting. Vital signs are stable, afebrile. Patient's exam is unremarkable. Lab work shows white count of 10.9, slightly elevated liver enzymes with AST at 105, ALT at 63, alk phos at 150. UA is within normal limits. Thoracic x-ray is normal, no acute findings. Ultrasound of the liver was obtained secondary to elevated LFTs. This shows a dilated common bile duct that is related to prior surgical intervention. No other acute findings. Patient is given fluids, Zofran, Toradol for symptom control. Discussed with patient that her pain could be referred from last postsurgical changes. It is recommended that patient follow up with Dr. Castaneda for further a ssessment. Patient is stable for discharge at this time. Return parameters were discussed with the patient she verbalized understanding. Case discussed with Dr. Barrios who agrees with this plan of care. - Lab Data Result diagrams: 06/22/19 10:39 06/22/19 10:39 Lab Results 06/22/19 06/22/19 06/22/19 Range/Units 10:39 10:39 11:11 WBC 10.9 H (3.8-10.6) k/uL RBC 4.62 (3.80-5.40) m/uL Hgb 13.7 (11.4-16.0) gm/dL Hct 40.5 (34.0-46.0) % MCV 87.7 (80.0-100.0) fL MCH 29.6 (25.0-35.0) pg MCHC 33.7 (31.0-37.0) g/dL RDW 13.5 (11.5-15.5) % Plt Count 235 (150-450) k/uL Neutrophils % 86 % Lymphocytes % 7 % Monocytes % 5 % Eosinophils % 1 % Basophils % 0 % Neutrophils # 9.3 H (1.3-7.7) k/uL Lymphocytes # 0.7 L (1.0-4.8) k/uL Monocytes # 0.6 (0-1.0) k/uL Eosinophils # 0.1 (0-0.7) k/uL Basophils # 0.1 (0-0.2) k/uL Sodium 142 (137-145) mmol/L Potassium 4.1 (3.5-5.1) mmol/L Chloride 108 H (98-107) mmol/L Carbon Dioxide 25 (22-30) mmol/L Anion Gap 9 mmol/L BUN 15 (7-17) mg/dL Creatinine 0.72 (0.52-1.04) mg/dL Est GFR (CKD-EPI)AfAm >90 (>60 ml/min/1.73 sqM) Est GFR (CKD-EPI)NonAf >90 (>60 ml/min/1.73 sqM) Glucose 93 (74-99) mg/dL Calcium 9.8 (8.4-10.2) mg/dL Total Bilirubin 1.3 (0.2-1.3) mg/dL AST 105 H (14-36) U/L ALT 63 H (9-52) U/L Alkaline Phosphatase 150 H (38-126) U/L Total Protein 7.6 (6.3-8.2) g/dL Albumin 4.5 (3.5-5.0) g/dL Amylase 71 (30-110) U/L Lipase 88 (23-300) U/L Urine Color Urine Appearance (Clear) Urine pH (5.0-8.0) Ur Specific Gillett (1.001-1.035) Urine Protein (Negative) Urine Glucose (UA) (Negative) Urine Ketones (Negative) Urine Blood (Negative) Urine Nitrite (Negative) Urine Bilirubin (Negative) Urine Urobilinogen (<2.0) mg/dL Ur Leukocyte Esterase (Negative) Urine RBC (0-5) /hpf Urine WBC (0-5) /hpf Ur Squamous Epith Cells (0-4) /hpf Amorphous Sediment (None) /hpf Urine Bacteria (None) /hpf Urine Mucus (None) /hpf Urine HCG, Qual Not Detected (Not Detectd) 06/22/19 Range/Units 11:11 WBC (3.8-10.6) k/uL RBC (3.80-5.40) m/uL Hgb (11.4-16.0) gm/dL Hct (34.0-46.0) % MCV (80.0-100.0) fL MCH (25.0-35.0) pg MCHC (31.0-37.0) g/dL RDW (11.5-15.5) % Plt Count (150-450) k/uL Neutrophils % % Lymphocytes % % Monocytes % % Eosinophils % % Basophils % % Neutrophils # (1.3-7.7) k/uL Lymphocytes # (1.0-4.8) k/uL Monocytes # (0-1.0) k/uL Eosinophils # (0-0.7) k/uL Basophils # (0-0.2) k/uL Sodium (137-145) mmol/L Potassium (3.5-5.1) mmol/L Chloride (98-107) mmol/L Carbon Dioxide (22-30) mmol/L Anion Gap mmol/L BUN (7-17) mg/dL Creatinine (0.52-1.04) mg/dL Est GFR (CKD-EPI)AfAm (>60 ml/min/1.73 sqM) Est GFR (CKD-EPI)NonAf (>60 ml/min/1.73 sqM) Glucose (74-99) mg/dL Calcium (8.4-10.2) mg/dL Total Bilirubin (0.2-1.3) mg/dL AST (14-36) U/L ALT (9-52) U/L Alkaline Phosphatase (38-126) U/L Total Protein (6.3-8.2) g/dL Albumin (3.5-5.0) g/dL Amylase (30-110) U/L Lipase (23-300) U/L Urine Color Yellow Urine Appearance Cloudy H (Clear) Urine pH 6.0 (5.0-8.0) Ur Specific Gillett 1.030 (1.001-1.035) Urine Protein 1+ H (Negative) Urine Glucose (UA) Negative (Negative) Urine Ketones Negative (Negative) Urine Blood Negative (Negative) Urine Nitrite Negative (Negative) Urine Bilirubin Negative (Negative) Urine Urobilinogen 2.0 (<2.0) mg/dL Ur Leukocyte Esterase Negative (Negative) Urine RBC 2 (0-5) /hpf Urine WBC 2 (0-5) /hpf Ur Squamous Epith Cells 4 (0-4) /hpf Amorphous Sediment Rare H (None) /hpf Urine Bacteria Rare H (None) /hpf Urine Mucus Few H (None) /hpf Urine HCG, Qual (Not Detectd) Disposition Clinical Impression: Thoracic back pain, History of cholecystectomy Disposition: HOME SELF-CARE Condition: Stable Instructions (If sedation given, give patient instructions): Back Pain (ED) Additional Instructions: Please return to the Emergency Department if symptoms worsen or any other concerns. Follow-up with Dr. Castaneda as discussed. Take Zofran as needed for nausea. Prescriptions: Ondansetron Odt [Zofran Odt] 4 mg PO Q8HR PRN #10 tab PRN Reason: Nausea Is patient prescribed a controlled substance at d/c from ED?: No Referrals: None,Stated [Primary Care Provider] - 1-2 days Berto Castaneda MD [Medical Doctor] - 1-2 days
[2019-06-22 11:23] LABS: ALT 63 U/L (9-52); AST 105 U/L (14-36); African American GFR (CKD) >90 (>60 ml/min/1.73 sqM); Albumin 4.5 g/dL (3.5-5.0); Alkaline Phosphatase 150 U/L (38-126); Amylase 71 U/L (30-110); Anion Gap 9 mmol/L; Blood Urea Nitrogen 15 mg/dL (7-17); Calcium 9.8 mg/dL (8.4-10.2); Carbon Dioxide 25 mmol/L (22-30); Chloride 108 mmol/L (98-107); Glucose 93 mg/dL (74-99); Potassium 4.1 mmol/L (3.5-5.1); Sodium 142 mmol/L (137-145); Total Bilirubin 1.3 mg/dL (0.2-1.3); Total Protein 7.6 g/dL (6.3-8.2)
[2019-06-22 11:35] LABS: Amorphous Sediment,Urine Rare /hpf; Appearance,Urine Cloudy (Clear); Bacteria,Urine Rare /hpf; Bilirubin,Urine Negative (Negative); Blood,Urine Negative (Negative); Color,Urine Yellow; Glucose,Urine (UA) Negative (Negative); Ketones,Urine Negative (Negative); Leukocyte Esterase,Urine Negative (Negative); Mucus,Urine Few /hpf; Nitrite,Urine Negative (Negative); Protein,Urine 1+ (Negative); RBC,Urine 2 /hpf (0-5); Squamous Epithelial Cell,Urine 4 /hpf (0-4)
--- NOTE | 2019-06-22 11:54 | XR ---
EXAMINATION TYPE: XR thoracic spine 2V DATE OF EXAM: 06/22/2019 CLINICAL HISTORY: pain TECHNIQUE: Frontal, lateral, and swimmer's view of thoracic spine are obtained. COMPARISON: None. FINDINGS: Thoracic spine show satisfactory alignment without evidence of acute fracture or dislocatio n. Vertebral body heights are preserved. Disc spaces are well preserved. Visualized ribs are unrem arkable. IMPRESSION: No acute fracture or dislocation is seen in the thoracic spine. ICD 10 NO FRACTURE, INIT IAL EVALUATION
--- NOTE | 2019-06-22 12:40 | US ---
EXAMINATION TYPE: US liver DATE OF EXAM: 06/22/2019 COMPARISON: NONE CLINICAL HISTORY: pain, elevated LFTs. Pt states pain s/p GB removed 6 weeks ago, elevated LFT's EXAM MEASUREMENTS: Liver Length: 17.9 cm CBD: 1.2 cm Right Kidney: 10.7 x 4.4 x 5.1 cm Pancreas: wnl Liver: Upper limits of normal for size, otherwise appeared wnl Gallbladder: Surgically absent Evidence for sonographic Yo's sign: No CBD: Dilated for post princess Right Kidney: wnl IMPRESSION: 1. Dilated common bile duct related prior surgical intervention.
[2019-06-22 13:08] VITALS: BP 119/73; PULSE 83; RESP 16
== END 2019-06-22 13:34 | disposition home or self-care (01) ==
LOC: EC 09:38
DX: M54.6 Pain in thoracic spine (principal); Z90.49 Acquired absence of other specified parts of digestive tract; R74.8 Abnormal levels of other serum enzymes; K83.8 Other specified diseases of biliary tract; R11.2 Nausea with vomiting, unspecified
CPT/HCPCS: 36415; 80053; 82150; 83690; 85025; 81001; 81025; 72070; 76705; 99284; 96374; 96375; 96361; J2405; J1885

== ENCOUNTER → 2019-07-04 | Outpatient (CLI) | payer MEDICAID ==
[2019-07-04 08:15] LABS: ALT 469 U/L (9-52); AST 293 U/L (14-36); African American GFR (CKD) >90 (>60 ml/min/1.73 sqM); Albumin 4.6 g/dL (3.5-5.0); Alkaline Phosphatase 312 U/L (38-126); Anion Gap 10 mmol/L; Blood Urea Nitrogen 11 mg/dL (7-17); Calcium 9.8 mg/dL (8.4-10.2); Carbon Dioxide 28 mmol/L (22-30); Chloride 107 mmol/L (98-107); Glucose 100 mg/dL (74-99); Potassium 3.9 mmol/L (3.5-5.1); Sodium 145 mmol/L (137-145); Total Bilirubin 2.6 mg/dL (0.2-1.3); Total Protein 7.9 g/dL (6.3-8.2)
--- NOTE | 2019-07-05 06:13 | MR ---
EXAMINATION TYPE: MR MRCP DATE OF EXAM: 07/04/2019 COMPARISON: Liver ultrasound June 22, 2019. HISTORY: Epigastric pain. History of cholecystectomy roughly 2 months ago with persistent pain and el evated liver enzymes rule out CBD stones. Standard multiplanar, multisequence MRI departmental protocol Multiplanar, multisequence images of the abdomen were acquired. Thin and thick slice MRCP imaging is performed and MRI scanner.. FINDINGS: Liver/gallbladder/pancreas/biliary system: Gallbladder not visualized consistent with history of chol ecystectomy. Pancreas is normal in size. No worrisome pancreatic mass or adjacent fluid collection. L iver is mildly enlarged. No worrisome solid or cystic intrahepatic mass identified. Correlating with ultrasound there is mild to moderate dilatation of the common bile duct measuring up to 15 mm near po rta hepatis with gradual tapering towards the duodenal ampulla. No definitive round filling defect to suggest CBD stone. No suspicious intrahepatic biliary dilatation. Mild wall irregularity is noted. P ancreatic duct is felt within normal limits. Other: Lung bases are grossly clear. Spleen and both adrenal glands are normal in size. Nonspecific s ubcentimeter slightly T2 hyperintense lesion left kidney upper to midpole level laterally coronal won ge 22 favored benign such as proteinaceous cyst. No suspicious bowel dilatation. No abdominal ascites . Visualized osseous structures show slight scoliotic curvature in the lumbar spine. IMPRESSION: Confirmation of mild to moderate extrahepatic biliary dilatation without hepatic biliary dilatation. No obstructing CBD stones. No intrahepatic biliary dilatation. Mild wall irregularity sug gest possible cholangitis. Mild hepatomegaly noted.
== END | disposition home or self-care (01) ==
LOC: RADMRIMAIN 06:41
PROVIDERS: ATTEND Internal Medicine Gastroenterology
DX: R16.0 Hepatomegaly, not elsewhere classified (principal); K83.8 Other specified diseases of biliary tract; R94.5 Abnormal results of liver function studies
CPT/HCPCS: 36415; 74181; 80053

== ENCOUNTER 2019-07-07 10:38 | Day surgery (SDC) | payer MEDICAID ==
[2019-07-06 11:59] VITALS: BMI 21.4
[~2019-07-07 10:38] MED LIST changes: -HEPARIN SODIUM,PORCINE 5,000 UNIT/ML 1 ML VIAL SQ ONE; -HYDROmorphone 0.5 MG/0.5 ML SYRINGE IVP PRN; +INDOMETHACIN 50MG SUPPOSITORY RECTAL ONE; +LACTATED RINGERS 1,000 ML IV NR; -LACTATED RINGERS 1,000 ML IV SCH; +LEVOFLOXACIN 500MG-D5W PMX 500 MG in DEXTROSE/WATER 1 100ML.BAG IVPB ONE; +LIDOCAINE 1% 20 ML VIAL (10MG/ML) FOR IV START INTRADERMA PRN; +ONDANSETRON 4 MG/2 ML VIAL IVP ONE
[2019-07-07] MEDS: LACTATED RINGERS 1,000 ML IV SCH ×2 (11:45→13:14)
[2019-07-07 11:53] VITALS: TEMP 97.4
[2019-07-07 12:10] LABS: Basophils # (A) 0.1 k/uL (0-0.2); Basophils % (A) 2 %; Eosinophils # (A) 0.1 k/uL (0-0.7); Eosinophils % (A) 2 %; HCT 44.8 % (34.0-46.0); Lymphocytes # (A) 1.1 k/uL (1.0-4.8); Lymphocytes % (A) 20 %; MCH 30.8 pg (25.0-35.0); MCHC 33.5 g/dL (31.0-37.0); MCV 92.1 fL (80.0-100.0); Mean Platelet Volume 7.9; Monocytes # (A) 0.3 k/uL (0-1.0); Monocytes % (A) 5 %; Neutrophils % (A) 70 %; Platelet Count 226 k/uL (150-450); RBC 4.86 m/uL (3.80-5.40); RDW 14.4 % (11.5-15.5); WBC 5.7 k/uL (3.8-10.6)
[2019-07-07 12:13] LABS: ALT 790 U/L (9-52); AST 494 U/L (14-36); African American GFR (CKD) >90 (>60 ml/min/1.73 sqM); Albumin 4.8 g/dL (3.5-5.0); Alkaline Phosphatase 427 U/L (38-126); Anion Gap 13 mmol/L; Blood Urea Nitrogen 15 mg/dL (7-17); Carbon Dioxide 23 mmol/L (22-30); Chloride 107 mmol/L (98-107); Glucose 85 mg/dL (74-99); Non-African American GFR(CKD) >90 (>60 ml/min/1.73 sqM); Potassium 4.1 mmol/L (3.5-5.1); Sodium 143 mmol/L (137-145); Total Bilirubin 2.8 mg/dL (0.2-1.3); Total Protein 8.5 g/dL (6.3-8.2)
[2019-07-07 12:16] LABS: INR 0.9 (<1.2); Partial Thromboplastin Time 25.2 sec (22.0-30.0); Prothrombin Time 9.5 sec (9.0-12.0)
[2019-07-07] MEDS ORDERED: PROPOFOL 10 MG/ML 20 ML VIAL IV ONE (13:16)
[2019-07-07] MEDS ORDERED: MIDAZOLAM 2 MG/2 ML VIAL ONE (13:16)
[2019-07-07] MEDS ORDERED: GLYCOPYRROLATE 0.2 MG/ML 2 ML VIAL ONE (13:16)
[2019-07-07] MEDS ORDERED: LIDOCAINE 1% INJ 10MG/ML (20 ML MDV) ONE (13:16)
[2019-07-07] MEDS ORDERED: IOPAMIDOL-300 50ML BTL MISCELLANE ONE (13:45)
[2019-07-07 14:40] VITALS: RESP 18
--- NOTE | 2019-07-07 14:47 | P.PCN ---
Date of Procedure: 07/07/19 Procedure(s) Performed: Brief history: Patient is a 8 year-old pleasant lady scheduled for an ERCP as part of evaluation of abdominal pain and elevated serum transaminases for the last 2 days' duration. She underwent gallbladder surgery [address] Oliveira and since then she is been having intermittent episodes of severe epigastric pain radiating to the back. She has these episodes at least once a week lasting for a few hours and resolved. Recent MRCP was negative for CBD stones but she was noted to have dilated intra-and extra hepatic delivery system. She had an attack of pain 2 days ago and labs revealed elevated bilirubin of 2.9 with AST and AST in the range of 300-[address] retained common bile duct stone and hence she is scheduled for an ERCP for possible choledocholithiasis Procedure performed: ERCP with biliary sphincterotomy and balloon stone extraction Preoperative diagnoses: Intermittent episodes of epigastric pain/elevated LFTs/dilated ducts on recent MRCP IV sedation per anesthesia: Procedure: After informed consent was obtained from the patient and after the risks benefits and complications including bleeding perforation and pancreatitis explained in detail the patient was brought into the endoscopy unit. The patient was placed in prone position and IV conscious sedation was administered by anesthesia under continuous monitoring. The Olympus side-viewing duodenoscope was then inserted into the mouth and esophagus intubated without any difficulty. The scope was gradually advanced into the stomach and duodenum. The major papilla was identified without any difficulty. Tapered-tip catheter was used for cannulation Initial cannulation resulted in a presentation the pancreatic duct. Following this despite multiple attempts using the guidewire technique the pancreatic duct was cannulated. At this time autotome with the guidewire technique was used and CBD was cannulated with some difficulty. Upon injection of the dye the common bile duct appeared dilated with a small filling defect noted. There was no intrahepatic bili dilation noted. At this time a biliary sphincterotomy was performed at 12 o'clock position and was extended to 1 cm. Following this a 8-11 mm balloon was passed over the guidewire into the proximal CBD and gently withdrawn after inflated and a small stone was seen exiting the ampulla which measured about 5 mm in size. I repeated this maneuver 2 more times and no other stones were seen exiting the ampulla. There was small amount of oozing noted at the site of the sphincterotomy site which subsequently subsided. Patient tolerated the procedure well Impression: 1. Normal-appearing pancreatic duct 2. Dilated common bile duct measuring 2 cm in diameter with a small filling defects status post biliary sphincterotomy with balloon stone extraction as described above Recommendations: The findings of this examination were discussed with the patient as well as a family. She'll be observed in the hospital for 2 hours for recovery. If she is eating well she can be discharged home today with outpat ient follow-up in a week.
[2019-07-07 15:40] VITALS: BP 115/64; PULSE 55
--- NOTE | 2019-07-07 16:34 | FL ---
EXAMINATION TYPE: FL ERCP DATE OF EXAM: 07/07/2019 FLUOROSCOPY Fluoroscopy time of 2 minutes 50 seconds was used during ERCP and stone removal. 1 image/s document/ s the procedure.
== END 2019-07-07 16:06 | disposition home or self-care (01) ==
LOC: ORWHC2ENDO 10:38
PROVIDERS: ATTEND Internal Medicine Gastroenterology
DX: Z88.6 Allergy status to analgesic agent (principal); K83.8 Other specified diseases of biliary tract; R94.5 Abnormal results of liver function studies; Z90.49 Acquired absence of other specified parts of digestive tract
CPT/HCPCS: 81025; 80053; 85025; 85610; 85730; 74330; 43264; 43262; J2250; J1100; J2405; J1956; J2001; J2704; Q9967; C1769

== ENCOUNTER 2019-07-08 02:56 | Inpatient (IN) | payer MEDICAID ==
[2019-07-08] MEDS ORDERED: SODIUM CHLORIDE 0.9% 1,000 ML IV STA (03:10)
[2019-07-08] MEDS ORDERED: HYDROmorphone 0.5 MG/0.5 ML SYRINGE IVP STA (03:10)
[2019-07-08] MEDS ORDERED: KETOROLAC 30 MG/ML 1 ML VIAL IVP STA (03:10)
--- NOTE | 2019-07-08 03:14 | ED ---
Abdominal Pain HPI - General Chief Complaint: Abdominal Pain Stated Complaint: Abd/Back Pain Time Seen by Provider: 07/08/19 03:05 Source: patient Mode of arrival: ambulatory Limitations: no limitations - History of Present Illness Initial Comments: 28-year-old female patient presents to the emergency department today for evaluation of upper abdominal pain, nausea, and vomiting. Patient states that she woke this morning with symptoms. States the pain in her abdomen is radiating through to her back. Patient did have an ERCP yesterday afternoon for a stone in her common bile duct. Denies any hematemesis, hematochezia, or melena. Denies fever or chills. Denies taking any medication for her symptoms. Denies any hematuria, dysuria, urinary frequency, urinary urgency. Patient denies any recent rash, shortness breath, chest pain, diarrhea, constipation, numbness, tingling, dizziness, weakness, headache, visual changes, or any other complaints. - Related Data Home Medications Medication Instructions Recorded Confirmed Acetaminophen [Tylenol] 500 mg PO Q4-6H PRN 07/06/19 07/06/19 Allergies Allergy/AdvReac Type Severity Reaction Status Date / Time No Known Allergies Allergy Verified 07/08/19 03:04 Review of Systems ROS Statement: Those systems with pertinent positive or pertinent negative responses have been documented in the HPI. ROS Other: All systems not noted in ROS Statement are negative. Past Medical History Past Medical History: Liver Disease Additional Past Medical History / Comment(s): elevated liver enzymes and nausea and vomiting History of Any Multi-Drug Resistant Organisms: None Reported Past Surgical History: Cholecystectomy Past Anesthesia/Blood Transfusion Reactions: No Reported Reaction Additional Past Anesthesia/Blood Transfusion Reaction / Comment(s): no hx blood transfusion Past Psychological History: No Psychological Hx Reported Smoking Status: Never smoker Past Alcohol Use History: None Reported Past Drug Use History: None Reported - Past Family History Mother Family Medical History: No Reported History Additional Family Medical History / Comment(s): hyperemesis Father Family Medical History: No Reported History General Exam Limitations: no limitations General appearance: alert, in no apparent distress, other (This is a well- developed, well-nourished adult female patient in mild distress related to pain. Vital signs upon presentation are temperature 98.7F, pulse 51, respirations 16, blood pressure 119/70, pulse ox 98% on room air.) Eye exam: Present: normal appearance, PERRL, EOMI. Absent: scleral icterus, conjunctival injection, periorbital swelling ENT exam: Present: normal exam, normal oropharynx, mucous membranes moist Respiratory exam: Present: normal lung sounds bilaterally. Absent: respiratory distress, wheezes, rales, rhonchi, stridor Cardiovascular Exam: Present: regular rate, normal rhythm, normal heart sounds. Absent: systolic murmur, diastolic murmur, rubs, gallop, clicks GI/Abdominal exam: Present: soft, tenderness (Midepigastric tenderness), normal bowel sounds. Absent: distended, guarding, rebound, rigid Back exam: Present: normal inspection. Absent: CVA tenderness (R), CVA tenderness (L) Neurological exam: Present: alert, oriented X3, CN II-XII intact Psychiatric exam: Present: normal affect, normal mood Skin exam: Present: warm, dry, intact, normal color. Absent: rash Course Vital Signs 07/08/19 03:02 Temperature 98.7 F Pulse Rate 51 L Respiratory 16 Rate Blood Pressure 119/70 O2 Sat by Pulse 98 Oximetry Medical Decision Making - Medical Decision Making 28-year-old female patient presents to the emergency department today for evaluation of midepigastric pain radiating through to her back. She is also experiencing nausea and vomiting. Physical examination does reveal midepigastric tenderness. Labs reviewed and showed elevated lipase at 11,000. Patient symptoms, history, and lab findings consistent with ERCP. She'll be admitted to [facility], with Dr. Rodriguez consulted. - Lab Data Result diagrams: 07/08/19 03:20 07/08/19 03:20 Lab Results 07/08/19 07/08/19 Range/Units 03:20 03:20 WBC 9.3 (3.8-10.6) k/uL RBC 4.79 (3.80-5.40) m/uL Hgb 14.3 (11.4-16.0) gm/dL Hct 43.1 (34.0-46.0) % MCV 90.0 (80.0-100.0) fL MCH 29.9 (25.0-35.0) pg MCHC 33.2 (31.0-37.0) g/dL RDW 14.2 (11.5-15.5) % Plt Count 274 (150-450) k/uL Neutrophils % 72 % Lymphocytes % 19 % Monocytes % 5 % Eosinophils % 1 % Basophils % 2 % Neutrophils # 6.7 (1.3-7.7) k/uL Lymphocytes # 1.8 (1.0-4.8) k/uL Monocytes # 0.5 (0-1.0) k/uL Eosinophils # 0.1 (0-0.7) k/uL Basophils # 0.2 (0-0.2) k/uL Manual Slide Review Performed Sodium 139 (137-145) mmol/L Potassium 4.5 (3.5-5.1) mmol/L Chloride 106 (98-107) mmol/L Carbon Dioxide 22 (22-30) mmol/L Anion Gap 11 mmol/L BUN 11 (7-17) mg/dL Creatinine 0.82 (0.52-1.04) mg/dL Est GFR (CKD-EPI)AfAm >90 (>60 ml/min/1.73 sqM) Est GFR (CKD-EPI)NonAf >90 (>60 ml/min/1.73 sqM) Glucose 118 H (74-99) mg/dL Calcium 10.0 (8.4-10.2) mg/dL Total Bilirubin 2.1 H (0.2-1.3) mg/dL AST 490 H (14-36) U/L ALT 836 H (9-52) U/L Alkaline Phosphatase 372 H (38-126) U/L Total Protein 7.7 (6.3-8.2) g/dL Albumin 4.4 (3.5-5.0) g/dL Amylase 880 H* (30-110) U/L Lipase 59106 H (23-300) U/L - Radiology Data Radiology results: report reviewed, image reviewed KUB x-ray obtained. Report reviewed in its entirety. Impression by Dr. Kay shows nonacute abdomen Disposition Clinical Impression: Pancreatitis Disposition: ADMITTED IP TO THIS [facility] Condition: Serious Referrals: None,Stated [Primary Care Provider] - 1-2 days Decision to Admit Reason: Admit from EC Decision Date: 07/08/19 Decision Time: 04:01
[2019-07-08 03:30] LABS: Basophils # (A) 0.2 k/uL (0-0.2); Basophils % (A) 2 %; Eosinophils # (A) 0.1 k/uL (0-0.7); Eosinophils % (A) 1 %; HCT 43.1 % (34.0-46.0); HGB 14.3 gm/dL (11.4-16.0); Lymphocytes # (A) 1.8 k/uL (1.0-4.8); Lymphocytes % (A) 19 %; MCH 29.9 pg (25.0-35.0); MCHC 33.2 g/dL (31.0-37.0); Mean Platelet Volume 7.9; Monocytes # (A) 0.5 k/uL (0-1.0); Monocytes % (A) 5 %; Neutrophils # (A) 6.7 k/uL (1.3-7.7); Neutrophils % (A) 72 %; Platelet Count 274 k/uL (150-450); RBC 4.79 m/uL (3.80-5.40); RDW 14.2 % (11.5-15.5); WBC 9.3 k/uL (3.8-10.6)
[2019-07-08 03:38] LABS: ALT 836 U/L (9-52); AST 490 U/L (14-36); African American GFR (CKD) >90 (>60 ml/min/1.73 sqM); Albumin 4.4 g/dL (3.5-5.0); Alkaline Phosphatase 372 U/L (38-126); Anion Gap 11 mmol/L; Blood Urea Nitrogen 11 mg/dL (7-17); Carbon Dioxide 22 mmol/L (22-30); Chloride 106 mmol/L (98-107); Glucose 118 mg/dL (74-99); Non-African American GFR(CKD) >90 (>60 ml/min/1.73 sqM); Potassium 4.5 mmol/L (3.5-5.1); Sodium 139 mmol/L (137-145); Total Bilirubin 2.1 mg/dL (0.2-1.3); Total Protein 7.7 g/dL (6.3-8.2)
[2019-07-08 03:45] LABS: Amylase 880 U/L (30-110)
--- NOTE | 2019-07-08 03:49 | XR ---
EXAMINATION TYPE: XR KUB DATE OF EXAM: 07/08/2019 COMPARISON: NONE HISTORY: Abdominal pain TECHNIQUE: 2 views FINDINGS: 2 views upright were obtained and show a normal bowel gas pattern. There is no sign of inte stinal obstruction or pneumoperitoneum. There are clips from cholecystectomy. There is no evidence of a mass. There are no pathologic calcifications over the kidneys. Lung bases are clear. IMPRESSION: Nonacute abdomen.
[2019-07-08] MEDS ORDERED: NALOXONE 0.4 MG/ML 1 ML VIAL IV PRN (03:57)
[2019-07-08] MEDS ORDERED: SODIUM CHLORIDE 0.9% 1,000 ML IV ONE (04:02)
[2019-07-08] MEDS: SODIUM CHLORIDE 0.9% 1,000 ML IV SCH ×4 (04:19→21:04)
[2019-07-08 05:10] VITALS: BMI 21.8
[2019-07-08] MEDS: HYDROmorphone 0.5 MG/0.5 ML SYRINGE IVP PRN ×5 (06:34→19:46)
[2019-07-08] MEDS: ONDANSETRON 4 MG/2 ML VIAL IVP PRN ×3 (06:34→23:25)
[2019-07-08 07:11] LABS: Appearance,Urine Cloudy (Clear); Bacteria,Urine Rare /hpf; Bilirubin,Urine Negative (Negative); Blood,Urine Moderate (Negative); Color,Urine Yellow; Glucose,Urine (UA) Negative (Negative); Hyaline Casts,Urine 2 /lpf (0-2); Ketones,Urine 2+ (Negative); Leukocyte Esterase,Urine Moderate (Negative); Mucus,Urine Many /hpf; Nitrite,Urine Negative (Negative); PH, Urine 5.5 (5.0-8.0); Protein,Urine Trace (Negative); RBC,Urine 2 /hpf (0-5); Specific Gravity,Urine 1.018 (1.001-1.035); Squamous Epithelial Cell,Urine 31 /hpf (0-4); Urobilinogen,Urine <2.0 mg/dL (<2.0)
--- NOTE | 2019-07-08 07:47 | P.HPIM ---
History of Present Illness H&P Date: 07/08/19 The patient is a 28 yo F with a hx of chronic cholecystitis s/p cholecystectomy 05/05/19, with subsequent ERCP on 07/07/19. The patient reports that around 2 am this morning, she developed an epigastric abdominal pain w/ radiation to the back with associated nausea and vomiting. The patient subsequently came to the ED where she underwent an extensive evaluation. [place] [address], amylase of 880, AST 490, ALT 836, and alk phos 372. The patient endorsed 3/10 pain at the time of the interview and notes her nausea is significantly improved. She denied fever, chills, chest pain, SOB, diarrhea. She was admitted to the medicine service for further management of pancreatitis. Review of Systems Pertinent positives and negatives as discussed in HPI, a complete review of systems was performed and all other systems are negative. Past Medical History Past Medical History: Liver Disease Additional Past Medical History / Comment(s): cholecystitis, pancreatitis History of Any Multi-Drug Resistant Organisms: None Reported Past Surgical History: Cholecystectomy Additional Past Surgical History / Comment(s): princess 04/2019, ERCP 06/2019 Past Anesthesia/Blood Transfusion Reactions: No Reported Reaction Additional Past Anesthesia/Blood Transfusion Reaction / Comment(s): no hx blood transfusion Past Psychological History: No Psychological Hx Reported Additional Psychological History / Comment(s): ADD in 3rd grade, resolved per pt Smoking Status: Never smoker Past Alcohol Use History: None Reported Past Drug Use History: None Reported - Past Family History Mother Family Medical History: No Reported History Additional Family Medical History / Comment(s): hyperemesis Father Family Medical History: No Reported History Medications and Allergies Home Medications Medication Instructions Recorded Confirmed Type Acetaminophen [Tylenol] 1,000 mg PO Q4-6H PRN 07/06/19 07/08/19 History Ibuprofen 600 mg PO Q8HR PRN 07/08/19 07/08/19 History Allergies Allergy/AdvReac Type Severity Reaction Status Date / Time No Known Allergies Allergy Verified 07/08/19 03:04 Physical Exam Vitals: Vital Signs Temp Pulse Resp BP Pulse Ox 07/08/19 04:38 98.3 F 74 18 127/67 97 07/08/19 04:03 98.6 F 77 18 121/71 98 07/08/19 03:02 98.7 F 51 L 16 119/70 98 Intake and Output 07/07/19 07/08/19 07/08/19 22:59 06:59 14:59 Output Total 250 Balance -250 Output: Urine 250 Other: Weight 62.142 kg General: non toxic, no distress, appears at stated age, normal weight Derm: no unusual rashes/lesions no unusual ecchymoses, warm, dry Head: atraumatic, normocephalic, symmetric Eyes: EOMI, no lid lag, anicteric sclera, pupils equal round reactive to light ENT: Nose and ears atraumatic, no thrush, no pharyngeal erythema Neck: No thyromegaly, no cervical lymphadenopathy, trachea midline, supple Mouth: no lip lesion, mucus membranes moist Cardiovascular: S1S2 reg, no murmur, positive posterior tibial pulse bilateral, no edema, capillary refill less than 2 seconds Lungs: CTA bilateral, no rhonchi, no rales , no accessory muscle use Abdominal: soft, epigastric tenderness to palpation, mild guarding, no pete reciable organomegaly Ext: no gross muscle atrophy, muscle strength 5 out of 5 in all 4 extremities grossly, no contractures, Neuro: CN II-XI grossly intact, light touch intact all 4 extremities, finger to nose within normal limits, Psych: Alert, oriented, appropriate affect Results CBC & Chem 7: 07/08/19 03:20 07/08/19 03:20 Labs: Abnormal Lab Results - Last 24 Hours (Table) 07/08/19 07/08/19 Range/Units 03:20 06:30 Glucose 118 H (74-99) mg/dL Total Bilirubin 2.1 H (0.2-1.3) mg/dL AST 490 H (14-36) U/L ALT 836 H (9-52) U/L Alkaline Phosphatase 372 H (38-126) U/L Amylase 880 H* (30-110) U/L Lipase 28964 H (23-300) U/L Urine Appearance Cloudy H (Clear) Urine Protein Trace H (Negative) Urine Blood Moderate H (Negative) Ur Leukocyte Esterase Moderate H (Negative) Urine WBC 9 H (0-5) /hpf Ur Squamous Epith Cells 31 H (0-4) /hpf Urine Bacteria Rare H (None) /hpf Urine Mucus Many H (None) /hpf Thrombosis Risk Factor Assmnt - Choose All That Apply Any of the Below Risk Factors Present?: No Other Risk Factors: No Other congenital or acquired thrombophilia - If yes, enter type in comment: No Thrombosis Risk Factor Assessment Level: Very Low Risk Assessment and Plan Plan: Acute pancreatitis secondary to ERCP -GI consulted -C/w pain control -NPO for now -Zofran prn -C/w IVFs -Monitor LFTs DVT prophylaxis -Heparin The patient is admitted with an anticipated greater than 2 midnight stay for evaluation of acute pancreatitis CODE STATUS:Full Code Discussed with: Patient Anticipated discharge date: 2-[address]: Home A total of 35 minutes was spent on the care of this complex patient more than 50% of the time was spent in counseling and care coordination.
[2019-07-08] MEDS: KETOROLAC 30 MG/ML 1 ML VIAL IVP PRN ×3 (11:06→23:25)
--- NOTE | 2019-07-08 16:59 | CONS ---
CONSULTATION DATE OF DICTATION: 07/08/2019 REASON FOR CONSULTATION: Acute post-ERCP pancreatitis. HISTORY OF PRESENT ILLNESS: The patient is a 28-year-old pleasant white female who underwent an ERCP yesterday for intermittent episodes of severe epigastric and right upper quadrant abdominal pain radiating to the back. She underwent cholecystectomy for symptomatic gallstones about 3 months ago. Since then she has been having these symptoms. She had an MRCP done on an outpatient basis that showed dilated common bile duct, but no obvious filling defect was noted. However, during she had labs done and bilirubin was elevated up to 2.9 with ALT and AST in the 200 and 400 range. Because of clinical suspicion for CBD stone, she underwent an ERCP on an outpatient basis yesterday. The ERCP revealed a dilated common bile duct and biliary sphincterotomy, and balloon extraction was performed. Following the procedure, the patient had some discomfort, but she was discharged home. At 3 this morning she started having severe epigastric pain with nausea and vomiting and came into the emergency room and was noted to have amylase at 880 and lipase at 11,209 with elevated serum transaminases and she was admitted with acute pancreatitis. She has been receiving Dilaudid every 3 hours. She is feeling somewhat better. She remains n.p.o. No fever, chills, night sweats. No further episodes of nausea and vomiting since being in the hospital. PAST MEDICAL HISTORY: Unremarkable. PAST SURGICAL HISTORY: Gallbladder surgery 2 months ago and ERCP yesterday. MEDICATIONS AT HOME: None. ALLERGIES: NO KNOWN DRUG ALLERGIES. SOCIAL HISTORY: No smoking. No alcohol use. FAMILY HISTORY: Unremarkable. REVIEW OF SYSTEMS: CARDIOPULMONARY: No chest pain or shortness of breath. GENITOURINARY: No dysuria or hematuria. MUSCULOSKELETAL: Unremarkable. SKIN: Unremarkable. ENDOCRINE: Unremarkable. PSYCHIATRIC: Unremarkable. NEUROLOGY: Unremarkable. ENT/VISION: Unremarkable. CONSTITUTIONAL: No recent weight loss. No fever, chills, night sweats. HEMATOLOGY: Unremarkable. PHYSICAL EXAMINATION: She appears comfortable, in no apparent distress. Vital signs are stable. Blood pressure 112/69, pulse rate 62, temperature 98.2. HEENT examination unremarkable. Conjunctivae pink. Sclerae anicteric. Oral cavity no lesions. NECK: No JVD or lymph node enlargement. CHEST: Clear to auscultation. HEART: Regular rate and rhythm. ABDOMEN: Soft. Mild tenderness in the epigastric area. The rest of the abdomen was benign. There was minimal tenderness in the right lower quadrant area. EXTREMITIES: No pedal edema. SKIN: No rashes. NEUROLOGIC: She is alert and oriented x3. No focal deficits. LABS: Labs done early this morning showed WBC 9.3, hemoglobin 14.3, platelets normal. T- bilirubin 2.1. AST and ALT 419 and 836, respectively, alkaline phosphatase 372. Amylase 880 and lipase 11,209. IMPRESSION: 1. Acute pancreatitis, endoscopic retrograde cholangiopancreatography. 2. Intermittent episodes of epigastric pain related to choledocholithiasis, status post endoscopic retrograde cholangiopancreatography with common bile duct stone removal yesterday. RECOMMENDATIONS: 1. Aggressive IV hydration. 2. Pain medications as needed. 3. Antiemetics as needed. 4. Okay for ice chips. 5. Repeat labs in the morning. We will follow her closely during her hospital stay. Thank you for this consultation. MMODL / IJN: [id number] /
[2019-07-09] MEDS: HYDROmorphone 0.5 MG/0.5 ML SYRINGE IVP PRN (01:30)
[2019-07-09] MEDS: SODIUM CHLORIDE 0.9% 1,000 ML IV SCH ×5 (04:22→20:30)
[2019-07-09 07:59] LABS: Basophils % (A) 0 %; Eosinophils # (A) 0.1 k/uL (0-0.7); Eosinophils % (A) 2 %; HCT 36.2 % (34.0-46.0); HGB 12.3 gm/dL (11.4-16.0); Lymphocytes # (A) 1.1 k/uL (1.0-4.8); Lymphocytes % (A) 17 %; MCHC 33.9 g/dL (31.0-37.0); MCV 91.7 fL (80.0-100.0); Monocytes # (A) 0.3 k/uL (0-1.0); Monocytes % (A) 6 %; Neutrophils # (A) 4.5 k/uL (1.3-7.7); Neutrophils % (A) 74 %; Platelet Count 190 k/uL (150-450); RBC 3.95 m/uL (3.80-5.40); RDW 14.2 % (11.5-15.5); WBC 6.1 k/uL (3.8-10.6)
[2019-07-09] MEDS: ONDANSETRON 4 MG/2 ML VIAL IVP PRN (08:10)
[2019-07-09 08:13] LABS: African American GFR (CKD) >90 (>60 ml/min/1.73 sqM); Albumin 3.3 g/dL (3.5-5.0); Anion Gap 8 mmol/L; Blood Urea Nitrogen 7 mg/dL (7-17); Calcium 8.8 mg/dL (8.4-10.2); Carbon Dioxide 24 mmol/L (22-30); Chloride 107 mmol/L (98-107); Non-African American GFR(CKD) >90 (>60 ml/min/1.73 sqM); Sodium 139 mmol/L (137-145); Total Bilirubin 1.6 mg/dL (0.2-1.3); Total Protein 5.9 g/dL (6.3-8.2)
[2019-07-09 08:45] LABS: ALT 618 U/L (9-52); AST 300 U/L (14-36); Alkaline Phosphatase 235 U/L (38-126); Glucose 66 mg/dL (74-99); Potassium 3.9 mmol/L (3.5-5.1)
[2019-07-09 09:15] LABS: Amylase 862 U/L (30-110)
--- NOTE | 2019-07-09 11:58 | PN ---
PROGRESS NOTE DATE OF SERVICE: 07/09/2019 Patient is a 28-year-old pleasant white female admitted to the hospital with post-ERCP pancreatitis. HISTORY OF PRESENT ILLNESS: Severe abdominal pain 12 hours after the ERCP which was done for a retained common bile duct stone. Patient is doing better today. She still has epigastric pain. Has some nausea, vomiting but gradually improving. PHYSICAL EXAMINATION: She appears comfortable, in no apparent distress. VITAL SIGNS: Stable, blood pressure is 114/58, pulse rate 54, temperature 97.8. HEENT: Examination unremarkable. Conjunctivae are pink. Sclerae nonicteric. Oral cavity no lesions. NECK: No JVD enlargement. CHEST: Clear to auscultation. HEART: Regular rate and rhythm. ABDOMEN: Soft. Bowel sounds are positive. Mild tenderness in the epigastric area. EXTREMITIES: No pedal edema. SKIN: No rashes. NEURO: Alert and oriented x3. No focal deficits. LABS: WBC 6.1, hemoglobin 12.3, platelets normal. T-bilirubin is down to 1.6. AST and ALT are 300 and 618 respectively. Alkaline phosphatase is 235. Amylase is 862 and lipase is 5616. IMPRESSION: 1. Post ERCP pancreatitis, gradually improving. 2. Intermittent episodes of epigastric pain for the last 3 months duration since gallbladder surgery in April of 2019, status post ERCP with biliary sphincterotomy and balloon stone extraction 2 days ago. RECOMMENDATIONS: 1. Start her on a clear liquid diet. 2. Repeat labs in the morning. 3. Pain medications as needed. Thank you for this consultation. MMODL / IJN: [id number] /
--- NOTE | 2019-07-09 17:02 | P.PN ---
Subjective Progress Note Date: 07/09/19 Patient seen and examined at bedside, reports some nausea and rates her abdominal pain about a 6, present. She denies chest pain or shortness of breath and lipase is down to 5616 from 73781. AST and FTD187/618, total bili 1.6. No acute events overnight Objective - Vital Signs Vital signs: Vital Signs Temp 97.5 F L 07/09/19 14:44 Pulse 79 07/09/19 14:44 Resp 18 07/09/19 14:44 BP 115/69 07/09/19 14:44 Pulse Ox 96 07/09/19 14:44 Intake & Output 07/08/19 07/09/19 07/09/19 18:59 06:59 18:59 Intake Total 2000 Output Total 300 900 Balance -300 -900 1999 Intake: Intake, IV Titration 1600 Amount Sodium Chloride 0.9% 1, 1600 000 ml @ 200 mls/hr IV . Q5H [facility] Rx#:[id number] Oral 400 Output: Urine 300 900 Other: Voiding Method Toilet # Voids 1 3 - Exam Constitutional: No acute distress, conversant, pleasant Eyes: Anicteric sclerae, moist conjunctiva, no lid-lag, PERRLA ENMT: NC/AT,Oropharynx clear, no erythema, exudates Neck:Supple, FROM, no masses, or JVD, No carotid bruits; No thyromegaly Lungs: Clear to auscultation, Clear to percussion, Normal respiratory effort, no accessory muscle use Cardiovascular: Heart regular in rate and rhythm, No murmurs, gallops, or rubs no peripheral edema Abdominal: Mildly TTP in epigastrium, nom distended, no guarding, no rebound or rigidity, Normoactive bowel sounds No hepatomegaly, No splenomegaly, No palpable mass No abdominal wall hernia noted Skin: Normal temperature, tone, texture, turgor, No induration No subcutaneous nodules, No rash, lesions, No ulcers Extremities:No digital cyanosis No clubbing, Pedal pulses intact and symmetrical Radial pulses intact and symmetrical Normal gait and station, No calf tenderness Psychiatric: Alert and oriented to person, place and time, Appropriate affect Intact judgement Neuro: Muscles Strength 5/5 in all 4 extremities, Sensation to light touch grossly present throughout, Cranial nerves II-XII grossly intact. No focal sensory deficits - Labs CBC & Chem 7: 11/23/19 07:20 07/09/19 07:20 Labs: Abnormal Lab Results - Last 24 Hours (Table) 07/09/19 Range/Units 07:20 Glucose 66 L (74-99) mg/dL Total Bilirubin 1.6 H (0.2-1.3) mg/dL AST 300 H (14-36) U/L ALT 618 H (9-52) U/L Alkaline Phosphatase 235 H (38-126) U/L Total Protein 5.9 L (6.3-8.2) g/dL Albumin 3.3 L (3.5-5.0) g/dL Amylase 862 H* (30-110) U/L Lipase 5616 H (23-300) U/L Assessment and Plan Assessment: Acute pancreatitis * Secondary to ERCP with biliary sphincterotomy and balloon stone extraction procedure * Continue current management with IV fluids, IV antiemetics and IV Dilaudid * Lipase trending down to 5616 from [id number] * Patient being seen by GI appreciated recommendations * Patient initiated on clear liquid diet Transaminitis * Post ERCP with biliary sphincterotomy and balloon stone extraction Hyperbilirubinemia * Post ERCP with biliary sphincterotomy and balloon stone extraction Disposition * Continue current management of pancreatitis * Anticipated discharge 1-2 days
[2019-07-09] MEDS: KETOROLAC 30 MG/ML 1 ML VIAL IVP PRN (20:26)
[2019-07-10] MEDS: SODIUM CHLORIDE 0.9% 1,000 ML IV SCH ×5 (06:25→23:09)
[2019-07-10 08:03] LABS: Basophils % (A) 1 %; Eosinophils # (A) 0.2 k/uL (0-0.7); Eosinophils % (A) 3 %; HCT 38.5 % (34.0-46.0); HGB 12.8 gm/dL (11.4-16.0); Lymphocytes % (A) 15 %; MCH 30.2 pg (25.0-35.0); MCHC 33.2 g/dL (31.0-37.0); MCV 90.9 fL (80.0-100.0); Mean Platelet Volume 6.9; Monocytes # (A) 0.4 k/uL (0-1.0); Monocytes % (A) 6 %; Neutrophils # (A) 5.1 k/uL (1.3-7.7); Neutrophils % (A) 74 %; Platelet Count 222 k/uL (150-450); RBC 4.24 m/uL (3.80-5.40); RDW 14.1 % (11.5-15.5); WBC 6.9 k/uL (3.8-10.6)
[2019-07-10 08:20] LABS: ALT 524 U/L (9-52); AST 192 U/L (14-36); African American GFR (CKD) >90 (>60 ml/min/1.73 sqM); Albumin 3.5 g/dL (3.5-5.0); Alkaline Phosphatase 225 U/L (38-126); Anion Gap 8 mmol/L; Blood Urea Nitrogen 8 mg/dL (7-17); Calcium 9.2 mg/dL (8.4-10.2); Carbon Dioxide 26 mmol/L (22-30); Chloride 107 mmol/L (98-107); Glucose 83 mg/dL (74-99); Non-African American GFR(CKD) >90 (>60 ml/min/1.73 sqM); Potassium 4.2 mmol/L (3.5-5.1); Sodium 141 mmol/L (137-145); Total Bilirubin 1.6 mg/dL (0.2-1.3); Total Protein 6.3 g/dL (6.3-8.2)
--- NOTE | 2019-07-10 10:46 | PN ---
PROGRESS NOTE DATE OF SERVICE: July 10, 2019 Patient is a 28-year-old pleasant white female admitted to the hospital with post ERCP pancreatitis. She has significantly improved. Abdominal pain is almost resolved. No further episodes of nausea, vomiting. On a clear liquid diet, requesting to advance diet. She denies any fever, chills, or night sweats. PHYSICAL EXAMINATION: Appears comfortable in no apparent distress. Vital signs stable. Blood pressure 118/67, pulse is 64, temperature 98.1. HEENT examination unremarkable. Conjunctivae pink. Sclerae anicteric. Oral cavity no lesions. NECK: No JVD or lymph node enlargement. CHEST: Clear to auscultation. HEART: Regular rate and rhythm. ABDOMEN: Soft, mild tenderness in the epigastric area. Bowel sounds are positive. No organomegaly. EXTREMITIES: No pedal edema. SKIN: No rashes. NEUROLOGIC: Alert and oriented x3. No focal deficits. LABS: WBC 6.9, hemoglobin 12.8, platelets normal. T-bilirubin down to 1.6. AST 192, ALT 524, and alkaline phosphatase 225. Lipase is 935. IMPRESSION: 1. Acute post ERCP pancreatitis gradually improving. 2. Common bile duct stone status post ERCP with common bile duct stone extraction 2 days ago. LFTs are gradually improving. RECOMMENDATIONS: 1. Advance to low-fat diet. 2. Repeat labs in the morning and if they are all better, she can be discharged home tomorrow with outpatient followup in 2 weeks. Thank you for this consultation. MMODL / IJN: [id number] /
--- NOTE | 2019-07-10 11:15 | P.PN ---
Subjective Progress Note Date: 07/10/19 Patient seen and examined at bedside, reports some nausea and rates her abdominal pain about a 6, cousin present. She denies chest pain or shortness of breath and lipase is down to 931 from 5616 from 04557. AST and PNC399/524, total bili 1.6. No acute events overnight. Patient apparently requested that her fluids be decreased overnight was at 50 mL an hour, discussed that we need to increase her fluids back up to at least 110 mL/h Objective - Vital Signs Vital signs: Vital Signs Temp 98.1 F 07/10/19 05:23 Pulse 64 07/10/19 05:23 Resp 20 07/10/19 05:23 BP 118/67 07/10/19 05:23 Pulse Ox 97 07/10/19 05:23 Intake & Output 07/09/19 07/10/19 07/10/19 18:59 06:59 18:59 Intake Total 2400 Balance 2400 Intake: Intake, IV Titration 1600 Amount Sodium Chloride 0.9% 1, 1600 000 ml @ 200 mls/hr IV . Q5H [facility] Rx#:[id number] Oral 800 Other: # Voids 4 - Exam Constitutional: No acute distress, conversant, pleasant Eyes: Anicteric sclerae, moist conjunctiva, no lid-lag, PERRLA ENMT: NC/AT,Oropharynx clear, no erythema, exudates Neck:Supple, FROM, no masses, or JVD, No carotid bruits; No thyromegaly Lungs: Clear to auscultation, Clear to percussion, Normal respiratory effort, no accessory muscle use Cardiovascular: Heart regular in rate and rhythm, No murmurs, gallops, or rubs no peripheral edema Abdominal: Mildly TTP in epigastrium, nom distended, no guarding, no rebound or rigidity, Normoactive bowel sounds No hepatomegaly, No splenomegaly, No palpable mass No abdominal wall hernia noted Skin: Normal temperature, tone, texture, turgor, No induration No subcutaneous nodules, No rash, lesions, No ulcers Extremities:No digital cyanosis No clubbing, Pedal pulses intact and symmetrical Radial pulses intact and symmetrical Normal gait and station, No calf tenderness Psychiatric: Alert and oriented to person, place and time, Appropriate affect Intact judgement Neuro: Muscles Strength 5/5 in all 4 extremities, Sensation to light touch grossly present throughout, Cranial nerves II-XII grossly intact. No focal sensory deficits - Labs CBC & Chem 7: 07/10/19 07:37 07/10/19 07:37 Labs: Abnormal Lab Results - Last 24 Hours (Table) 07/10/19 Range/Units 07:37 Total Bilirubin 1.6 H (0.2-1.3) mg/dL AST 192 H (14-36) U/L ALT 524 H (9-52) U/L Alkaline Phosphatase 225 H (38-126) U/L Lipase 935 H (23-300) U/L Assessment and Plan Assessment: Acute pancreatitis * Secondary to ERCP with biliary sphincterotomy and balloon stone extraction procedure * Continue current management with IV fluids, IV antiemetics and IV Dilaudid * Lipase trending down to 5616 from [id number] * Patient being seen by GI appreciated recommendations * Patient initiated on clear liquid diet Transaminitis * Post ERCP with biliary sphincterotomy and balloon stone extraction Hyperbilirubinemia * Post ERCP with biliary sphincterotomy and balloon stone extraction Disposition * Continue current management of pancreatitis * Anticipated discharge 1-2 days
[2019-07-10] MEDS: KETOROLAC 30 MG/ML 1 ML VIAL IVP PRN (13:34)
[2019-07-10 15:00] VITALS: RESP 16
[2019-07-11] MEDS: SODIUM CHLORIDE 0.9% 1,000 ML IV SCH (09:59)
[2019-07-11 10:23] LABS: ALT 351 U/L (9-52); AST 82 U/L (14-36); African American GFR (CKD) >90 (>60 ml/min/1.73 sqM); Albumin 3.4 g/dL (3.5-5.0); Alkaline Phosphatase 177 U/L (38-126); Anion Gap 7 mmol/L; Blood Urea Nitrogen 6 mg/dL (7-17); Calcium 9.2 mg/dL (8.4-10.2); Carbon Dioxide 25 mmol/L (22-30); Chloride 110 mmol/L (98-107); Glucose 92 mg/dL (74-99); Non-African American GFR(CKD) >90 (>60 ml/min/1.73 sqM); Potassium 4.7 mmol/L (3.5-5.1); Sodium 142 mmol/L (137-145); Total Bilirubin 1.1 mg/dL (0.2-1.3); Total Protein 6.2 g/dL (6.3-8.2)
--- NOTE | 2019-07-11 11:54 | P.DS ---
Providers Date of admission: 07/08/19 04:09 Expected date of discharge: 07/11/19 Attending physician: Malena Mohr MD Consults: 07/08/19 03:57 Consult Physician Routine Consulting Provider: Shantal Rodriguez Consult Reason/Comments: Pancreatitis Do you want consulting provider notified?: Yes Primary care physician: Stated None Hospital Course: Discharge diagnosis Post ERCP pancreatitis Transaminitis Hyperbilirubinemia History of cholestasis of Hospital course The patient is a 28-year-old female is admitted with post-ERCP pancreatitis after under go an ERCP with biliary sphincterotomy and balloon stone extraction procedure after undergoing cholecystectomy for symptomatic gallstones about 3 months ago. The patient had an MRCP done as an outpatient that showed some elevated, and bile duct without any obvious filling defect, however the patient had elevation of her total bilirubin up to 2.9 there was suspicion for as CBD stone. She subsequently underwent ERCP and presented here with abdominal pain and post ERCP pancreatitis [place] [address], total bilirubin 2.1. The patient was started on topical regimen for pancreatitis including anti-emetics IV fluids and good analgesic therapy with Dilaudid. With treatment her lipase and transaminitis gradually trended down and her diet was reintroduced slowly to a low-fat diet. Her lipase decreased down to 404 and her hyperbilirubinemia resolved transaminase AST ALT were down to 351/177. The patient did well without any symptoms on resumption of her low- fat diet and was subsequently discharged home in stable condition with plan for scheduled follow-up in GI clinic to see Dr. Rodriguez 07/27/19. This discharge process took approximately 35 minutes Focused exam GI: Soft nontender nondistended, nonacute abdomen Patient Condition at Discharge: Good Plan - Discharge Summary New Discharge Prescriptions: Continue Ibuprofen 600 mg PO Q8HR PRN PRN Reason: Pain Discharge Medication List Ibuprofen 600 mg PO Q8HR PRN 07/08/19 [History] Follow up Appointment(s)/Referral(s): Shantal Rodriguez MD [STAFF PHYSICIAN] - 07/27/19 12:00 pm None,Stated [Primary Care Provider] - 1-2 days Discharge Disposition: HOME SELF-CARE
[2019-07-11 14:04] VITALS: BP 117/74; PULSE 73; TEMP 98.1
== END 2019-07-11 14:28 | disposition home or self-care (01) | DRG 393 ==
LOC: EC 02:56 → 6PED 04:09 → 4MS4W 22:53
PROVIDERS: ADMIT Internal Medicine; ATTEND Internal Medicine
DX: K91.89 Other postprocedural complications and disorders of digestive system (principal); K85.90 Acute pancreatitis without necrosis or infection, unspecified; K80.50 Calculus of bile duct without cholangitis or cholecystitis without obstruction; K76.9 Liver disease, unspecified; R74.0 Nonspecific elevation of levels of transaminase and lactic acid dehydrogenase [LDH]; Z90.49 Acquired absence of other specified parts of digestive tract; Y84.8 Other medical procedures as the cause of abnormal reaction of the patient, or of later complication, without mention of misadventure at the time of the procedure; Y92.009 Unspecified place in unspecified non-institutional (private) residence as the place of occurrence of the external cause
CPT/HCPCS: 36415; 74018; 80053; 81001; 82150; 83690; 85025; 96361; 96374; 96375; 99285

== ENCOUNTER → 2020-10-24 | Outpatient (CLI) | payer MEDICAID, OTHER ==
[2020-10-24 16:08] LABS: HGB 15.2 g/dL (12.0-15.0); MCH 31.5 pg (27.0-32.0); MCV 95.2 fL (80.0-97.0); Mean Platelet Volume 10.8 fL (9.5-12.2); Platelet Count 230 X 10*3/uL (140-440); RBC 4.83 X 10*6/uL (4.10-5.20); RDW 12.2 % (11.5-14.5); WBC 4.97 X 10*3/uL (4.50-10.00)
[2020-10-24 18:08] LABS: Progesterone 0.3 ng/mL
[2020-10-24 20:24] LABS: Prolactin 7.5 ng/mL (2.8-29.2)
[2020-10-24 20:25] LABS: Luteinizing Hormone 12.4 mIU/mL
[2020-10-24 20:26] LABS: Follicle Stimulating Hormone 5.5 mIU/mL
[2020-10-24 20:36] LABS: Hemoglobin A1C 4.8 % (4.0-6.0)
[2020-10-24 20:46] LABS: ALT 20 U/L (8-44); AST 18 U/L (13-35); Alkaline Phosphatase 148 U/L (41-126); Bilirubin, Conjugated <0.20 mg/dL (0.20-0.40); Globulin 2.5 g/dL (1.6-3.3); Total Bilirubin 0.3 mg/dL (0.2-1.2); Total Protein 7.5 g/dL (6.2-8.2)
== END | disposition home or self-care (01) ==
LOC: LABWHC1 08:37
PROVIDERS: ATTEND Obstetrics & Gynecology
DX: N97.0 Female infertility associated with anovulation (principal)
CPT/HCPCS: 36415; 80076; 82670; 83001; 83002; 83036; 84144; 84146; 84439; 84443; 84479; 85027

== ENCOUNTER → 2021-09-26 | Outpatient (CLI) | payer MEDICAID ==
[2021-09-26 11:51] LABS: Estradiol 56.4 pg/mL; Follicle Stimulating Hormone 4.9 mIU/mL; HCG,Quantitative Serum <3.0 (0.0-6.0); Luteinizing Hormone 16.4 mIU/mL
[2021-09-26 12:17] LABS: HCT 44.9 % (37.2-46.3); MCH 31.3 pg (27.0-32.0); MCHC 33.4 g/dL (32.0-37.0); MCV 93.7 fL (80.0-97.0); Mean Platelet Volume 10.9 fL (9.5-12.2); NRBC Per 100 WBC 0 /100 WBCS (0.0-0.0); Platelet Count 247 X 10*3/uL (140-440); RBC 4.79 X 10*6/uL (4.10-5.20); RDW 12.3 % (11.5-14.5); WBC 6.83 X 10*3/uL (4.50-10.00)
== END | disposition home or self-care (01) ==
LOC: LABWHC1 07:36
PROVIDERS: ATTEND Obstetrics & Gynecology
DX: N91.2 Amenorrhea, unspecified (principal); N97.0 Female infertility associated with anovulation
CPT/HCPCS: 36415; 82670; 83001; 83002; 84146; 84702; 85027

== ENCOUNTER → 2021-10-29 | Outpatient (CLI) | payer MEDICAID | END | disposition home or self-care (01) | LOC: LABWHC1 07:41 | PROVIDERS: ATTEND Obstetrics & Gynecology | DX: N97.0 Female infertility associated with anovulation (principal) | CPT/HCPCS: 36415; 84144 ==

== ENCOUNTER → 2021-12-17 | Outpatient (CLI) | payer MEDICAID | END | disposition home or self-care (01) | LOC: LABWHC1 10:16 | PROVIDERS: ATTEND Obstetrics & Gynecology | DX: N97.0 Female infertility associated with anovulation (principal) | CPT/HCPCS: 36415; 84144 ==

== ENCOUNTER → 2023-05-26 | Outpatient (CLI) | payer MEDICAID ==
[2023-05-26 10:31] LABS: HCT 40.4 % (34.0-46.0); HGB 14.4 gm/dL (11.4-16.0); MCH 33.3 pg (25.0-35.0); MCHC 35.7 g/dL (31.0-37.0); MCV 93.3 fL (80.0-100.0); Platelet Count 183 k/uL (150-450); RBC 4.34 m/uL (3.80-5.40); RDW 12.7 % (11.5-15.5); WBC 7.4 k/uL (3.8-10.6)
[2023-05-26 10:52] LABS: African American GFR (CKD) >90 (>60 ml/min/1.73 sqM); Glucose 89 mg/dL (74-99); Non-African American GFR(CKD) >90 (>60 ml/min/1.73 sqM)
[2023-05-26 16:12] LABS: Hepatitis B Surface Antigen Nonreactive; Hepatitis C IgG Antibody Nonreactive
[2023-05-26 17:07] LABS: HIV 2 AB Non-Reactive (Non-Reactive); HIV AB P24 Non-Reactive (Non-Reactive); HIV P24 AG Non-Reactive (Non-Reactive)
== END | disposition home or self-care (01) ==
LOC: LABWHC1 09:50
PROVIDERS: ATTEND Obstetrics & Gynecology
DX: O20.0 Threatened abortion (principal); Z3A.00 Weeks of gestation of pregnancy not specified
CPT/HCPCS: 36415; 82565; 82947; 84702; 85027; 86762; 86780; 86803; 86900; 86901; 87340; 87390

== ENCOUNTER → 2023-06-05 | Outpatient (CLI) | payer MEDICAID ==
--- NOTE | 2023-06-05 16:46 | US ---
EXAMINATION TYPE: Transabdominal DATE OF EXAM: 06/05/2023 4:24 PM COMPARISON: NONE CLINICAL INDICATION: Female, 32 years old with history of Z36.89 ENCOUNTER FOR OTHER SPECIFIED ANTENA BRI SCR; confirm dates EXAM PERFORMED: Transabdominal (TA) EXAM MEASUREMENTS: GESTATIONAL AGE / DATING Physician Established: Not yet established Dates by LMP: (8 weeks/4 days) EDC: 01/11/2024 Dates by First Scan: No previous this is first scan Dates by Current Scan for: (7 weeks/6 days) EDC: 01/16/2024 MATERNAL ANATOMY Uterus: 10.5 x 6.9 x 8.4 cm Right Ovary: 1.8 x 2.1 x 3.6 cm Left Ovary: obscured by bowel gas Post CDS / Adnexa: wnl Presence of free fluid: no Presence of corpus luteal cyst: no Presence of subchorionic bleed: no GESTATION / SURVEY CRL: 1.49 cm (7 weeks/6 days) Yolk Sac (normal less than 6mm): 3 mm Heart Rate: 153 bpm Rhythm: Normal IUP: Viable IUP Beta HcG (if available): Not available at this time IMPRESSION: Single live intrauterine gestation with ultrasound age 7 weeks 6 days.
== END | disposition home or self-care (01) ==
LOC: RADUSWWP 16:08
PROVIDERS: ATTEND Obstetrics & Gynecology
DX: Z36.89 Encounter for other specified antenatal screening (principal); Z3A.08 8 weeks gestation of pregnancy
CPT/HCPCS: 76801

== ENCOUNTER → 2023-08-25 | Outpatient (CLI) | payer MEDICAID ==
--- NOTE | 2023-08-25 16:27 | US ---
EXAMINATION TYPE: US OB anatomy transabd DATE OF EXAM: 08/25/2023 COMPARISON: NONE CLINICAL INDICATION: Female, 32 years old with history of O36.62X0 MATERNAL CARE FOR EXCESS RENETTA WTH, SE; Anatomy scan TECHNIQUE: Transabdominal (TA) EXAM MEASUREMENTS: GESTATIONAL AGE / DATING Physician Established: (20 weeks/1 days) EDC: 01/11/2024 Dates by LMP: (20 weeks/1 days) EDC: 01/11/2024 Dates by First Scan: (19 weeks/3 days) EDC: 01/16/2024 Dates by Current Scan for: (20 weeks/3 days) EDC: 01/09/2024 SURVEY IUP: Single PLACENTA: Located within lower uterine segment/posterior and appears to be complete previa when bladd er is full, marginal previa when bladder is empty MICHAEL: 12.5 cm Normal CERVICAL LENGTH (transabdominal: norm > 3.0cm): 3.7 cm BIOMETRY PRESENTATION: Vertex BPD: 4.9 cm 20 weeks / 6 days HC: 18.2 cm 20 weeks / 4 days AC: 15.7 cm 20 weeks / 6 days FL: 3.4 cm 20 weeks / 4 days ESTIMATED WEIGHT IN GRAMS: 371.7 grams ESTIMATED WEIGHT IN LBS/OZ: 0 lbs. 13 oz. WEIGHT PERCENTAGE BASED ON ESTABLISHED DATE: 76.8 % HC/AC: 1.16 Normal FL/AC: 21 Normal HEART RATE: 149 bpm RHYTHM: Normal ANATOMY SEEN (within normal limits): * Lateral Vent (< 1 cm) 0.7 cm * Cisterna Magna (< 1.1 cm) 0.3 cm * Nuchal Fold (< 0.6 cm) 0.4 cm * Cerebellum (varies with age) 1.9 cm Choroid Plexus (bilateral) Midline Falx Cavus Septi Pellucidi Outflow tracts: LVOT/RVOT Stomach Situs Nose / Lips Diaphragm Bladder Cord Insert Three Vessel Cord Arms (bilateral) Legs (bilateral) ANATOMY SEEN (does not appear within normal limits): Kidneys (bilateral) Right renal pelvis= 0.5 cm Left renal pelvis= 0.4 cm ANATOMY NOT SEEN: Four Chamber Heart- position Longitudinal Spine- position Transverse Spine- position Single, viable IUP/ Anatomy visualized above Pt returning Sep 10 at 3:00pm for additional images of spine and 4 chamber heart IMPRESSION: 1. Single intrauterine gestation estimated at 20 weeks 3 days gestation based on current ultrasound m easurements. Cardiac activity measures 1 49 bpm. 2. Portions of anatomy was not identified during this exam due to positioning time imaging. Pat ient scheduled to return to complete the exam.
== END | disposition home or self-care (01) ==
LOC: RADUSWWP 13:51
PROVIDERS: ATTEND Obstetrics & Gynecology
DX: O36.62X1 Maternal care for excessive fetal growth, second trimester, fetus 1 (principal); Z3A.21 21 weeks gestation of pregnancy
CPT/HCPCS: 76811

== ENCOUNTER → 2023-09-10 | Outpatient (CLI) | payer MEDICAID ==
--- NOTE | 2023-09-10 16:02 | US ---
EXAMINATION TYPE: US OB Call Back DATE OF EXAM: 09/10/2023 COMPARISON: Anatomy 08/25/2023 CLINICAL INDICATION: Female, 32 years old with history of O36.62X0 OB CALL BACK; Missed anatomy - sp ine and 4 chamber GESTATIONAL AGE / DATING Dates by Initial Survey Scan: (22weeks/3 days) EDC: 01/11/2024 HEART RATE: 138pm RHYTHM: Normal ANATOMY SEEN (second anatomic survey look): Four Chamber Heart: WNL Longitudinal Spine: WNL Transverse Spine: WNL ANATOMY STILL NOT SEEN (requiring an additional callback appt): NONE Technologist findings reviewed. Evaluation of the static images in the prior study are reviewed. There appears to remain some limitation on the transverse spine images in the lower lumbar spine and sacrum. Initial scan is reviewed in relation to the current additional imaging. Appears to be some limitation on the axial sacral region. Although a definite abnormality is not identified, since this area trevor ot be completely cleared as normal, the prior images are reviewed for other more subtle anomalies. Th ere may be some mild caliectasis within the bilateral kidneys. Marginal versus placenta previa previo us exam. There are sufficient borderline findings to warrant a recommendation for a closer examination OB ultr asound for high risk survey. IMPRESSION: 1. Recommend high risk center evaluation for survey. 2. Dating by ultrasound measurements not performed at this time. Dates by initial survey are 22 weeks 3 days gestation. 3. Cardiac activity measures 138 bpm during this exam.
== END | disposition home or self-care (01) ==
LOC: RADUSWWP 14:46
PROVIDERS: ATTEND Obstetrics & Gynecology
DX: O36.62X0 Maternal care for excessive fetal growth, second trimester, not applicable or unspecified (principal); Z3A.23 23 weeks gestation of pregnancy

== ENCOUNTER 2024-01-01 03:41 | Inpatient (IN) | payer MEDICAID ==
[2024-01-01] MEDS ORDERED: METHYLERGONOVINE 0.2 MG/ML 1 ML AMP IM PRN (04:02)
[2024-01-01] MEDS ORDERED: miSOPROStoL 200 MCG TAB PO PRN (04:02)
[2024-01-01] MEDS ORDERED: TRANEXAMIC 1,000 MG/100ML-NACL 1,000 MG in EMPTY BAG 1 BAG IV PRN (04:02)
[2024-01-01] MEDS ORDERED: OXYTOCIN 10 UNIT/ML 1 ML VIAL IM PRN (04:02)
[2024-01-01] MEDS ORDERED: CARBOPROST TROMETHAMINE 250 MCG/ML 1 ML AMP IM PRN (04:02)
[2024-01-01] MEDS: CITRIC ACID-SODIUM CITRATE 15 ML CUP PO ONE (04:13)
--- NOTE | 2024-01-01 04:23 | P.HPOB ---
History of Present Illness H&P Date: 01/01/24 Chief Complaint: Bleeding, low-lying placenta Ms. Millan is a 33 year old at 38 weeks and 5 days by LMP and 7 week US who has been scheduled for a primary section this Thursday for low-lying placenta, history of shoulder dystocia and fourth degree laceration with her last vaginal delivery. She presents this morning for regular uterine contractions and moderate bright red bleeding from the vagina. On recent growth US at 36 weeks, the fetus was estimated in the 60%ile for weight, the placenta was seen posteriorly and 12mm from the internal cervical os. Obstetric history: 1 FTVD complicated by shoulder dystocia and fourth degree laceration work-up: blood type A positive, antibody negative, rubella immune, VDRL non-reactive, HBsAg negative, HIV negative, HCV Ab negative, gonorrhea negative, chlamydia negatie, 1 hour GTT wnl, GBS negative. Past Medical History Past Medical History: Liver Disease Additional Past Medical History / Comment(s): cholecystitis, pancreatitis History of Any Multi-Drug Resistant Organisms: None Reported Past Surgical History: Cholecystectomy Additional Past Surgical History / Comment(s): princess 04/2019, ERCP 06/2019 Past Anesthesia/Blood Transfusion Reactions: No Reported Reaction Additional Past Anesthesia/Blood Transfusion Reaction / Comment(s): no hx blood transfusion Past Psychological History: No Psychological Hx Reported Additional Psychological History / Comment(s): ADD in 3rd grade, resolved per pt Past Alcohol Use History: None Reported Past Drug Use History: None Reported - Past Family History Mother Family Medical History: No Reported History Additional Family Medical History / Comment(s): hyperemesis Father Family Medical History: No Reported History Medications and Allergies Home Medications Medication Instructions Recorded Confirmed Type Vit No.180/Iron/Folic 1 each PO DAILY 01/01/24 01/01/24 History [ Plus Tablet] Allergies Allergy/AdvReac Type Severity Reaction Status Date / Time No Known Allergies Allergy Verified 01/01/24 03:47 Exam Intake and Output 12/31/23 12/31/23 01/01/24 14:59 22:59 06:59 Other: Weight 76.204 kg Focused physical exam is performed. This is a healthy-appearing in no apparent distress. Breathing is non-labored. Abdomen is gravid and non-tender. Cervical exam is deferred secondary to low-lying placenta. Extremities non- tender and non-edematous. heart tones are Category I and tocometer is graphing contractions every 2-4 minutes. Assessment and Plan Assessment: 33 year old at 38 weeks and 5 days with low-lying placenta presents to triage in labor with moderate bright red bleeding Plan: Admit, NPO, initiate protocol.
[2024-01-01 04:29] LABS: Basophils % (A) 0 %; Eosinophils # (A) 0.1 k/uL (0-0.7); Eosinophils % (A) 1 %; HCT 37.6 % (34.0-46.0); HGB 12.8 gm/dL (11.4-16.0); Lymphocytes # (A) 1.1 k/uL (1.0-4.8); Lymphocytes % (A) 15 %; MCH 32.2 pg (25.0-35.0); MCHC 34.1 g/dL (31.0-37.0); MCV 94.4 fL (80.0-100.0); Mean Platelet Volume 8.4; Monocytes # (A) 0.3 k/uL (0-1.0); Monocytes % (A) 4 %; Neutrophils # (A) 5.6 k/uL (1.3-7.7); Neutrophils % (A) 77 %; Platelet Count 189 k/uL (150-450); RBC 3.98 m/uL (3.80-5.40); RDW 13.4 % (11.5-15.5); WBC 7.2 k/uL (3.8-10.6)
[2024-01-01] MEDS ORDERED: diphenhydrAMINE 50 MG/ML 1 ML VIAL ONE (04:32)
[2024-01-01] MEDS ORDERED: ONDANSETRON 4 MG/2 ML VIAL ONE (04:32)
[2024-01-01] MEDS ORDERED: OXYTOCIN 30 UNITS/500 ML NS BAG IV ONE (04:32)
[2024-01-01] MEDS ORDERED: PHENYLEPHRINE-0.9% NACL SYG 1,000 MCG/10 ML SYRINGE ONE (04:32)
[2024-01-01] MEDS ORDERED: KETOROLAC 30 MG/ML 1 ML VIAL ONE (04:32)
[2024-01-01] MEDS ORDERED: MORPHINE SULFATE (PF) 0.3 MG/0.3 ML SYR ONE (04:32)
[2024-01-01] MEDS ORDERED: NALBUPHINE 10 MG/ML (10 ML MDV) ONE (04:32)
[2024-01-01] MEDS ORDERED: METOCLOPRAMIDE 5 MG/ML 2 ML VIAL IVP PRN (05:29)
[2024-01-01] MEDS ORDERED: SIMETHICONE 80 MG CHEWABLE PO PRN (05:29)
[2024-01-01] MEDS ORDERED: ONDANSETRON 4 MG/2 ML VIAL IVP PRN (05:29)
[2024-01-01] MEDS ORDERED: diphenhydrAMINE 25 MG CAP PO PRN (05:29)
[2024-01-01] MEDS ORDERED: NALOXONE 0.4 MG/ML 1 ML VIAL IV PRN (05:29)
[2024-01-01] MEDS ORDERED: ZOLPIDEM 5 MG TAB PO PRN (05:29)
[2024-01-01] MEDS ORDERED: diphenhydrAMINE 50 MG/ML 1 ML VIAL IVP PRN ×2 (05:29)
[2024-01-01] MEDS ORDERED: diphenhydrAMINE 50 MG CAP PO PRN (05:29)
--- NOTE | 2024-01-01 05:29 | P.OP ---
Date of Procedure: 01/01/24 Preoperative Diagnosis: 1. Term IUP at 38 weeks and 5 days 2. Low-Lying Placenta 3. Labor 4. Vaginal Bleeding 5. History of shoulder dystocia 6. History of fourth degree laceration Postoperative Diagnosis: Same Procedure(s) Performed: Primary Lower Transverse Section Implants: None Anesthesia: spinal Surgeon: Dalia Brewster Customer Service Receptionist #1: Rajwinder Bundy Estimated Blood Loss (ml): 640 IV fluids (ml): 800 Urine output (ml): 50 Pathology: none sent Condition: stable Disposition: floor Indications for Procedure: Ms. Millan is a 33 year old who was scheduled for a primary section on Thursday for low-lying placenta. She presented to triage in labor with regular uterine contractions and moderate vaginal bleeding. The risks, benefits, and alternatives to section were discussed with the patient including risk of bleeding, infection, damage to surrounding structures including bladder/bowels/ureters, and post-operative VTE. The patient understands these risks and desires to proceed with section. Operative Findings: Clear amniotic fluid. Viable male in cephalic presentation. Apgars 8/9, weight 7 pounds and 2 ounces (3220 grams). Normal uterus, bilateral fallopian tubes and ovaries. Description of Procedure: The patient was taken to the operating room where spinal anesthesia was found to be adequate. Two grams were given for infection prophylaxis. She was prepared and draped in the dorsal supine position with a leftward tilt. A Pfannenstiel skin incision was made with the scalpel. The incision was carried down to the fascia with a bovie. The fascia was incised and extended laterally with Méndez scissors. The superior aspect of the fascia was grasped with Andreina clamps. The underlying rectus muscle was dissected off sharply with Méndez scissors. In a similar fashion, the inferior aspect of the fascia was elevated with Andreina clamps and the rectus muscle and pyramidalis were dissected off. Excellent hemostasis was achieved with the bovie. The rectus muscle was in the midline down to the level of the pubic symphysis. Pre-peritoneal fatty tissue was bluntly dissected to expose the peritoneum. The peritoneum was found to be free of adherent bowel and entered sharply with Méndez scissors. The peritoneal incision was extended superiorly and inferiorly to the bladder reflection with good visualization of the bladder. The bladder blade was inserted and vesicouterine peritoneum was identified. Intraabdominal survey revealed scant, clear peritoneal fluid and the thinned-out lower uterine segment. The vesicouterine peritoneum was opened with scissors and the bladder flap was developed. The bladder blade was repositioned to keep the bladder out of the operative field. The lower uterine segment was incised with a scalpel. The amniotic sac was ruptured with an Allis clamp and clear fluid was noted. The uterine incision was extended bluntly with lateral and upward traction. The fetus was in occiput anterior position. The head was elevated out of the pelvis with special attention paid to avoid using the uterine incision as a fulcrum. Ge ntle fundal pressure was applied once the head was brought into the incision. The was delivered with no difficulty. The mouth and nose were suctioned with a bulb. The cord was clamped and cut. was noted to be spontaneously crying. The infant was handed off to the industrial accountant. IV oxytocin was initiated to facilitate uterine contractions. The placenta was delivered intact with manual massage of uterine fundus. The uterus was then exteriorized and the inside of the uterus was gently wiped with a lap sponge to assure complete removal of placental membranes. The uterine incision was closed with a 0- Polysorb suture in a running locked fashion. A second imbricating layer of 0- Polysorb was placed along the incision. The ovaries and tubes were found to be normal. The uterus, tubes, and ovaries were then gently returned to the abdominal cavity. The blood clots and fluid were wiped out of the abdomen and pelvis with moist laparotomy sponges. The pelvis was copiously suction irrigat ed.The uterine incision was reinspected and excellent hemostasis was noted. The fascial layer was closed with a 0-Vicryl suture. The subcutaneous tissue was reapproximated with 2-0 Plain Gut. The skin was closed with 4-0 Monocryl in a subcuticular fashion. The patient tolerated the procedure well. All the counts were correct times two. The patient was taken to the recovery room in a stable condition.
[2024-01-01] MEDS: LACTATED RINGERS 1,000 ML IV SCH (10:06)
[2024-01-01] MEDS: ACETAMINOPHEN TAB 500 MG TAB PO SCH (10:06)
[2024-01-01] MEDS: SENNOSIDES-DOCUSATE SODIUM 1 EACH TAB PO SCH (10:06)
[2024-01-01 10:31] VITALS: RESP 16
[2024-01-01] MEDS: IBUPROFEN 600 MG TAB PO SCH (13:27)
[2024-01-01] MEDS: KETOROLAC 15 MG/ML 1 ML VIAL IVP SCH (19:25)
[2024-01-02 05:14] LABS: Basophils % (A) 0 %; Eosinophils # (A) 0.1 k/uL (0-0.7); Eosinophils % (A) 1 %; HCT 31.3 % (34.0-46.0); HGB 10.4 gm/dL (11.4-16.0); Lymphocytes # (A) 1.9 k/uL (1.0-4.8); Lymphocytes % (A) 24 %; MCH 31.7 pg (25.0-35.0); MCHC 33.2 g/dL (31.0-37.0); MCV 95.5 fL (80.0-100.0); Mean Platelet Volume 8.3; Monocytes # (A) 0.4 k/uL (0-1.0); Monocytes % (A) 5 %; Neutrophils # (A) 5.4 k/uL (1.3-7.7); Neutrophils % (A) 68 %; Platelet Count 149 k/uL (150-450); RBC 3.28 m/uL (3.80-5.40); RDW 13.7 % (11.5-15.5); WBC 7.9 k/uL (3.8-10.6)
--- NOTE | 2024-01-02 11:25 | P.PNOBGPC ---
Subjective - Subjective Principal diagnosis: Status post repeat low transverse postop day 1 Interval history: Patient seen and examined. Denies nausea, vomiting, chest pain, shortness of breath or calf pain. Patient reports: Reports appetite normal, Reports voiding normally, Reports pain well controlled, Reports ambulating normally [place]: doing well Objective - Vital Signs Latest vital signs: Vital Signs Temp Pulse Resp BP Pulse Ox 01/02/24 03:55 97.7 F 75 16 115/70 97 01/01/24 20:00 88 16 111/64 95 01/01/24 17:00 98.1 F 75 16 114/57 97 Intake and Output 01/01/24 01/02/24 01/02/24 22:59 06:59 14:59 Intake Total 425 Output Total 500 Balance -75 Intake: IV 425 Output: Urine 500 Other: # Voids 1 1 - Exam Lungs: bilateral: normal Chest: Normal S1, Normal S2 Extremities: Present: normal Abdomen: Present: normal appearance, soft. Absent: distention, tenderness Incision: Present: normal, dry, intact Uterus: Present: normal, firm - Labs Labs: Abnormal Lab Results - Last 24 Hours (Table) 01/02/24 Range/Units 04:47 RBC 3.28 L (3.80-5.40) m/uL Hgb 10.4 L (11.4-16.0) gm/dL Hct 31.3 L (34.0-46.0) % Plt Count 149 L (150-450) k/uL Assessment and Plan (1) Status post primary low transverse section Current Visit: Yes Status: Acute Code(s): Z98.891 - HISTORY OF UTERINE SCAR FROM PREVIOUS SURGERY SNOMED Code(s): 450418754 Plan: 1. Increase ambulation 2. Continue postoperative care
--- NOTE | 2024-01-02 20:00 | P.PN ---
Progress Note - Text 01/02/24 1137 31-year-old female status post spinal Duramorph. Patient seen and evaluated for postop pain control she has a VAS of 2 with no complaints of nausea vomiting or pruritus. She is doing well this morning
[2024-01-03 09:55] VITALS: BP 116/68; PULSE 77; TEMP 98.3
--- NOTE | 2024-01-03 10:53 | P.DS ---
Providers Date of admission: 01/01/24 04:02 Expected date of discharge: 01/03/24 Attending physician: Marli Manriquez Primary care physician: Stated None - Discharge Diagnosis(es) (1) Status post primary low transverse section Current Visit: Yes Status: Acute Hospital Course: Pt presented in labor. She underwent a primary low transverse for history of shoulder dystocia. she had an uncomplicated po course. She denies N/V, F/C, CP, SOB and calf pain. Pt will be discharged home PPD #2 in stable condition to follow up with me in 2 weeks. Plan - Discharge Summary New Discharge Prescriptions: No Action Vit No.180/Iron/Folic [ Plus Tablet] 1 each PO DAILY Discharge Medication List Vit No.180/Iron/Folic [ Plus Tablet] 1 each PO DAILY 01/01/24 [History] Follow up Appointment(s)/Referral(s): Marli Manriquez DO [Doctor of Osteopathic Medicine] - 02/15/24 2:45 pm (Post C/S Appointment 01-18-2024 at 1:45pm) Discharge Disposition: HOME SELF-CARE
== END 2024-01-03 12:20 | disposition home or self-care (01) | DRG 788 ==
LOC: FBPOP 03:41 → 4FBP 04:02
PROVIDERS: ADMIT Obstetrics & Gynecology; ATTEND Obstetrics & Gynecology
PROC: 10D00Z1 Extraction of Products of Conception, Low, Open Approach (ICD-10-PCS; principal; 2024-01-01 04:47)
DX: O44.53 Low lying placenta with hemorrhage, third trimester (principal); Z3A.38 38 weeks gestation of pregnancy; Z37.0 Single live birth; Z87.59 Personal history of other complications of pregnancy, childbirth and the puerperium; Z28.310 Unvaccinated for COVID-19; Z28.21 Immunization not carried out because of patient refusal
CPT/HCPCS: 59025; 85025; 86850; 86900; 86901; 99215

== ENCOUNTER 2024-01-25 21:38 | Emergency (ER) | payer MEDICAID ==
[2024-01-25] MEDS: SODIUM CHLORIDE 0.9% 1,000 ML IV STA (23:21)
--- NOTE | 2024-01-25 23:35 | XR ---
EXAMINATION TYPE: XR chest 2V DATE OF EXAM: 01/25/2024 COMPARISON: NONE HISTORY: Fever TECHNIQUE: Frontal and lateral views of the chest are obtained. FINDINGS: There is no focal air space opacity, pleural effusion, or pneumothorax seen. The cardiac silhouette size is within normal limits. The osseous structures are intact. IMPRESSION: No acute pulmonary infiltrate.
[2024-01-25] MEDS: ACETAMINOPHEN TAB 500 MG TAB PO STA (23:41)
[2024-01-25] MEDS: SODIUM CHLORIDE 0.9% 1,000 ML IV ONE (23:45)
[2024-01-25 23:56] LABS: Basophils % (A) 0 %; Eosinophils % (A) 0 %; HCT 33.4 % (34.0-46.0); HGB 10.7 gm/dL (11.4-16.0); Lymphocytes # (A) 0.7 k/uL (1.0-4.8); Lymphocytes % (A) 6 %; MCH 29.4 pg (25.0-35.0); MCHC 32.2 g/dL (31.0-37.0); MCV 91.2 fL (80.0-100.0); Mean Platelet Volume 8.8; Monocytes # (A) 0.8 k/uL (0-1.0); Monocytes % (A) 7 %; Neutrophils # (A) 10.6 k/uL (1.3-7.7); Neutrophils % (A) 85 %; Platelet Count 173 k/uL (150-450); RBC 3.66 m/uL (3.80-5.40); RDW 13.7 % (11.5-15.5); WBC 12.4 k/uL (3.8-10.6)
--- NOTE | 2024-01-25 23:58 | ED ---
Fever HPI - General Chief Complaint: Fever Stated Complaint: Fever, Time Seen by Provider: 01/25/24 22:13 Source: patient Mode of arrival: ambulatory Limitations: no limitations - History of Present Illness Initial Comments: 33-year-old female who is 3 weeks who presents emergency department with fever. Dates that she started having a fever yesterday. She has been doing some Motrin and Tylenol alternating for fever control however it has not been helping. She denies any nasal congestion, sore throat or ear pain. No cough or shortness of breath. No abdominal pain. Denies any dysuria, hematuria or difficulty voiding. Denies diarrhea. Continues to have some vaginal bleeding however states that it is not gotten any worse or heavier since her C- section. incision looks normal. She was seen at urgent care who d irected her to come to the emergency department. - Related Data Home Medications Medication Instructions Recorded Confirmed Acetaminophen Tab [Tylenol] 1,000 mg PO Q6HR PRN 01/27/24 01/27/24 Ibuprofen [Motrin] 600 mg PO Q8HR PRN 01/27/24 01/27/24 Previous Rx's Medication Instructions Recorded Ascorbic Acid [Vitamin C] 250 mg PO DAILY #60 tablet 01/30/24 Ciprofloxacin HCl [Cipro] 500 mg PO Q12HR 10 Days #20 tab 01/30/24 Cyanocobalamin [Vitamin B-12] 1,000 mcg PO DAILY #60 tablet 01/30/24 Ferrous Sulfate [Feosol] 325 mg PO DAILY #60 tab 01/30/24 Allergies Allergy/AdvReac Type Severity Reaction Status Date / Time No Known Allergies Allergy Verified 01/27/24 11:14 Review of Systems ROS Statement: Those systems with pertinent positive or pertinent negative responses have been documented in the HPI. ROS Other: All systems not noted in ROS Statement are negative. Past Medical History Past Medical History: Liver Disease Additional Past Medical History / Comment(s): cholecystitis, pancreatitis History of Any Multi-Drug Resistant Organisms: None Reported Past Surgical History: Section, Cholecystectomy Additional Past Surgical History / Comment(s): princess 04/2019, ERCP 06/2019 Past Anesthesia/Blood Transfusion Reactions: No Reported Reaction Additional Past Anesthesia/Blood Transfusion Reaction / Comment(s): no hx blood transfusion Past Psychological History: No Psychological Hx Reported Smoking Status: Never smoker Past Alcohol Use History: None Reported Past Drug Use History: None Reported - Past Family History Mother Family Medical History: No Reported History Additional Family Medical History / Comment(s): hyperemesis Father Family Medical History: No Reported History General Exam Limitations: no limitations General appearance: alert, in no apparent distress Head exam: Present: atraumatic, normocephalic, normal inspection Eye exam: Present: normal appearance, PERRL, EOMI. Absent: scleral icterus, conjunctival injection, periorbital swelling ENT exam: Present: normal exam, mucous membranes moist Neck exam: Present: normal inspection. Absent: tenderness, meningismus, lymphadenopathy Respiratory exam: Present: normal lung sounds bilaterally. Absent: respiratory distress, wheezes, rales, rhonchi, stridor Cardiovascular Exam: Present: regular rate, tachycardia, normal heart sounds. Absent: systolic murmur, diastolic murmur, rubs, gallop, clicks GI/Abdominal exam: Present: soft, normal bowel sounds. Absent: distended, tenderness, guarding, rebound, rigid Extremities exam: Present: normal inspection, full ROM, normal capillary refill. Absent: tenderness, pedal edema, joint swelling, calf tenderness Back exam: Present: normal inspection Neurological exam: Present: alert, oriented X3, CN II-XII intact Psychiatric exam: Present: normal affect, normal mood Skin exam: Present: warm, dry, intact, normal color. Absent: rash Course Vital Signs 01/25/24 01/26/24 01/26/24 22:03 01:10 01:52 Temperature 102.8 F H 97.6 F Pulse Rate 149 H 98 Respiratory 22 22 Rate Blood Pressure 111/60 97/59 O2 Sat by Pulse 98 100 Oximetry 01/26/24 04:41 Temperature Pulse Rate 101 H Respiratory 18 Rate Blood Pressure 111/67 O2 Sat by Pulse 99 Oximetry Medical Decision Making - Medical Decision Making Was pt. sent in by a medical professional or institution (, PA, WALLPAPER REMOVER STEAM, urgent care, hospital, or [facility]...) When possible be specific @ -No Did you speak to anyone other than the patient for history (EMS, parent, family, police, friend...)? What history was obtained from this source @ -No Did you review nursing and triage notes (agree or disagree)? Why? @ -I reviewed and agree with nursing and triage notes Were old charts reviewed (outside hosp., previous admission, EMS record, old EKG, old radiological studies, urgent care reports/EKG's, [facility] records)? Report findings @ -No old charts were reviewed Differential Diagnosis (chest pain, altered mental status, abdominal pain women, abdominal pain men, vaginal bleeding, weakness, fever, dyspnea, syncope, headache, dizziness, GI bleed, back pain, seizure, CVA, palpatations, mental health, musculoskeletal)? @ -Differential Fever: Pneumonia, viral URI, endocarditis, myocarditis, pericarditis, otitis, sinusitis, peritonsillar Abscess, retropharyngeal Abscess, epiglottitis, peritonitis, appendicitis, Maira cystitis, diverticulitis, hepatitis, colitis, UTI, PID, TOA, pyelonephritis, prostatitis, epididymitis, meningitis, encephalitis, pulmonary embolism, CVA, thyroid storm, pancreatitis, adrenal crisis, cavernous sinus thrombosis, this is not meant to be an all-inclusive list. EKG interpreted by me (3pts min.). @ -Not done X-rays interpreted by me (1pt min.). @ -None done CT interpreted by me (1pt min.). @ -None done U/S interpreted by me (1pt. min.). @ -Yes and demonstrates no findings for infection What testing was considered but not performed or refused? (CT, X-rays, U/S, labs)? Why? @ -None What meds were considered but not given or refused? Why? @ -None Did you discuss the management of the patient with other professionals (professionals i.e. , PA, WALLPAPER REMOVER STEAM, lab, RT, psych nurse, social professionals, header set up operator, teacher, affirmative action officer, returned case inspector)? Give summary @ -No Was smoking cessation discussed for >3mins.? @ -No Was critical care preformed (if so, how long)? @ -No Were there social determinants of health that impacted care today? How? (Homelessness, low income, unemployed, alcoholism, drug addiction, transportation, low edu. Level, literacy, decrease access to med. care, correction, rehab)? @ -No Was there de-escalation of care discussed even if they declined (Discuss DNR or withdrawal of care, Hospice)? DNR status @ -No What co-morbidities impacted this encounter? (DM, HTN, Smoking, COPD, CAD, Cancer, CVA, ARF, Chemo, Hep., AIDS, mental health diagnosis, sleep apnea, morbid obesity)? @ -None Was patient admitted / discharged? Hospital course, mention meds given and route, prescriptions, significant lab abnormalities, going to OR and other perti ne info. @ -Upon arrival patient seen and evaluated in room 20. Thorough history and physical exam was performed. IV access was established. Laboratory studies are conducted. Patient is given normal saline fluid hydration. Patient is dosed antibiotics while awaiting identification of the source of infection. Laboratory studies demonstrate that the patient has a UTI. She is reevaluated. Heart rate has markedly improved to the mid 90s. She has no increased work of breathing. Patient will be discharged home on antibiotics. Instructed to take the medication as directed. Follow-up with her BUDGET RECORD CLERK to ensure clearance of the infection and return for any new or worsening symptoms. Patient agreeable plan was discharged in stable condition home Undiagnosed new problem with uncertain prognosis? @ -No Drug Therapy requiring intensive monitoring for toxicity (Heparin, Nitro, Insulin, Cardizem)? @ -No Were any procedures done? @ -No Diagnosis/symptom? @ -Acute pyrexia, acute UTI, tachycardia, leukocytosis, status post Acute, or Chronic, or Acute on Chronic? @ -Acute Uncomplicated (without systemic symptoms) or Complicated (systemic symptoms)? @ -Complicated Side effects of treatment? @ -No Exacerbation, Progression, or Severe Exacerbation? @ -No Poses a threat to life or bodily function? How? (Chest pain, [place], [place], pneumonia, PE, COPD, DKA, ARF, appy, cholecystitis, CVA, Diverticulitis, Homicidal, Suicidal, threat to staff... and all critical care pts) @ -No - Lab Data Result diagrams: 01/25/24 23:25 01/25/24 23:25 Lab Results 01/25/24 01/25/24 01/25/24 Range/Units 23:25 23:25 23:25 WBC 12.4 H (3.8-10.6) k/uL RBC 3.66 L (3.80-5.40) m/uL Hgb 10.7 L (11.4-16.0) gm/dL Hct 33.4 L (34.0-46.0) % MCV 91.2 (80.0-100.0) fL MCH 29.4 (25.0-35.0) pg MCHC 32.2 (31.0-37.0) g/dL RDW 13.7 (11.5-15.5) % Plt Count 173 (150-450) k/uL MPV 8.8 Neutrophils % 85 % Lymphocytes % 6 % Monocytes % 7 % Eosinophils % 0 % Basophils % 0 % Neutrophils # 10.6 H (1.3-7.7) k/uL Lymphocytes # 0.7 L (1.0-4.8) k/uL Monocytes # 0.8 (0-1.0) k/uL Eosinophils # 0.0 (0-0.7) k/uL Basophils # 0.0 (0-0.2) k/uL Sodium 137 (137-145) mmol/L Potassium 3.3 L (3.5-5.1) mmol/L Chloride 107 (98-107) mmol/L Carbon Dioxide 20 L (22-30) mmol/L Anion Gap 10 mmol/L BUN 19 H (7-17) mg/dL Creatinine 1.03 (0.52-1.04) mg/dL Est GFR (CKD-EPI)AfAm 83 (>60 ml/min/1.73 sqM) Est GFR (CKD-EPI)NonAf 72 (>60 ml/min/1.73 sqM) Glucose 106 H (74-99) mg/dL Plasma Lactic Acid Librado (0.7-2.0) mmol/L Calcium 8.7 (8.4-10.2) mg/dL Total Bilirubin 1.0 (0.2-1.3) mg/dL AST 40 H (14-36) U/L ALT 38 H (4-34) U/L Alkaline Phosphatase 132 H (38-126) U/L Total Protein 6.6 (6.3-8.2) g/dL Albumin 3.8 (3.5-5.0) g/dL HCG, Quant mIU/mL Urine Color Urine Appearance (Clear) Urine pH (5.0-8.0) Ur Specific [place] (1.001-1.035) Urine Protein (Negative) Urine Glucose (UA) (Negative) Urine Ketones (Negative) Urine Blood (Negative) Urine Nitrite (Negative) Urine Bilirubin (Negative) Urine Urobilinogen (<2.0) mg/dL Ur Leukocyte Esterase (Negative) Urine RBC (0-5) /hpf Urine WBC (0-5) /hpf Urine WBC Clumps (None) /hpf Ur Squamous Epith Cells (0-4) /hpf Urine Bacteria (None) /hpf Hyaline Casts (0-2) /lpf Urine Mucus (None) /hpf Urine HCG, Qual (Not Detectd) Heterophile Antibody Negative (Negative) Influenza Type A (PCR) (Not Detectd) Influenza Type B (PCR) (Not Detectd) RSV (PCR) (Not Detectd) SARS-CoV-2 (PCR) (Not Detectd) Group A Strep (PCR) (Not Detectd) 01/25/24 01/25/24 01/25/24 Range/Units 23:25 23:25 23:25 WBC (3.8-10.6) k/uL RBC (3.80-5.40) m/uL Hgb (11.4-16.0) gm/dL Hct (34.0-46.0) % MCV (80.0-100.0) fL MCH (25.0-35.0) pg MCHC (31.0-37.0) g/dL RDW (11.5-15.5) % Plt Count (150-450) k/uL MPV Neutrophils % % Lymphocytes % % Monocytes % % Eosinophils % % Basophils % % Neutrophils # (1.3-7.7) k/uL Lymphocytes # (1.0-4.8) k/uL Monocytes # (0-1.0) k/uL Eosinophils # (0-0.7) k/uL Basophils # (0-0.2) k/uL Sodium (137-145) mmol/L Potassium (3.5-5.1) mmol/L Chloride (98-107) mmol/L Carbon Dioxide (22-30) mmol/L Anion Gap mmol/L BUN (7-17) mg/dL Creatinine (0.52-1.04) mg/dL Est GFR (CKD-EPI)AfAm (>60 ml/min/1.73 sqM) Est GFR (CKD-EPI)NonAf (>60 ml/min/1.73 sqM) Glucose (74-99) mg/dL Plasma Lactic Acid Librado 0.9 (0.7-2.0) mmol/L Calcium (8.4-10.2) mg/dL Total Bilirubin (0.2-1.3) mg/dL AST (14-36) U/L ALT (4-34) U/L Alkaline Phosphatase (38-126) U/L Total Protein (6.3-8.2) g/dL Albumin (3.5-5.0) g/dL HCG, Quant mIU/mL Urine Color Urine Appearance (Clear) Urine pH (5.0-8.0) Ur Specific [place] (1.001-1.035) Urine Protein (Negative) Urine Glucose (UA) (Negative) Urine Ketones (Negative) Urine Blood (Negative) Urine Nitrite (Negative) Urine Bilirubin (Negative) Urine Urobilinogen (<2.0) mg/dL Ur Leukocyte Esterase (Negative) Urine RBC (0-5) /hpf Urine WBC (0-5) /hpf Urine WBC Clumps (None) /hpf Ur Squamous Epith Cells (0-4) /hpf Urine Bacteria (None) /hpf Hyaline Casts (0-2) /lpf Urine Mucus (None) /hpf Urine HCG, Qual (Not Detectd) Heterophile Antibody (Negative) Influenza Type A (PCR) Not Detected (Not Detectd) Influenza Type B (PCR) Not Detected (Not Detectd) RSV (PCR) Not Detected (Not Detectd) SARS-CoV-2 (PCR) Not Detected (Not Detectd) Group A Strep (PCR) NOT DETECTED (Not Detectd) 01/25/24 01/25/24 01/25/24 Range/Units 23:25 23:46 23:46 WBC (3.8-10.6) k/uL RBC (3.80-5.40) m/uL Hgb (11.4-16.0) gm/dL Hct (34.0-46.0) % MCV (80.0-100.0) fL MCH (25.0-35.0) pg MCHC (31.0-37.0) g/dL RDW (11.5-15.5) % Plt Count (150-450) k/uL MPV Neutrophils % % Lymphocytes % % Monocytes % % Eosinophils % % Basophils % % Neutrophils # (1.3-7.7) k/uL Lymphocytes # (1.0-4.8) k/uL Monocytes # (0-1.0) k/uL Eosinophils # (0-0.7) k/uL Basophils # (0-0.2) k/uL Sodium (137-145) mmol/L Potassium (3.5-5.1) mmol/L Chloride (98-107) mmol/L Carbon Dioxide (22-30) mmol/L Anion Gap mmol/L BUN (7-17) mg/dL Creatinine (0.52-1.04) mg/dL Est GFR (CKD-EPI)AfAm (>60 ml/min/1.73 sqM) Est GFR (CKD-EPI)NonAf (>60 ml/min/1.73 sqM) Glucose (74-99) mg/dL Plasma Lactic Acid Librado (0.7-2.0) mmol/L Calcium (8.4-10.2) mg/dL Total Bilirubin (0.2-1.3) mg/dL AST (14-36) U/L ALT (4-34) U/L Alkaline Phosphatase (38-126) U/L Total Protein (6.3-8.2) g/dL Albumin (3.5-5.0) g/dL HCG, Quant <2.4 mIU/mL Urine Color Yellow Urine Appearance Cloudy H (Clear) Urine pH 6.0 (5.0-8.0) Ur Specific [place] 1.026 (1.001-1.035) Urine Protein 3+ H (Negative) Urine Glucose (UA) Negative (Negative) Urine Ketones Negative (Negative) Urine Blood Large H (Negative) Urine Nitrite Negative (Negative) Urine Bilirubin Negative (Negative) Urine Urobilinogen 2.0 (<2.0) mg/dL Ur Leukocyte Esterase Large H (Negative) Urine RBC 78 H (0-5) /hpf Urine WBC >182 H (0-5) /hpf Urine WBC Clumps Occasional H (None) /hpf Ur Squamous Epith Cells 1 (0-4) /hpf Urine Bacteria Many H (None) /hpf Hyaline Casts 52 H (0-2) /lpf Urine Mucus Many H (None) /hpf Urine HCG, Qual Detected (Not Detectd) Heterophile Antibody (Negative) Influenza Type A (PCR) (Not Detectd) Influenza Type B (PCR) (Not Detectd) RSV (PCR) (Not Detectd) SARS-CoV-2 (PCR) (Not Detectd) Group A Strep (PCR) (Not Detectd) Disposition Clinical Impression: Fever, Tachycardia, UTI (urinary tract infection) Disposition: HOME SELF-CARE Condition: Stable Instructions (If sedation given, give patient instructions): Urinary Tract Infection in Women (DC) Additional Instructions: Alternate taking Motrin with Tylenol every 4 hours. Follow-up with your BUDGET RECORD CLERK as directed. Take the antibiotic as directed and return for any new or worsening symptoms Is patient prescribed a controlled substance at d/c from ED?: No Referrals: Eliezer Medley DO [Primary Care Provider] - 1-2 days Time of Disposition: 04:31
[2024-01-26 00:11] LABS: ALT 38 U/L (4-34); AST 40 U/L (14-36); African American GFR (CKD) 83 (>60 ml/min/1.73 sqM); Albumin 3.8 g/dL (3.5-5.0); Alkaline Phosphatase 132 U/L (38-126); Anion Gap 10 mmol/L; Blood Urea Nitrogen 19 mg/dL (7-17); Calcium 8.7 mg/dL (8.4-10.2); Carbon Dioxide 20 mmol/L (22-30); Chloride 107 mmol/L (98-107); Glucose 106 mg/dL (74-99); Non-African American GFR(CKD) 72 (>60 ml/min/1.73 sqM); Potassium 3.3 mmol/L (3.5-5.1); Sodium 137 mmol/L (137-145); Total Protein 6.6 g/dL (6.3-8.2)
[2024-01-26 01:01] LABS: Appearance,Urine Cloudy (Clear); Bacteria,Urine Many /hpf; Bilirubin,Urine Negative (Negative); Blood,Urine Large (Negative); Color,Urine Yellow; Glucose,Urine (UA) Negative (Negative); Hyaline Casts,Urine 52 /lpf (0-2); Ketones,Urine Negative (Negative); Leukocyte Esterase,Urine Large (Negative); Mucus,Urine Many /hpf; Nitrite,Urine Negative (Negative); Protein,Urine 3+ (Negative); RBC,Urine 78 /hpf (0-5); Specific Gravity,Urine 1.026 (1.001-1.035); Squamous Epithelial Cell,Urine 1 /hpf (0-4); WBC,Urine >182 /hpf (0-5)
[2024-01-26 01:52] VITALS: TEMP 97.6
[2024-01-26] MEDS: cefTRIAXone IN SWFI 1,000 MG/10 ML SYRINGE IVP STA (01:52)
[2024-01-26] MEDS: SODIUM CHLORIDE 0.9% 1,000 ML IV STA (02:47)
[2024-01-26] MEDS: IBUPROFEN 600 MG TAB PO STA (03:14)
[2024-01-26 04:43] VITALS: BP 111/67; PULSE 101; RESP 18
--- NOTE | 2024-02-08 13:34 | US ---
EXAM: US Pelvis Transvaginal CLINICAL HISTORY: ITS.REASON US Reason: fever, 3weeks TECHNIQUE: Real-time transvaginal pelvic ultrasound with image documentation. Transvaginal imaging was used for better evaluation of the endometrium and adnexa. COMPARISON: None. FINDINGS: Uterus/cervix:Anteverted uterus measures 10.2 x 6.4 x 7.4 cm in size. Heterogeneously echogenic endometrial stripe thickness: 17 mm. No myometrial mass. Right ovary: 2.8 x 1.7 x 3.3 cm. No mass. Normal blood flow. Left ovary: 3.4 x 1.9 x 1.9 cm. A1.2 x 1.2 cm anechoic structure, likely a dominant follicular cyst. No solid mass. Normal blood flow. Free fluid:No free fluid. Bladder: Empty bladder which cannot be evaluated with this probe. Other findings:Bilateral adnexa obscured by overlying bowel gas.. IMPRESSION: Endometrium: 17 mm thickened, heterogenous areas seen within. An anteverted post gravid mildly enlarged uterus. A1.2 cm left ovarian follicular cyst. MTDD
== END 2024-01-26 04:43 | disposition home or self-care (01) ==
LOC: EC 21:38
DX: O86.20 Urinary tract infection following delivery, unspecified (principal); N39.0 Urinary tract infection, site not specified; O90.89 Other complications of the puerperium, not elsewhere classified; R00.0 Tachycardia, unspecified
CPT/HCPCS: 36415; 87651; 80053; 83605; 85025; 86308; 81001; 81025; 84702; 87040 ×2; 87077; 87186; 87636; 71046; 93975; 76830; 99284; 96374; 96361 ×5; J0696

== ENCOUNTER 2024-01-27 09:19 | Inpatient (IN) | payer MEDICAID, OTHER ==
--- NOTE | 2024-01-27 10:27 | ED ---
General Adult HPI - General Chief complaint: Recheck/Abnormal Lab/Rx Stated complaint: bacteria in blood Time Seen by Provider: 01/27/24 09:30 Source: patient, family, RN notes reviewed Mode of arrival: ambulatory Limitations: no limitations - History of Present Illness Initial comments: This is a 33-year-old female presents emergency department chief complaint of bacteremia. Patient states that she was informed by her primary care provider this morning to report to the emergency department due to positive blood culture findings that completed on 01/25/2024. She was discharged home on Thursday with a urinary tract infection and antibiotics. Patient states that over the past week she has been experiencing fevers, intermittent nausea and vomiting, increased urinary frequency and urgency. Currently patient is denying abdominal pain. Naty montiel had a recent on 01/01/2024. - Related Data Home Medications Medication Instructions Recorded Confirmed Acetaminophen Tab [Tylenol Tab] 1,000 mg PO Q6HR PRN 01/27/24 01/27/24 Cephalexin [Keflex] 500 mg PO DIRECTED 01/27/24 01/27/24 Ibuprofen [Motrin] 600 mg PO Q8HR PRN 01/27/24 01/27/24 Allergies Allergy/AdvReac Type Severity Reaction Status Date / Time No Known Allergies Allergy Verified 01/27/24 11:14 Review of Systems ROS Statement: Those systems with pertinent positive or pertinent negative responses have been documented in the HPI. ROS Other: All systems not noted in ROS Statement are negative. Past Medical History Past Medical History: Liver Disease Additional Past Medical History / Comment(s): cholecystitis, pancreatitis History of Any Multi-Drug Resistant Organisms: None Reported Past Surgical History: Section, Cholecystectomy Additional Past Surgical History / Comment(s): princess 04/2019, ERCP 06/2019 Past Anesthesia/Blood Transfusion Reactions: No Reported Reaction Additional Past Anesthesia/Blood Transfusion Reaction / Comment(s): no hx blood transfusion Past Psychological History: No Psychological Hx Reported Smoking Status: Never smoker Past Alcohol Use History: None Reported Past Drug Use History: None Reported - Past Family History Mother Family Medical History: No Reported History Additional Family Medical History / Comment(s): hyperemesis Father Family Medical History: No Reported History General Exam Limitations: no limitations General appearance: alert, in no apparent distress Head exam: Present: atraumatic, normocephalic, normal inspection Eye exam: Present: normal appearance, PERRL, EOMI. Absent: scleral icterus, conjunctival injection, periorbital swelling ENT exam: Present: normal exam, mucous membranes moist Neck exam: Present: normal inspection. Absent: tenderness, meningismus, lymphadenopathy Respiratory exam: Present: normal lung sounds bilaterally. Absent: respiratory distress, wheezes, rales, rhonchi, stridor Cardiovascular Exam: Present: regular rate, normal rhythm, normal heart sounds. Absent: systolic murmur, diastolic murmur, rubs, gallop, clicks GI/Abdominal exam: Present: soft, normal bowel sounds. Absent: distended, tenderness, guarding, rebound, rigid Extremities exam: Present: normal inspection, full ROM, normal capillary refill. Absent: tenderness, pedal edema, joint swelling, calf tenderness Back exam: Present: normal inspection Neurological exam: Present: alert, oriented X3, CN II-XII intact Psychiatric exam: Present: normal affect, normal mood Skin exam: Present: warm, dry, intact, normal color. Absent: rash Course Vital Signs 01/27/24 01/27/24 01/27/24 09:24 11:37 13:23 Temperature 99.3 F 102.5 F H Pulse Rate 110 H 77 Respiratory 18 16 Rate Blood Pressure 124/80 114/72 O2 Sat by Pulse 98 96 Oximetry Medical Decision Making - Medical Decision Making Was pt. sent in by a medical professional or institution (RASHEL Chaudhary, READING RECOVERY TEACHER, urgent care, hospital, or care home...) When possible be specific @ -No Did you speak to anyone other than the patient for history (EMS, parent, family, police, friend...)? What history was obtained from this source @ -No Did you review nursing and triage notes (agree or disagree)? Why? @ -I reviewed and agree with nursing and triage notes Were old charts reviewed (outside hosp., previous admission, EMS record, old EKG, old radiological studies, urgent care reports/EKG's, care home records)? Report findings @ -I reviewed the patient's chart note from 01/25/2024 in the emergency department where she was discharged home and diagnosed with a urinary tract infection and sent a prescription for antibiotics. Additionally, I reviewed patient's positive blood culture which grew gram-negative bacteria. Differential Diagnosis (chest pain, altered mental status, abdominal pain women, abdominal pain men, vaginal bleeding, weakness, fever, dyspnea, syncope, headache, dizziness, GI bleed, back pain, seizure, CVA, palpatations, mental health, musculoskeletal)? @ -Bacteremia, urinary tract infection, pyelonephritis, fever, this list is not all inclusive. EKG interpreted by me (3pts min.). @ -None X-rays interpreted by me (1pt min.). @ -None done CT interpreted by me (1pt min.). @ -None done U/S interpreted by me (1pt. min.). @ -None done What testing was considered but not performed or refused? (CT, X-rays, U/S, labs)? Why? @ -None What meds were considered but not given or refused? Why? @ -Antibiotics including Ancef were considered but not given due to orders placed by internal medicine team for an alternative antibiotic. Did you discuss the management of the patient with other professionals (professionals i.e. , PA, READING RECOVERY TEACHER, lab, RT, psych nurse, social work administrator, jewel setter, teacher, traffic officer, caseworker)? Give summary @ -[facility] physicians groupJamie, who is agreement with admission with patient. Recommend patient starts on 2gm of Ancef daily. Was smoking cessation discussed for >3mins.? @ -No Was critical care preformed (if so, how long)? @ -No Were there social determinants of health that impacted care today? How? (Homelessness, low income, unemployed, alcoholism, drug addiction, transportation, low edu. Level, literacy, decrease access to med. care, detention, rehab)? @ -No Was there de-escalation of care discussed even if they declined (Discuss DNR or withdrawal of care, Hospice)? DNR status @ -No What co-morbidities impacted this encounter? (DM, HTN, Smoking, COPD, CAD, Cancer, CVA, ARF, Chemo, Hep., AIDS, mental health diagnosis, sleep apnea, morbi d obesity)? @ -None Was patient admitted / discharged? Hospital course, mention meds given and route , prescriptions, significant lab abnormalities, going to OR and other pertinent info. @ -Admitted. Is a 33-year-old female who presents emergency department chief complaint of bacteremia. On examination patient's abdomen is soft and nontender, vitals are stable upon arrival. Reviewed patient's previous lab results and blood cultures which were positive for gram-negative bacteria. Internal medicine consulted which has been accepted for admission. Patient started on IV fluids and antibiotics. Case discussed with Dr. Floyd Undiagnosed new problem with uncertain prognosis? @ -No Drug Therapy requiring intensive monitoring for toxicity (Heparin, Nitro, Insulin, Cardizem)? @ -No Were any procedures done? @ -No Diagnosis/symptom? @ -Bacteremia, urinary tract infection Acute, or Chronic, or Acute on Chronic? @ -Acute Uncomplicated (without systemic symptoms) or Complicated (systemic symptoms)? @ -Uncomplicated Side effects of treatment? @ -No Exacerbation, Progression, or Severe Exacerbation? @ -No Poses a threat to life or bodily function? How? (Chest pain, [place], [place], pneumonia, PE, COPD, DKA, ARF, appy, cholecystitis, CVA, Diverticulitis, Homicidal, Suicidal, threat to staff... and all critical care pts) @ -No - Lab Data Result diagrams: 01/27/24 09:50 Lab Results 01/27/24 01/27/24 Range/Units 09:50 09:50 Sodium 140 (137-145) mmol/L Potassium 4.1 (3.5-5.1) mmol/L Chloride 113 H (98-107) mmol/L Carbon Dioxide 22 (22-30) mmol/L Anion Gap 5 mmol/L BUN 14 (7-17) mg/dL Creatinine 0.74 (0.52-1.04) mg/dL Est GFR (CKD-EPI)AfAm >90 (>60 ml/min/1.73 sqM) Est GFR (CKD-EPI)NonAf >90 (>60 ml/min/1.73 sqM) Glucose 93 (74-99) mg/dL Plasma Lactic Acid Librado 0.9 (0.7-2.0) mmol/L Calcium 8.8 (8.4-10.2) mg/dL Total Bilirubin 0.8 (0.2-1.3) mg/dL AST 42 H (14-36) U/L ALT 33 (4-34) U/L Alkaline Phosphatase 126 (38-126) U/L Total Protein 6.4 (6.3-8.2) g/dL Albumin 3.4 L (3.5-5.0) g/dL Disposition Clinical Impression: Bacteremia, UTI (urinary tract infection) Disposition: ADMITTED IP TO THIS [facility] Condition: Good Is patient prescribed a controlled substance at d/c from ED?: No Decision to Admit Reason: Admit from EC Decision Date: 01/27/24 Decision Time: 10:55
[2024-01-27 10:30] LABS: ALT 33 U/L (4-34); African American GFR (CKD) >90 (>60 ml/min/1.73 sqM); Albumin 3.4 g/dL (3.5-5.0); Anion Gap 5 mmol/L; Blood Urea Nitrogen 14 mg/dL (7-17); Calcium 8.8 mg/dL (8.4-10.2); Carbon Dioxide 22 mmol/L (22-30); Chloride 113 mmol/L (98-107); Glucose 93 mg/dL (74-99); Non-African American GFR(CKD) >90 (>60 ml/min/1.73 sqM); Sodium 140 mmol/L (137-145); Total Bilirubin 0.8 mg/dL (0.2-1.3); Total Protein 6.4 g/dL (6.3-8.2)
[2024-01-27 10:32] LABS: Potassium 4.1 mmol/L (3.5-5.1)
[2024-01-27 10:33] LABS: AST 42 U/L (14-36); Alkaline Phosphatase 126 U/L (38-126)
[2024-01-27] MEDS ORDERED: ACETAMINOPHEN TAB 325 MG TAB PO PRN (10:57)
[2024-01-27] MEDS ORDERED: NALOXONE 0.4 MG/ML 1 ML VIAL IV PRN (10:57)
--- NOTE | 2024-01-27 11:42 | P.HPIM ---
History of Present Illness H&P Date: 01/27/24 Patient is a 33-year-old female with no significant past medical history and who recently had a done 3 weeks ago who initially presented to the ED on 01/25/2024 with UTI symptoms of dysuria and increased frequency. She was discharged on Keflex. She was called back to return to the ED as a blood cultures were positive for gram-negative bacilli. Patient states that she never started taking her antibiotics. She states that she continues to have dysuria and increased frequency. She is denying any fever or chills. She states that during labor she had a Antoine catheter placed.. Patient states that she is not breast-feeding. In the ED temperature was 99.3, heart rate 110 and her labs are unremarkable. ROS: 10 ROS reviewed and are negative except as noted in HPI Physical exam General: [Alert and oriented, well nourished, no acute distress]. Eye: [PERRL, EOMI, normal conjunctiva]. HENT: [Normocephalic, clear tympanic membranes, normal hearing, moist oral mucosa, no scleral icterus, no sinus tenderness]. Neck: [Supple, non-tender, no carotid bruits, no JVD, no lymphadenopathy]. Lungs: [Clear to auscultation and percussion, non-labored respiration]. Heart: [Normal rate, regular rhythm, no murmur, gallop or edema]. Abdomen: [Soft, non-tender, non-distended, normal bowel sounds, no masses]. Musculoskeletal: [Normal range of motion and strength, no tenderness or swelling]. Skin: [Skin is warm, dry and pink, no rashes or lesions]. Neurologic: [Awake, alert, and oriented X3, CN II-XII intact]. Psychiatric: [Cooperative, appropriate mood and affect]. Assessment and plan UTI likely due Antoine catheter which was placed during labor Patient does not meet sepsis criteria Gram-negative bacilli bacteremia Blood culture 01/25/2024 molecular testing was done and the E. coli appears to be sensitive to Rocephin Consult infectious disease Will start the patient on Rocephin 2 g daily Recent Patient states that baby is doing well Patient is not breast-feeding DVT prophylaxis: Encourage early ambulation Past Medical History Past Medical History: Liver Disease Additional Past Medical History / Comment(s): cholecystitis, pancreatitis History of Any Multi-Drug Resistant Organisms: None Reported Past Surgical History: Section, Cholecystectomy Additional Past Surgical History / Comment(s): princess 04/2019, ERCP 06/2019 Past Anesthesia/Blood Transfusion Reactions: No Reported Reaction Additional Past Anesthesia/Blood Transfusion Reaction / Comment(s): no hx blood transfusion Past Psychological History: No Psychological Hx Reported Smoking Status: Never smoker Past Alcohol Use History: None Reported Past Drug Use History: None Reported - Past Family History Mother Family Medical History: No Reported History Additional Family Medical History / Comment(s): hyperemesis Father Family Medical History: No Reported History Medications and Allergies Home Medications Medication Instructions Recorded Confirmed Type Acetaminophen Tab [Tylenol Tab] 1,000 mg PO Q6HR PRN 01/27/24 01/27/24 History Cephalexin [Keflex] 500 mg PO DIRECTED 01/27/24 01/27/24 History Ibuprofen [Motrin] 600 mg PO Q8HR PRN 01/27/24 01/27/24 History Allergies Allergy/AdvReac Type Severity Reaction Status Date / Time No Known Allergies Allergy Verified 01/27/24 11:14 Physical Exam Osteopathic Statement: *. No significant issues noted on an osteopathic structural exam other than those noted in the History and Physical/Consult. Vitals: Vital Signs Temp Pulse Resp BP Pulse Ox 01/27/24 11:37 77 16 114/72 96 01/27/24 09:24 99.3 F 110 H 18 124/80 98 Intake and Output 01/26/24 01/27/24 01/27/24 22:59 06:59 14:59 Other: Weight 65.771 kg Results CBC & Chem 7: 01/27/24 09:50 Labs: Abnormal Lab Results - Last 24 Hours (Table) 01/27/24 Range/Units 09:50 Chloride 113 H (98-107) mmol/L AST 42 H (14-36) U/L Albumin 3.4 L (3.5-5.0) g/dL
[2024-01-27] MEDS: SODIUM CHLORIDE 0.9% 1,000 ML IV STA (11:59)
[2024-01-27 12:03] LABS: INR 0.9 (<1.2); Partial Thromboplastin Time 30.5 sec (22.0-30.0)
[2024-01-27] MEDS: IBUPROFEN 400 MG TAB PO PRN (13:37)
[2024-01-27 15:38] LABS: Basophils % (A) 0 %; Eosinophils % (A) 0 %; HCT 31.1 % (34.0-46.0); HGB 9.8 gm/dL (11.4-16.0); Lymphocytes # (A) 0.9 k/uL (1.0-4.8); Lymphocytes % (A) 17 %; MCH 29.3 pg (25.0-35.0); MCHC 31.6 g/dL (31.0-37.0); MCV 92.7 fL (80.0-100.0); Monocytes # (A) 0.2 k/uL (0-1.0); Monocytes % (A) 5 %; Neutrophils % (A) 75 %; Platelet Count 180 k/uL (150-450); RBC 3.35 m/uL (3.80-5.40); WBC 5.4 k/uL (3.8-10.6)
--- NOTE | 2024-01-27 16:39 | P.CONS ---
History of Present Illness - Reason for Consult Consult date: 01/27/24 UTI and bacteremia Requesting physician: Praful Fatima - Chief Complaint Fever with rigors and chills x few days - History of Present Illness Patient is a 33-year-old female with a past medical history significant for pancreatitis as well as cholecystitis recently did have a C- section presenting to the hospital initially on Thursday with fever rigors and chi lls and also having urinary burning and frequency with the patient has been diagnosed with the UTI received a dose of antibiotic and has been discharged on oral Keflex patient did have blood cultures came back positive with E. coli for the patient was advised to come back to the hospital patient on presentation to the hospital was initially afebrile subsequently spiked a fever of 102.5 F patient complaining of rigors and chills, but denies any headache or URI symptoms no chest pain or shortness of breath or cough denies having any abdominal pain still has some urinary burning and frequency patient did have a blood work with a white count of 5.4 creatinine 0.74 electrolytes has been normal blood cultures are showing E. coli with sensitivities pending patient has been empirically started on Rocephin 2 g daily infectious disease was consulted for further management of antibiotic therapy Review of Systems Positive point and negatives has been mentioned in the HPI, complete review of systems was performed and all other systems are negative Past Medical History Past Medical History: Liver Disease Additional Past Medical History / Comment(s): cholecystitis, pancreatitis History of Any Multi-Drug Resistant Organisms: None Reported Past Surgical History: Section, Cholecystectomy Additional Past Surgical History / Comment(s): princess 04/2019, ERCP 06/2019 Past Anesthesia/Blood Transfusion Reactions: No Reported Reaction Additional Past Anesthesia/Blood Transfusion Reaction / Comm: no hx blood transfusion Past Psychological History: No Psychological Hx Reported Smoking Status: Never smoker Past Alcohol Use History: None Reported Past Drug Use History: None Reported - Past Family History Mother Family Medical History: No Reported History Additional Family Medical History / Comment(s): hyperemesis Father Family Medical History: No Reported History Medications and Allergies Home Medications Medication Instructions Recorded Confirmed Type Acetaminophen Tab [Tylenol] 1,000 mg PO Q6HR PRN 01/27/24 01/27/24 History Ibuprofen [Motrin] 600 mg PO Q8HR PRN 01/27/24 01/27/24 History Ascorbic Acid [Vitamin C] 250 mg PO DAILY #60 tablet 01/30/24 Rx Ciprofloxacin HCl [Cipro] 500 mg PO Q12HR 10 Days #20 tab 01/30/24 Rx Cyanocobalamin [Vitamin B-12] 1,000 mcg PO DAILY #60 tablet 01/30/24 Rx Ferrous Sulfate [Feosol] 325 mg PO DAILY #60 tab 01/30/24 Rx Allergies Allergy/AdvReac Type Severity Reaction Status Date / Time No Known Allergies Allergy Verified 01/27/24 11:14 Physical Exam Vitals: Vital Signs Temp Pulse Resp BP Pulse Ox 01/27/24 13:23 102.5 F H 01/27/24 11:37 77 16 114/72 96 01/27/24 09:24 99.3 F 110 H 18 124/80 98 Intake and Output 01/26/24 01/27/24 01/27/24 22:59 06:59 14:59 Other: Weight 65.771 kg Middle-age female lying in bed in no distress Respiratory system unlabored breathing decreased breath sound the base Heart S1-S2 regular Abdominal soft mild left-sided tenderness Extremities no edema feet Skin no rashes, no masses palpable Patient is awake alert oriented x 3 mood and affect is normal Exam compleetd 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 coli bacteremia source is likely UTI in this patient who did have significant urinary symptoms failing outpatient oral antibiotic therapy. 2we will check ultrasound kidney bladder to make and evidence of any obstructive uropathy or stones. 3Rocephin 2 g daily while waiting for the culture to finalize. We will follow on clinical condition and cultures to further adjust medication if needed Thank you for this consultation we will follow the patient along with you Dictation was produced using [employer] dictation software. please excuse any grammatical, word or spelling errors. Time with Patient: Greater than 30
--- NOTE | 2024-01-28 08:43 | US ---
EXAMINATION TYPE: US kidneys/renal and bladder DATE OF EXAM: 01/28/2024 COMPARISON: US Liver 2019 CLINICAL INDICATION: Female, 33 years old with history of uti and bacteremia; UTI and bacteremia. EXAM MEASUREMENTS: Right Kidney: 12.3 x 5.9 x 4.3 cm Left Kidney: 12.4 x 4.7 x 5.2 cm Right Kidney: No hydronephrosis or masses seen Left Kidney: No hydronephrosis or masses seen Bladder: Appears anechoic. Bilateral Jets seen: Yes Incidental finding: spleen appears enlarged measurin.5 cm. IMPRESSION: Splenomegaly.
[2024-01-28] MEDS: ENOXAPARIN 40 MG/0.4 ML SYRINGE SQ SCH (09:42)
[2024-01-28 10:37] LABS: Basophils # (A) 0.01 X 10*3/uL (0.00-0.10); Basophils % (A) 0.2 %; Eosinophils # (A) 0.04 X 10*3/uL (0.04-0.35); Eosinophils % (A) 0.8 %; HCT 32.5 % (37.2-46.3); HGB 9.8 g/dL (12.0-15.0); Lymphocytes # (A) 1.69 X 10*3/uL (0.90-5.00); Lymphocytes % (A) 34.1 %; MCH 28.7 pg (27.0-32.0); MCHC 30.2 g/dL (32.0-37.0); Mean Platelet Volume 11.6 FL (9.5-12.2); Monocytes # (A) 0.49 X 10*3/uL (0.20-1.00); Monocytes % (A) 9.9 %; NRBC Per 100 WBC 0 X 10*3/uL (0.00-0.01); Neutrophils # (A) 2.68 X 10*3/uL (1.80-7.70); Neutrophils % (A) 54.2 %; Platelet Count 210 X 10*3/uL (140-440); RBC 3.42 X 10*6/uL (4.10-5.20); RDW 13.7 % (11.5-14.5); WBC 4.95 X 10*3/uL (4.50-10.00)
[2024-01-28 10:51] LABS: BUN/Creat Ratio 12.75 Ratio (12.00-20.00); Blood Urea Nitrogen 10.2 mg/dL (9.0-27.0); Carbon Dioxide 20.8 mmol/L (21.6-31.8); Chloride 110 mmol/L (96-109); Glucose 94 mg/dL (70-110); Potassium 3.5 mmol/L (3.5-5.5); Sodium 144 mmol/L (135-145)
[2024-01-28 10:52] LABS: ALT 26 U/L (8-44); AST 23 U/L (13-35); Albumin 3.2 g/dL (3.8-4.9); Albumin/Globulin Ratio 1.33 Ratio (1.60-3.17); Alkaline Phosphatase 124 U/L (41-126); Calcium 8.2 mg/dL (8.7-10.3); Globulin 2.4 g/dL (1.6-3.3); Total Bilirubin <0.2 mg/dL (0.3-1.2); Total Protein 5.6 g/dL (6.2-8.2)
[2024-01-28 13:03] LABS: Reticulocyte % 0.4 % (0.5-2.0)
--- NOTE | 2024-01-28 14:40 | P.PN ---
Subjective Progress Note Date: 01/28/24 Hospital course: Patient is a pleasant 33-year-old female with no significant past medical history. Recently underwent section and delivery of her second child on 01/01/2024 resulting in the of a healthy baby boy. Patient reports since her she has been doing well, but states she developed subjective fevers, chills, urinary frequency and dysuria and presented to the emergency department on 01/25/2024 where she was diagnosed with a UTI and discharged home on Keflex. On 01/27/2024 patient received notification that her blood cultures w ere positive and that she needed to return to the hospital for evaluation and admission for IV antibiotics. Upon arrival to our facility patient underwent evaluation in the emergency department. Vital signs upon arrival show blood pressure 124/80, heart rate 110, respiratory rate 18, temp 99.3 F, and SpO2 of 98% on room air. Shortly after arrival patient spiked an elevated temp of 102.5 F. Labs were completed and reviewed. CBC showing normocytic anemia with hemoglobin of 9.8. Coagulation profile showing elevated PTT of 30.5. And BMP showing hyperchloremia with chloride of 113 and otherwise normal findings. Liver profile showing elevated AST of 42. Blood cultures obtained on 01/26/2024 from her ED visit were positive for E. coli. Patient started on IV antibiotics with Rocephin and admitted under our services with consultation to infectious disease for evaluation. Physical exam: Patient seen and fully evaluated at the bedside this morning. She reports experiencing episodes of chills/rigors and diaphoresis otherwise denies any comp laints at this time. Vital signs reviewed and stable. General: Nontoxic, no distress and appears stated age. Derm: Skin warm and dry, normal coloration for ethnicity. Head: Atraumatic, normocephalic and symmetric. Eyes: EOMs intact, no lid lag, and anicteric sclera Mouth: no lip lesions, mucus membranes moist Cardiovascular: regular rate and rhythm with normal S1S2, no murmur, positive posterior tibial pulses bilaterally, and cap refill < 2 seconds. Lungs: Respirations even, regular, and unlabored on room air. Lungs CTA bilaterally, no rhonchi, no rales, no wheezing, and no accessory muscle usage. Abdominal: soft, nontender to palpation, no guarding, horizontal incision lower abdomen from recent and appears to be healing well with no surrounding erythema or drainage. Ext: ROM intact. No gross muscle atrophy, no edema, no contractures Neuro: Speech clear, face symmetrical and CN II-XII grossly intact with no noted focal neuro deficits Psych: Alert and oriented to person, place, time, and situation. Appropriate and pleasant affect. Assessment and Plan of Care: E. coli bacteremia, likely secondary to UTI however patient recently underwent section on 01/01/2024 Newly diagnosed splenomegaly and anemia High anion gap metabolic acidosis Status post section 01/01/2024 -Continue IV antibiotics with Rocephin 2 g daily. -Tylenol 650 mg every 6 hours as needed for mild pain/fever -Follow-up on repeat blood culture results -Abdominal ultrasound was completed showing splenomegaly with enlarged spleen measuring 14.5 cm. -Consult placed to hematology for evaluation. -Patient started on gentle IV fluid hydration with 0.9% normal saline at 100 cc/h Data and imaging reviewed: Abdominal ultrasound was completed showing splenomegaly with enlarged spleen measuring 14.5 cm. Vital signs reviewed. Blood pressure 143/71, heart rate 76, respiratory rate 16, temp 98.3 F, and SpO2 100% on room air. Temperature high over the past 24 hours is 102.5 F. Morning labs reviewed. CBC showing normocytic anemia with hemoglobin of 9.8. BMP showing high anion gap metabolic acidosis with chloride of 110, bicarb of 20.8, and anion gap elevated at 13.20. 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 CODE STATUS: Full code DVT prophylaxis: Lovenox Anticipated discharge date: Pending clinical course Anticipated discharge place: Home Patient was seen independently by Nurse Pracitioner. This document was prepared using [employer] dictation software. Please allow for errors in nuclear engineer, while rare they do occur. I reviewed the documentation as provided by the BRAYDON above, who is the original author of this note. I agree with the documented assessment and plan, with the following changes: none Objective - Vital Signs Vital signs: Vital Signs Temp 98.3 F 01/28/24 07:17 Pulse 76 01/28/24 07:17 Resp 16 01/28/24 07:17 BP 143/71 01/28/24 07:17 Pulse Ox 100 01/28/24 07:17 FiO2 Intake & Output 01/27/24 01/28/24 01/28/24 18:59 06:59 18:59 Intake Total 600 Balance 600 Weight 65.771 kg 65.771 kg Intake: Oral 600 Other: Voiding Method Toilet # Voids 2 - Labs CBC & Chem 7: 01/29/24 12:25 01/29/24 12:25 Labs: Abnormal Lab Results - Last 24 Hours (Table) 01/27/24 01/27/24 01/27/24 Range/Units 09:50 10:57 15:13 RBC 3.35 L (3.80-5.40) m/uL Hgb 9.8 L (11.4-16.0) gm/dL Hct 31.1 L (34.0-46.0) % Lymphocytes # 0.9 L (1.0-4.8) k/uL APTT 30.5 H (22.0-30.0) sec Chloride 113 H (98-107) mmol/L AST 42 H (14-36) U/L Albumin 3.4 L (3.5-5.0) g/dL
[2024-01-28] MEDS: IOPAMIDOL CONTRAST (ORAL USE) VIAL PO PRN (15:29)
[2024-01-28] MEDS: SODIUM CHLORIDE 0.9% 1,000 ML IV SCH (15:31)
--- NOTE | 2024-01-28 17:30 | P.CONS ---
History of Present Illness - Reason for Consult Consult date: 01/28/24 splenomegaly, anemia Requesting physician: Jamie Black - Chief Complaint positive blood cultures - History of Present Illness Ms. Millan is a 33-year-old female we have been asked to see because of splenomegaly found incidentally on imaging. Patient delivered a healthy baby 1 month ago via . This past week patient did report having fevers. She was seen in the emergency department, had pancultures performed and was sent home with antibiotics. Her blood cultures did come back positive for e-coli so, she was called to come in for IV antibiotics inpatient. Patient denies any history of big spleen or anemia prior. When she had her other child in 2019 she had a gallstone that became stuck in the duct during which required ERCP for removal, this did cause her to be jaundiced and have some stress on the liver but, denies overt diagnosis of a liver disease. Patient denies any history of malignancy or blood disorders. There is no family history of blood disorders. Patient denies nausea, vomiting, feelings of fullness in the abdomen, early satiety. She reports that she has had vaginal bleeding that is maybe a little more then she experienced with her 1st . No reported joint swellings or rash at this time. She otherwise feels well. Review of Systems 10 point ROS is neg except as stated in HPI Past Medical History Past Medical History: Liver Disease Additional Past Medical History / Comment(s): cholecystitis, pancreatitis History of Any Multi-Drug Resistant Organisms: None Reported Past Surgical History: Section, Cholecystectomy Additional Past Surgical History / Comment(s): princess 04/2019, ERCP 06/2019 Past Anesthesia/Blood Transfusion Reactions: No Reported Reaction Additional Past Anesthesia/Blood Transfusion Reaction / Comm: no hx blood transfusion Past Psychological History: No Psychological Hx Reported Additional Psychological History / Comment(s): ADD in 3rd grade, resolved per pt Smoking Status: Never smoker Past Alcohol Use History: None Reported Past Drug Use History: None Reported - Past Family History Mother Family Medical History: No Reported History Additional Family Medical History / Comment(s): hyperemesis Father Family Medical History: No Reported History Medications and Allergies Home Medications Medication Instructions Recorded Confirmed Type Acetaminophen Tab [Tylenol Tab] 1,000 mg PO Q6HR PRN 01/27/24 01/27/24 History Cephalexin [Keflex] 500 mg PO DIRECTED 01/27/24 01/27/24 History Ibuprofen [Motrin] 600 mg PO Q8HR PRN 01/27/24 01/27/24 History Allergies Allergy/AdvReac Type Severity Reaction Status Date / Time No Known Allergies Allergy Verified 01/27/24 11:14 Physical Exam Vitals: Vital Signs Temp Pulse Pulse Resp BP BP Pulse Ox 01/28/24 12:20 98.2 F 58 L 16 136/74 95 01/28/24 07:17 98.3 F 76 16 143/71 100 01/28/24 01:17 98.2 F 83 16 113/73 98 01/27/24 21:17 99.6 F 84 18 122/76 99 01/27/24 20:32 98.7 F 75 20 111/71 99 01/27/24 18:00 98.5 F 90 18 110/76 98 Intake and Output 01/28/24 01/28/24 01/28/24 06:59 14:59 22:59 Intake Total 600 Balance 600 Intake: Oral 600 Other: Voiding Method Toilet # Voids 2 - Constitutional General appearance: average body habitus, cooperative, no acute distress - EENT Eyes: anicteric sclerae, EOMI ENT: hearing grossly normal - Respiratory resp even and unlabored - Cardiovascular skin warm, well perfused leg Peripheral Edema: bilateral: None - Gastrointestinal General gastrointestinal: no absent bowel sounds, no decreased bowel sounds, no distended, no hepatomegaly, no hyperactive bowel sounds, normal bowel sounds, no organomegaly, no rigid, no scaphoid, soft, no splenomegaly, no tenderness, no umbilical hernia, no ventral hernia - Integumentary Integumentary: normal - Neurologic Neurologic: CNII-XII intact - Musculoskeletal Musculoskeletal: strength equal bilaterally - Psychiatric Psychiatric: A&O x's 3, appropriate affect, intact judgment & insight Results CBC & Chem 7: 01/28/24 06:56 01/28/24 06:56 Labs: Abnormal Lab Results - Last 24 Hours (Table) 01/28/24 01/28/24 01/28/24 Range/Units 06:56 06:56 12:40 RBC 3.42 L (4.10-5.20) X 10*6/uL Hgb 9.8 L (12.0-15.0) g/dL Hct 32.5 L (37.2-46.3) % MCHC 30.2 L (32.0-37.0) g/dL Retic Count 0.4 L (0.5-2.0) % Haptoglobin (31.2-198.0) mg/dL Chloride 110 H (96-109) mmol/L Carbon Dioxide 20.8 L (21.6-31.8) mmol/L Anion Gap 13.20 H (4.00-12.00) mmol/L Calcium 8.2 L (8.7-10.3) mg/dL Total Bilirubin <0.2 L (0.3-1.2) mg/dL Total Protein 5.6 L (6.2-8.2) g/dL Albumin 3.2 L (3.8-4.9) g/dL Albumin/Globulin Ratio 1.33 L (1.60-3.17) Ratio 01/28/24 Range/Units 12:40 RBC (4.10-5.20) X 10*6/uL Hgb (12.0-15.0) g/dL Hct (37.2-46.3) % MCHC (32.0-37.0) g/dL Retic Count (0.5-2.0) % Haptoglobin 337.0 H (31.2-198.0) mg/dL Chloride (96-109) mmol/L Carbon Dioxide (21.6-31.8) mmol/L Anion Gap (4.00-12.00) mmol/L Calcium (8.7-10.3) mg/dL Total Bilirubin (0.3-1.2) mg/dL Total Protein (6.2-8.2) g/dL Albumin (3.8-4.9) g/dL Albumin/Globulin Ratio (1.60-3.17) Ratio US - abdomen: report reviewed Assessment and Plan (1) Splenomegaly Current Visit: Yes Status: Acute Priority: High Code(s): R16.1 - SPLENOMEGALY, NOT ELSEWHERE CLASSIFIED SNOMED Code(s): 80514994 (2) Anemia Current Visit: Yes Status: Acute Priority: Medium Code(s): D64.9 - ANEMIA, UNSPECIFIED SNOMED Code(s): 309227057 Plan: Splenomegaly -CT of the abdomen and pelvis has been ordered to more closely evaluate the spleen and the surrounding organs -Splenomegaly workup including autoimmune labs, inflammatory markers ordered Anemia -Anemia workup ordered, hemolysis work up ordered -Suspect related to recent , post bleeding with acute bacteremia -Transfuse for hemoglobin less than 7. On exam pt thankfully does not look toxic. Will follow until workup is completed. Final recommendations to follow
[2024-01-28 20:42] LABS: % Iron Saturation 8.05 (12.00-45.00)
[2024-01-28 20:50] LABS: Protein, Total 5.6 g/dL (6.2-8.2)
--- NOTE | 2024-01-28 20:51 | CT ---
EXAMINATION TYPE: CT abdomen pelvis w con DATE OF EXAM: 01/28/2024 HISTORY: section x 4 weeks ago, states that she got a severe UTI from Antoine catheter CT DLP: 1143mGycm Automated Exposure Control for Dose Reduction was Utilized. CONTRAST: CT scan of the abdomen and pelvis is performed with IV Contrast, patient injected with 100 mL of Isovue 300. COMPARISON: None FINDINGS: LUNG BASES: No acute process. LIVER/GB: No significant abnormality is appreciated. PANCREAS: No significant abnormality is seen. SPLEEN: Splenic volume is upper limits of normal. No focal findings. ADRENALS: No significant abnormality is seen. KIDNEYS, URETERS AND BLADDER: There are bilateral striated nephrograms, without abnormal fluid or gas collections. These findings are consistent with uncomplicated bilateral pyelonephritis. There is no hydronephrosis or hydroureter. Urinary bladder is unremarkable. BOWEL: No dilated loops of bowel. No focal inflammation. Colonic stool volume is within normal limit s. PERITONEAL CAVITY: There is a scant volume of simple appearing fluid in the cul-de-sac. No other flui d or pneumoperitoneum. UTERUS/ADNEXA: Uterus is anteverted without flexion measuring 10.5 x 5.7 x 7.2 cm. Endometrial cavity measuring 1.2 - 1.6 cm thickness from the fundus to the cervix. The right and left ovaries are unrem arkable. LYMPH NODES: No greater than 1cm abdominal or pelvic lymph nodes are appreciated. OSSEOUS STRUCTURES: No significant abnormality is seen. OTHER: No significant additional abnormality is seen. IMPRESSION: Findings consistent with bilateral uncomplicated pyelonephritis.
[2024-01-29 11:21] LABS: Free Kappa Lt Chain Qnt, Serum 1.68 mg/dL (0.33-1.94); Free Lambda Lt Chain Qnt, Seru 2.35 mg/dL (0.57-2.63)
[2024-01-29 12:41] LABS: HCT 30.7 % (34.0-46.0); HGB 9.6 gm/dL (11.4-16.0); Hypochromasia Slight; MCH 28.8 pg (25.0-35.0); MCHC 31.3 g/dL (31.0-37.0); MCV 91.9 fL (80.0-100.0); Mean Platelet Volume 9.2; Platelet Count 228 k/uL (150-450); RBC 3.34 m/uL (3.80-5.40); RDW 13.8 % (11.5-15.5); WBC 4.4 k/uL (3.8-10.6)
[2024-01-29 12:58] LABS: African American GFR (CKD) >90 (>60 ml/min/1.73 sqM); Anion Gap 4 mmol/L; Blood Urea Nitrogen 5 mg/dL (7-17); Calcium 8.2 mg/dL (8.4-10.2); Carbon Dioxide 26 mmol/L (22-30); Chloride 110 mmol/L (98-107); Glucose 97 mg/dL (74-99); Non-African American GFR(CKD) >90 (>60 ml/min/1.73 sqM); Potassium 3.8 mmol/L (3.5-5.1); Sodium 140 mmol/L (137-145)
--- NOTE | 2024-01-29 14:53 | P.PN ---
Subjective Progress Note Date: 01/29/24 Hospital course: Patient is a pleasant 33-year-old female with no significant past medical history. Recently underwent section and delivery of her second child on 01/01/2024 resulting in the of a healthy baby boy. Patient reports since her she has been doing well, but states she developed subjective fevers, chills, urinary frequency and dysuria and presented to the emergency department on 01/25/2024 where she was diagnosed with a UTI and discharged home on Keflex. On 01/27/2024 patient received notification that her blood cultures w ere positive and that she needed to return to the hospital for evaluation and admission for IV antibiotics. Upon arrival to our facility patient underwent evaluation in the emergency department. Vital signs upon arrival show blood pressure 124/80, heart rate 110, respiratory rate 18, temp 99.3 F, and SpO2 of 98% on room air. Shortly after arrival patient spiked an elevated temp of 102.5 F. Labs were completed and reviewed. CBC showing normocytic anemia with hemoglobin of 9.8. Coagulation profile showing elevated PTT of 30.5. And BMP showing hyperchloremia with chloride of 113 and otherwise normal findings. Liver profile showing elevated AST of 42. Blood cultures obtained on 01/26/2024 from her ED visit were positive for E. coli. Patient started on IV antibiotics with Rocephin and admitted under our services with consultation to infectious disease for evaluation. Physical exam: Patient seen and fully evaluated at the bedside this morning. She reports experiencing episodes of chills/rigors and diaphoresis otherwise denies any comp laints at this time. Vital signs reviewed and stable. General: Nontoxic, no distress and appears stated age. Derm: Skin warm and dry, normal coloration for ethnicity. Head: Atraumatic, normocephalic and symmetric. Eyes: EOMs intact, no lid lag, and anicteric sclera Mouth: no lip lesions, mucus membranes moist Cardiovascular: regular rate and rhythm with normal S1S2, no murmur, positive posterior tibial pulses bilaterally, and cap refill < 2 seconds. Lungs: Respirations even, regular, and unlabored on room air. Lungs CTA bilaterally, no rhonchi, no rales, no wheezing, and no accessory muscle usage. Abdominal: soft, nontender to palpation, no guarding, horizontal incision lower abdomen from recent and appears to be healing well with no surrounding erythema or drainage. Ext: ROM intact. No gross muscle atrophy, no edema, no contractures Neuro: Speech clear, face symmetrical and CN II-XII grossly intact with no noted focal neuro deficits Psych: Alert and oriented to person, place, time, and situation. Appropriate and pleasant affect. Assessment and Plan of Care: E. coli bacteremia, likely secondary to complicated UTI however patient recently underwent section on 01/01/2024 Pyelonephritis Newly diagnosed splenomegaly and anemia High anion gap metabolic acidosis Status post section 01/01/2024 -Continue IV antibiotics with Rocephin 2 g daily. -Tylenol 650 mg every 6 hours as needed for mild pain/fever -Repeat blood cultures showing no growth to date -Abdominal ultrasound was completed showing splenomegaly with enlarged spleen measuring 14.5 cm. -Hematology oncology following, discussed plan of care with hematology WILL CALL CLERK. CT abdomen and pelvis to be obtained in addition to further hemolytic workup. -CBC showing stable normocytic anemia with hemoglobin of 9.6. ESR 65, reticuloc yte count is 0.4, and haptoglobin was 337. -Continue gentle IV fluid hydration with 0.9% normal saline at 100 cc/h -Infectious disease following. Data and imaging reviewed: Abdominal ultrasound was completed showing splenomegaly with enlarged spleen measuring 14.5 cm. Vital signs reviewed. Blood pressure 138/71, heart rate 84, respiratory rate 16, temp 98.0 F, and SpO2 of 98% on room air. Temperature high over the past 24 hours is 99.2 F. Morning labs reviewed. CBC showing stable normocytic anemia with hemoglobin of 9.6. ESR 65, reticulocyte count is 0.4, and haptoglobin was 337. Iron profile showing low iron of 26 and an iron percentage also low at 8.05 with normal ferritin and trans ferritin. BMP showing significant improvement of metabolic acidosis with chloride of 110, bicarb of 26, and anion gap of 4 this morning. CODE STATUS: Full code DVT prophylaxis: Lovenox Anticipated discharge date: Likely within the next [address]: Home Patient was seen independently by Nurse Pracitioner. This document was prepared using [employer] dictation software. Please allow for errors in central office operator, while rare they do occur. I reviewed the documentation as provided by the BRAYDON above, who is the original author of this note. I agree with the documented assessment and plan, with the following changes: none Objective - Vital Signs Vital signs: Vital Signs Temp 98.0 F 01/29/24 07:35 Pulse 84 01/29/24 07:35 Resp 16 01/29/24 01:45 BP 138/71 01/29/24 07:35 Pulse Ox 98 01/29/24 07:35 FiO2 Intake & Output 01/28/24 01/29/24 01/29/24 18:59 06:59 18:59 Intake Total 1800 Balance 1800 Intake: Intake, IV Titration 1200 Amount Sodium Chloride 0.9% 1, 1200 000 ml @ 100 mls/hr IV . Q10H [facility] Rx#:[id number] Oral 600 Other: Voiding Method Toilet Toilet # Voids 2 - Labs CBC & Chem 7: 01/29/24 12:25 01/29/24 12:25 Labs: Abnormal Lab Results - Last 24 Hours (Table) 01/28/24 01/28/24 01/28/24 Range/Units 06:56 06:56 12:40 RBC 3.42 L (4.10-5.20) X 10*6/uL Hgb 9.8 L (12.0-15.0) g/dL Hct 32.5 L (37.2-46.3) % MCHC 30.2 L (32.0-37.0) g/dL ESR (0-20) mm/Hr Retic Count 0.4 L (0.5-2.0) % Haptoglobin (31.2-198.0) mg/dL Chloride 110 H (96-109) mmol/L Carbon Dioxide 20.8 L (21.6-31.8) mmol/L Anion Gap 13.20 H (4.00-12.00) mmol/L Calcium 8.2 L (8.7-10.3) mg/dL Iron (50-170) UG/DL % Saturation (12.00-45.00) Total Bilirubin <0.2 L (0.3-1.2) mg/dL Total Protein 5.6 L (6.2-8.2) g/dL Total Protein (PEP) (6.2-8.2) g/dL Albumin 3.2 L (3.8-4.9) g/dL Albumin/Globulin Ratio 1.33 L (1.60-3.17) Ratio 01/28/24 01/28/24 01/28/24 Range/Units 12:40 12:40 12:40 RBC (4.10-5.20) X 10*6/uL Hgb (12.0-15.0) g/dL Hct (37.2-46.3) % MCHC (32.0-37.0) g/dL ESR 65 H (0-20) mm/Hr Retic Count (0.5-2.0) % Haptoglobin 337.0 H (31.2-198.0) mg/dL Chloride (96-109) mmol/L Carbon Dioxide (21.6-31.8) mmol/L Anion Gap (4.00-12.00) mmol/L Calcium (8.7-10.3) mg/dL Iron 26 L (50-170) UG/DL % Saturation 8.05 L (12.00-45.00) Total Bilirubin (0.3-1.2) mg/dL Total Protein (6.2-8.2) g/dL Total Protein (PEP) (6.2-8.2) g/dL Albumin (3.8-4.9) g/dL Albumin/Globulin Ratio (1.60-3.17) Ratio 01/28/24 Range/Units 12:40 RBC (4.10-5.20) X 10*6/uL Hgb (12.0-15.0) g/dL Hct (37.2-46.3) % MCHC (32.0-37.0) g/dL ESR (0-20) mm/Hr Retic Count (0.5-2.0) % Haptoglobin (31.2-198.0) mg/dL Chloride (96-109) mmol/L Carbon Dioxide (21.6-31.8) mmol/L Anion Gap (4.00-12.00) mmol/L Calcium (8.7-10.3) mg/dL Iron (50-170) UG/DL % Saturation (12.00-45.00) Total Bilirubin (0.3-1.2) mg/dL Total Protein (6.2-8.2) g/dL Total Protein (PEP) 5.6 L (6.2-8.2) g/dL Albumin (3.8-4.9) g/dL Albumin/Globulin Ratio (1.60-3.17) Ratio Microbiology - Last 24 Hours (Table) 01/27/24 09:40 Blood Culture - Preliminary Blood 01/27/24 09:50 Blood Culture - Preliminary Blood
--- NOTE | 2024-01-29 18:06 | P.PN ---
Subjective Progress Note Date: 01/29/24 No acute events. In follow-up today patient is resting comfortably in bed. She reports improvement in her symptoms. Hemoglobin stable at 9.6. Platelets 228,000. Patient remains afebrile x 2 days. Repeat blood cultures negative thus far. Objective - Vital Signs Vital signs: Vital Signs Temp 98.1 F 01/29/24 12:47 Pulse 59 L 01/29/24 12:47 Resp 16 01/29/24 12:47 BP 120/69 01/29/24 12:47 Pulse Ox 100 01/29/24 12:47 FiO2 Intake & Output 01/28/24 01/29/24 01/29/24 18:59 06:59 18:59 Intake Total 1800 Balance 1800 Intake: Intake, IV Titration 1200 Amount Sodium Chloride 0.9% 1, 1200 000 ml @ 100 mls/hr IV . Q10H [facility] Rx#:[id number] Oral 600 Other: Voiding Method Toilet Toilet Toilet # Voids 2 - Constitutional General appearance: Present: average body habitus, no acute distress - EENT Eyes: Present: anicteric sclerae, EOMI ENT: Present: hearing grossly normal - Respiratory Details: breathing is even and unlabored - Cardiovascular Details: well perfused - Gastrointestinal General gastrointestinal: Present: soft. Absent: tenderness - Integumentary Integumentary: Absent: cyanotic - Neurologic Neurologic: Present: CNII-XII intact - Musculoskeletal Musculoskeletal: Present: strength equal bilaterally - Psychiatric Psychiatric: Present: A&O x's 3 - Labs CBC & Chem 7: 01/29/24 12:25 01/29/24 12:25 Labs: Abnormal Lab Results - Last 24 Hours (Table) 01/28/24 01/28/24 01/28/24 Range/Units 12:40 12:40 12:40 RBC (3.80-5.40) m/uL Hgb (11.4-16.0) gm/dL Hct (34.0-46.0) % ESR 65 H (0-20) mm/Hr Haptoglobin 337.0 H (31.2-198.0) mg/dL Chloride (98-107) mmol/L BUN (7-17) mg/dL Calcium (8.4-10.2) mg/dL Iron 26 L (50-170) UG/DL % Saturation 8.05 L (12.00-45.00) Total Protein (PEP) (6.2-8.2) g/dL 01/28/24 01/29/24 01/29/24 Range/Units 12:40 12:25 12:25 RBC 3.34 L (3.80-5.40) m/uL Hgb 9.6 L (11.4-16.0) gm/dL Hct 30.7 L (34.0-46.0) % ESR (0-20) mm/Hr Haptoglobin (31.2-198.0) mg/dL Chloride 110 H (98-107) mmol/L BUN 5 L (7-17) mg/dL Calcium 8.2 L (8.4-10.2) mg/dL Iron (50-170) UG/DL % Saturation (12.00-45.00) Total Protein (PEP) 5.6 L (6.2-8.2) g/dL Microbiology - Last 24 Hours (Table) 01/27/24 09:40 Blood Culture - Preliminary Blood 01/27/24 09:50 Blood Culture - Preliminary Blood - Imaging and Cardiology CT scan - abdomen: report reviewed CT scan - pelvis: report reviewed Assessment and Plan (1) Anemia Current Visit: Yes Status: Acute Priority: Medium Code(s): D64.9 - ANEMIA, UNSPECIFIED SNOMED Code(s): 825869280 (2) Bacteremia Current Visit: Yes Status: Acute Priority: High Code(s): R78.81 - BACTEREMIA SNOMED Code(s): 2652250 Plan: Splenomegaly -CT of the abdomen and pelvis has been ordered to more closely evaluate the spleen and the surrounding organs -Splenomegaly workup including autoimmune labs, inflammatory markers ordered -CT AP showed spleen is upper limits of normal with no splenomegaly noted and no other focal findings -K/L ratio WNL. Autoimmune markers normal. SPEP and immunofixation pending Anemia -Anemia and hemolysis workup ordered -Suspect related to recent , post bleeding with acute bacteremia -Iron studies showed iron saturation of 8.0%, with a ferritin 142. Vitamin B 12 288, folate 13.7. Will await MMA, if elevated will start B12 supplementation. At this time no parenteral iron will be ordered, recommended to continue daily prenatals -Hgb stable at 9.6 -Transfuse for hemoglobin less than 7 or if symptomatic Doctor attests: I performed a history and physical examination of this patient, developed impression and plan of care. Discussed with dictator. I agree with dictators note, documented as a scribe.
[2024-01-29 18:44] LABS: Albumin 2.54 g/dL (3.80-4.90); Gamma Globulin 0.63 g/dL (0.70-1.50)
[2024-01-30 02:36] VITALS: RESP 16
[2024-01-30 09:18] VITALS: BP 137/83; PULSE 68; TEMP 97.6
--- NOTE | 2024-01-30 10:12 | P.DS ---
Providers Date of admission: 01/27/24 10:40 Expected date of discharge: 01/30/24 Attending physician: Blanca Lopez MD Consults: 01/27/24 11:39 Consult Physician Routine Consulting Provider: Jay Torres Consult Reason/Comments: UTI with bacteremia Do you want consulting provider notified?: Yes 01/28/24 13:03 Consult Physician Routine Consulting Provider: Eamon Hummel Consult Reason/Comments: spleenomegally and anemia Do you want consulting provider notified?: Yes [facility] care [facility] Course: Discharge Diagnosis: Sepsis secondary to E. coli bacteremia Bilateral pyelonephritis Recent emergency Newly diagnosed splenomegaly Iron deficiency anemia B12 deficiency High anion gap metabolic acidosis Hospital Course: Patient is a pleasant 33-year-old female with no significant past medical history. Recently underwent section and delivery of her second child on 01/01/2024 resulting in the of a healthy baby boy. Patient reports since her she has been doing well, but states she developed subjective fevers, chills, urinary frequency and dysuria and presented to the emergency department on 01/25/2024 where she was diagnosed with a UTI and discharged home on Keflex. On 01/27/2024 patient received notification that her blood cultures were positive and that she needed to return to the hospital for evaluation and admission for IV antibiotics. Upon arrival to our facility patient underwent evaluation in the emergency department. Vital signs upon arrival show blood pressure 124/80, heart rate 110, respiratory rate 18, temp 99.3 F, and SpO2 of 98% on room air. Shortly after arrival patient spiked an elevated temp of 102.5 F. Labs were completed and reviewed. CBC showing normocytic anemia with hemoglobin of 9.8. Coagulation profile showing elevated PTT of 30.5. And BMP showing hyperchloremia with chloride of 113 and otherwise normal findings. Liver profile showing elevated AST of 42. Blood cultures obtained on 01/26/2024 from her ED visit were positive for E. coli. Patient started on IV antibiotics with Rocephin and admitted under our services with consultation to infectious disease for evaluation. CT abdomen pelvis showed findings consistent with bilateral uncomplicated pyelonephritis. Splenic volume is upper limits of normal. Laboratory workup consistent with iron deficiency anemia as well as B12 deficiency. Hematology was also consulted. Patient being discharged on oral ciprofloxacin. She is not breast-feeding. Also being discharged on ferrous sulfate and B12 supplements. Patient seen and examined at bedside. Vital signs reviewed and stable. General: Nontoxic, no distress, appears at stated age Derm: Warm, dry Head: Atraumatic, normocephalic, symmetric Eyes: EOMI, no lid lag, anicteric sclera Mouth: No lip lesion, mucus membranes moist Cardiovascular: S1S2 reg, no murmur Lungs: CTA bilateral, no rhonchi, no rales, no accessory muscle use Abdominal: Soft, nontender to palpation, no guarding, no appreciable organomegaly Ext: No gross muscle atrophy, no edema, no contractures Neuro: CN II-XI grossly intact, no focal neuro deficits Psych: Alert, oriented, appropriate affect A total of 33 minutes of time were spent preparing this complex discharge summary. Patient was discharged on 01/30/2024 at 942. Patient Condition at Discharge: Stable Plan - Discharge Summary Discharge Rx Participant: No New Discharge Prescriptions: New Ciprofloxacin HCl [Cipro] 500 mg PO Q12HR 10 Days #20 tab Ascorbic Acid [Vitamin C] 250 mg PO DAILY #60 tablet Ferrous Sulfate [Feosol] 325 mg PO DAILY #60 tab Cyanocobalamin [Vitamin B-12] 1,000 mcg PO DAILY #60 tablet Continue Acetaminophen Tab [Tylenol] 1,000 mg PO Q6HR PRN PRN Reason: Pain Or Fever > 100.5 Ibuprofen [Motrin] 600 mg PO Q8HR PRN PRN Reason: Pain Or Fever > 100.5 Discontinued Cephalexin [Keflex] 500 mg PO DIRECTED Discharge Medication List Acetaminophen Tab [Tylenol] 1,000 mg PO Q6HR PRN 01/27/24 [History] Ibuprofen [Motrin] 600 mg PO Q8HR PRN 01/27/24 [History] Ascorbic Acid [Vitamin C] 250 mg PO DAILY #60 tablet 01/30/24 [Rx] Ciprofloxacin HCl [Cipro] 500 mg PO Q12HR 10 Days #20 tab 01/30/24 [Rx] Cyanocobalamin [Vitamin B-12] 1,000 mcg PO DAILY #60 tablet 01/30/24 [Rx] Ferrous Sulfate [Feosol] 325 mg PO DAILY #60 tab 01/30/24 [Rx] Follow up Appointment(s)/Referral(s): Whateley,Eliezer, DO [Primary Care Provider] - 1-2 days Jay Torres MD [STAFF PHYSICIAN] - 1 Week Patient Instructions/Handouts: Urinary Tract Infection in Women (DC), Iron Deficiency Anemia (GEN), Vitamin B12 Deficiency (GEN), Bacteremia (DC) Activity/Diet/Wound Care/Special Instructions: Please see your PCP and ID. Discharge Disposition: HOME SELF-CARE
--- NOTE | 2024-01-31 09:28 | P.PN ---
Subjective Progress Note Date: 01/28/24 Principal diagnosis: Reason for follow-up is UTI and bacteremia Patient is a 33-year-old female with a past medical history significant for pancreatitis as well as cholecystitis recently did have a C- section presenting to the hospital initially for fever rigors and chills and did have some urinary symptoms, patient was discharged on oral Keflex subsequently called back to the hospital because the blood culture positive with E. coli. On today's evaluation that is 01/28/2024, patient did have resolution of her fever and has been afebrile, patient is breathing comfortably and is currently on room air, patient denies having any significant cough no chest pain shortness of breath, patient denies nausea vomiting or diarrhea and no abdominal pain Patient did have a white count of 4.95 creatinine is 0 point 8 repeat blood cultures pending Objective - Vital Signs Vital signs: Vital Signs Temp 98.3 F 01/28/24 07:17 Pulse 76 01/28/24 07:17 Resp 16 01/28/24 07:17 BP 143/71 01/28/24 07:17 Pulse Ox 100 01/28/24 07:17 FiO2 Intake & Output 01/27/24 01/28/24 01/28/24 18:59 06:59 18:59 Intake Total 600 Balance 600 Weight 65.771 kg 65.771 kg Intake: Oral 600 Other: Voiding Method Toilet # Voids 2 - Exam GENERAL DESCRIPTION: Middle-aged female lying in bed in no distress RESPIRATORY SYSTEM: Unlabored breathing , decreased breath sounds at bases HEART: S1 S2 regular rate and rhythm , ABDOMEN: Soft , no tenderness EXTREMITIES: No edema feet Exam completed with help of WINDERMAN - Labs CBC & Chem 7: 01/29/24 12:25 01/29/24 12:25 Labs: Abnormal Lab Results - Last 24 Hours (Table) 01/27/24 01/27/24 01/27/24 Range/Units 09:50 10:57 15:13 RBC 3.35 L (3.80-5.40) m/uL Hgb 9.8 L (11.4-16.0) gm/dL Hct 31.1 L (34.0-46.0) % Lymphocytes # 0.9 L (1.0-4.8) k/uL APTT 30.5 H (22.0-30.0) sec Chloride 113 H (98-107) mmol/L AST 42 H (14-36) U/L Albumin 3.4 L (3.5-5.0) g/dL Assessment and Plan (1) Bacteremia Status: Acute Priority: High Code(s): R78.81 - BACTEREMIA SNOMED Code(s): 7788158 (2) UTI (urinary tract infection) Status: Acute Code(s): N39.0 - URINARY TRACT INFECTION, SITE NOT SPECIFIED SNOMED Code(s): 58183947 Plan: This is a telehealth visit 1patient with E. coli bacteremia source is likely UTI in this patient who did have significant urinary symptoms failing outpatient oral antibiotic therapy. 2check ultrasound kidney bladder with no evidence of any obstructive uropathy or stones, CT abdominal pelvis with bilateral uncomplicated pyelonephritis 3patient to continue with Rocephin 2 g daily while waiting for the culture to finalize. Dictation was produced using [employer] dictation software. please excuse any grammatical, word or spelling errors. Time with Patient: Less than 30
--- NOTE | 2024-01-31 09:29 | P.PN ---
Subjective Progress Note Date: 01/29/24 Principal diagnosis: Reason for follow-up is UTI and bacteremia Patient is a 33-year-old female with a past medical history significant for pancreatitis as well as cholecystitis recently did have a C- section presenting to the hospital initially for fever rigors and chills and did have some urinary symptoms, patient was discharged on oral Keflex subsequently called back to the hospital because the blood culture positive with E. coli. On today's evaluation that is 01/29/2024, Patient is afebrile this morning and denies any chills, patient mention breathing comfortably and is currently on room air, patient denies any chest pain occasional cough patient denies any abdominal pain no diarrhea no nausea no vomiting. Patient white count is 4.4 creatinine 0.61 Objective - Vital Signs Vital signs: Vital Signs Temp 98 F 01/29/24 19:52 Pulse 65 01/29/24 19:52 Resp 17 01/29/24 19:52 BP 120/69 01/29/24 19:52 Pulse Ox 100 01/29/24 19:52 FiO2 Intake & Output 01/29/24 01/29/24 01/30/24 06:59 18:59 06:59 Intake Total 1800 1620 Balance 1800 1620 Intake: Intake, IV Titration 1200 Amount Sodium Chloride 0.9% 1, 1200 000 ml @ 100 mls/hr IV . Q10H [facility] Rx#:[id number] Oral 600 1620 Other: Voiding Method Toilet Toilet # Voids 2 - Exam GENERAL DESCRIPTION: Middle-aged female lying in bed in no distress RESPIRATORY SYSTEM: Unlabored breathing , decreased breath sounds at bases HEART: S1 S2 regular rate and rhythm , ABDOMEN: Soft , no tenderness EXTREMITIES: No edema feet Exam completed with help of SALES AND CATERING COORDINATOR - Labs CBC & Chem 7: 01/29/24 12:25 01/29/24 12:25 Labs: Abnormal Lab Results - Last 24 Hours (Table) 01/28/24 01/29/24 01/29/24 Range/Units 12:40 12:25 12:25 RBC 3.34 L (3.80-5.40) m/uL Hgb 9.6 L (11.4-16.0) gm/dL Hct 30.7 L (34.0-46.0) % Chloride 110 H (98-107) mmol/L BUN 5 L (7-17) mg/dL Calcium 8.2 L (8.4-10.2) mg/dL Albumin (PEP) 2.54 L (3.80-4.90) g/dL Ptvob-[id number]-Hxkirodih 0.67 H (0.10-0.40) g/dL Gamma Globulins 0.63 L (0.70-1.50) g/dL Microbiology - Last 24 Hours (Table) 01/27/24 09:40 Blood Culture - Preliminary Blood 01/27/24 09:50 Blood Culture - Preliminary Blood Assessment and Plan (1) Bacteremia Status: Acute Priority: High Code(s): R78.81 - BACTEREMIA SNOMED Code(s): 6911671 (2) UTI (urinary tract infection) Status: Acute Code(s): N39.0 - URINARY TRACT INFECTION, SITE NOT SPECIFIED SNOMED Code(s): 15632926 Plan: This is a telehealth visit 1patient with E. coli bacteremia source is likely UTI in this patient who did have significant urinary symptoms failing outpatient oral antibiotic therapy. 2 ultrasound kidney bladder with no evidence of any obstructive uropathy or stones, CT abdominal pelvis with bilateral uncomplicated pyelonephritis 3patient to continue with Rocephin 2 g daily while inpatient however the patient able to finish therapy with oral Cipro discussed with the nursing staff Dictation was produced using [employer] dictation software. please excuse any grammatical, word or spelling errors. Time with Patient: Less than 30
--- NOTE | 2024-01-31 09:30 | P.PN ---
Subjective Progress Note Date: 01/30/24 Patient is a 33-year-old female with a past medical history significant for pancreatitis as well as cholecystitis recently did have a C- section presenting to the hospital initially for fever rigors and chills and did have some urinary symptoms, patient was discharged on oral Keflex subsequently called back to the hospital because the blood culture positive with E. coli. On today's evaluation that is 01/30/2024,the patient denies any fever or any chills, patient is breathing comfortably on room air, the patient denies chest pain shortness of breath and no significant cough, patient denies abdominal pain, no nausea vomiting or diarrhea. No new labs has been obtained today initial culture with an E. coli that is a sensitive pathogen repeat blood culture negative Objective - Vital Signs Vital signs: Vital Signs Temp 97.6 F 01/30/24 07:25 Pulse 68 01/30/24 07:25 Resp 16 01/30/24 07:25 BP 137/83 01/30/24 07:25 Pulse Ox 98 01/30/24 07:25 FiO2 Intake & Output 01/29/24 01/30/24 01/30/24 18:59 06:59 18:59 Intake Total 1620 1500 Balance 1620 1500 Intake: Oral 1620 1500 Other: Voiding Method Toilet Toilet # Voids 3 - Exam GENERAL DESCRIPTION: Middle-aged female lying in bed in no distress RESPIRATORY SYSTEM: Unlabored breathing , decreased breath sounds at bases HEART: S1 S2 regular rate and rhythm , ABDOMEN: Soft , no tenderness EXTREMITIES: No edema feet - Labs CBC & Chem 7: 01/29/24 12:25 01/29/24 12:25 Labs: Abnormal Lab Results - Last 24 Hours (Table) 01/28/24 01/29/24 01/29/24 Range/Units 12:40 12:25 12:25 RBC 3.34 L (3.80-5.40) m/uL Hgb 9.6 L (11.4-16.0) gm/dL Hct 30.7 L (34.0-46.0) % Chloride 110 H (98-107) mmol/L BUN 5 L (7-17) mg/dL Calcium 8.2 L (8.4-10.2) mg/dL Albumin (PEP) 2.54 L (3.80-4.90) g/dL Lzcax-2-Vvhvifvti 0.67 H (0.10-0.40) g/dL Gamma Globulins 0.63 L (0.70-1.50) g/dL Microbiology - Last 24 Hours (Table) 01/27/24 09:40 Blood Culture - Preliminary Blood 01/27/24 09:50 Blood Culture - Preliminary Blood Assessment and Plan (1) Bacteremia Status: Acute Priority: High Code(s): R78.81 - BACTEREMIA SNOMED Code(s): 1221491 (2) UTI (urinary tract infection) Status: Acute Code(s): N39.0 - URINARY TRACT INFECTION, SITE NOT SPECIFIED SNOMED Code(s): 16561504 Plan: 1patient with E. coli bacteremia source is likely UTI in this patient who did have significant urinary symptoms failing outpatient oral antibiotic therapy. 2 ultrasound kidney bladder with no evidence of any obstructive uropathy or stones, CT abdominal pelvis with bilateral uncomplicated pyelonephritis 3patient has shown clinical improvement with Rocephin 2 g daily , repeat blood culture has been negative, the patient to finish therapy with oral Cipro x 10 days on discharge and close outpatient follow-up Dictation was produced using [employer] dictation software. please excuse any grammatical, word or spelling errors. Time with Patient: Less than 30
== END 2024-01-30 13:06 | disposition home or self-care (01) | DRG 776 ==
LOC: EC 09:19 → 6NMEDSUR 10:40 → OBSVTOIN 10:40 → 6NMEDSUR 14:17 → 5NMEDONC 17:27
PROVIDERS: ADMIT Internal Medicine; ATTEND Internal Medicine
DX: O86.21 Infection of kidney following delivery (principal); O85 Puerperal sepsis; T83.511A Infection and inflammatory reaction due to indwelling urethral catheter, initial encounter; N12 Tubulo-interstitial nephritis, not specified as acute or chronic; E87.20 Acidosis, unspecified; O90.81 Anemia of the puerperium; Y84.6 Urinary catheterization as the cause of abnormal reaction of the patient, or of later complication, without mention of misadventure at the time of the procedure; B96.20 Unspecified Escherichia coli [E. coli] as the cause of diseases classified elsewhere; D50.9 Iron deficiency anemia, unspecified; O99.285 Endocrine, nutritional and metabolic diseases complicating the puerperium; E87.8 Other disorders of electrolyte and fluid balance, not elsewhere classified; E53.8 Deficiency of other specified B group vitamins; R16.1 Splenomegaly, not elsewhere classified; Z90.49 Acquired absence of other specified parts of digestive tract
CPT/HCPCS: 36415; 74177; 76770; 80048; 80053; 82607; 82728; 82746; 83010; 83540; 83550; 83605; 83615; 83883; 83921; 84165; 85025; 85027; 85045; 85610; 85652; 85730; 86038; 86334; 86431; 87040; 96365; 99285

== ENCOUNTER → 2024-02-17 | Outpatient (CLI) | payer MEDICAID ==
[2024-02-17 10:38] LABS: Ionized Calcium 5.1 mg/dL (4.5-5.3)
[2024-02-17 10:56] LABS: Basophils % (A) 1 %; Eosinophils # (A) 0.1 k/uL (0-0.7); Eosinophils % (A) 2 %; HCT 41.3 % (34.0-46.0); Lymphocytes # (A) 1.6 k/uL (1.0-4.8); Lymphocytes % (A) 40 %; MCH 29.5 pg (25.0-35.0); MCV 95.2 fL (80.0-100.0); Mean Platelet Volume 7.7; Monocytes # (A) 0.3 k/uL (0-1.0); Monocytes % (A) 6 %; Neutrophils # (A) 1.9 k/uL (1.3-7.7); Neutrophils % (A) 48 %; Platelet Count 193 k/uL (150-450); RBC 4.35 m/uL (3.80-5.40); RDW 15.4 % (11.5-15.5)
[2024-02-17 11:04] LABS: HGB 12.8 gm/dL (11.4-16.0)
[2024-02-17 11:21] LABS: ALT 28 U/L (4-34); AST 30 U/L (14-36); African American GFR (CKD) >90 (>60 ml/min/1.73 sqM); Albumin 4.5 g/dL (3.5-5.0); Albumin/Globulin Ratio 1.6; Alkaline Phosphatase 107 U/L (38-126); Anion Gap 7 mmol/L; Blood Urea Nitrogen 13 mg/dL (7-17); Calcium 9.7 mg/dL (8.4-10.2); Carbon Dioxide 28 mmol/L (22-30); Chloride 107 mmol/L (98-107); Globulin 2.9 g/dL; Glucose 85 mg/dL (74-99); Non-African American GFR(CKD) >90 (>60 ml/min/1.73 sqM); Potassium 4.4 mmol/L (3.5-5.1); Sodium 142 mmol/L (137-145); Total Bilirubin 0.5 mg/dL (0.2-1.3); Total Protein 7.4 g/dL (6.3-8.2)
[2024-02-17 17:17] LABS: % Iron Saturation 8.72 (12.00-45.00); Ferritin 45.9 ng/mL (10.0-291.0); Iron 43 UG/DL (50-170); Total Iron Binding Capacity 493 UG/DL (228-460)
== END | disposition home or self-care (01) ==
LOC: LABWHC1 09:57
PROVIDERS: ATTEND Internal Medicine
DX: D50.9 Iron deficiency anemia, unspecified (principal); M54.9 Dorsalgia, unspecified
CPT/HCPCS: 36415; 80053; 82330; 82607; 82728; 82746; 83540; 83550; 84443; 85025

== ENCOUNTER 2024-06-14 10:04 | Emergency (ER) | payer MEDICAID ==
--- NOTE | 2024-06-14 10:59 | ED ---
Female Urogenital HPI - General Chief complaint: Urogenital Stated complaint: abd pain Time Seen by Provider: 06/14/24 10:24 Source: patient, RN notes reviewed Mode of arrival: ambulatory - History of Present Illness Initial comments: 33-year-old female presenting to the ER with chief complaint of bilateral flank pain x 1 week with associated hematuria and dysuria. Patient describes a constant, throbbing pain in bilateral flanks that is worse with movement and food. Denies trauma or injury. Admits subjective fevers at home. Denies nausea or vomiting. Patient does have a history of kidney infections with sepsis several months ago after Antoine catheterization at time of the emergency . Patient has been taking Macrobid for 3 days for UTI. - Related Data Home Medications Medication Instructions Recorded Confirmed Acetaminophen Tab [Tylenol] 1,000 mg PO Q6HR PRN 01/27/24 01/27/24 Ibuprofen [Motrin] 600 mg PO Q8HR PRN 01/27/24 01/27/24 Previous Rx's Medication Instructions Recorded Ascorbic Acid [Vitamin C] 250 mg PO DAILY #60 tablet 01/30/24 Ciprofloxacin HCl [Cipro] 500 mg PO Q12HR 10 Days #20 tab 01/30/24 Cyanocobalamin [Vitamin B-12] 1,000 mcg PO DAILY #60 tablet 01/30/24 Ferrous Sulfate [Feosol] 325 mg PO DAILY #60 tab 01/30/24 Ketorolac [Toradol] 10 mg PO Q8HR #15 tab 06/14/24 Allergies Allergy/AdvReac Type Severity Reaction Status Date / Time No Known Allergies Allergy Verified 06/14/24 10:20 Review of Systems ROS Statement: Those systems with pertinent positive or pertinent negative responses have been documented in the HPI. ROS Other: All systems not noted in ROS Statement are negative. Past Medical History Past Medical History: Liver Disease Additional Past Medical History / Comment(s): cholecystitis, pancreatitis, urosepsis january 2024 History of Any Multi-Drug Resistant Organisms: None Reported Past Surgical History: Section, Cholecystectomy Additional Past Surgical History / Comment(s): princess 04/2019, ERCP 06/2019 Past Anesthesia/Blood Transfusion Reactions: No Reported Reaction Additional Past Anesthesia/Blood Transfusion Reaction / Comment(s): no hx blood transfusion Past Psychological History: No Psychological Hx Reported Smoking Status: Never smoker Past Alcohol Use History: None Reported Past Drug Use History: None Reported - Past Family History Mother Family Medical History: No Reported History Additional Family Medical History / Comment(s): hyperemesis Father Family Medical History: No Reported History General Exam General appearance: alert, in no apparent distress Head exam: Present: atraumatic, normocephalic, normal inspection Eye exam: Present: normal appearance, PERRL, EOMI. Absent: scleral icterus, conjunctival injection, periorbital swelling ENT exam: Present: normal exam, mucous membranes moist Respiratory exam: Present: normal lung sounds bilaterally. Absent: respiratory distress, wheezes, rales, rhonchi, stridor Cardiovascular Exam: Present: regular rate, normal rhythm, normal heart sounds. Absent: systolic murmur, diastolic murmur, rubs, gallop, clicks GI/Abdominal exam: Present: soft, normal bowel sounds. Absent: distended, tenderness, guarding, rebound, rigid Back exam: Present: normal inspection, full ROM. Absent: CVA tenderness (R), CVA tenderness (L), rash noted Neurological exam: Present: alert, oriented X3 Psychiatric exam: Present: normal affect, normal mood Skin exam: Present: warm, dry, intact, normal color. Absent: rash Course Vital Signs 06/14/24 06/14/24 06/14/24 10:15 11:17 13:41 Temperature 97.8 F 98 F 98 F Pulse Rate 75 67 78 Respiratory 20 18 18 Rate Blood Pressure 136/82 126/65 126/65 O2 Sat by Pulse 100 100 98 Oximetry Medical Decision Making - Medical Decision Making Was pt. sent in by a medical professional or institution ([facility], [facility], urgent care, hospital, or group home...) When possible be specific @ -No Did you speak to anyone other than the patient for history (EMS, parent, family, police, friend...)? What history was obtained from this source @ -No Did you review nursing and triage notes (agree or disagree)? Why? @ -I reviewed and agree with nursing and triage notes Were old charts reviewed (outside hosp., previous admission, EMS record, old EKG, old radiological studies, urgent care reports/EKG's, group home records)? Report findings @ -No old charts were reviewed Differential Diagnosis (chest pain, altered mental status, abdominal pain women, abdominal pain men, vaginal bleeding, weakness, fever, dyspnea, syncope, headache, dizziness, GI bleed, back pain, seizure, CVA, palpatations, mental health, musculoskeletal)? @ -Differential Abdominal Pain Women: Appendicitis, Cholecystitis, diverticulosis, ischemic bowel, pancreatitis, hepatitis, UTI, gastroenteritis, AAA, incarcerated hernia, bowel obstruction, constipation, inflammatory bowel, hepatitis, peptic ulcer disease, splenic infarction, perforated viscus, vulvitis, ovarian torsion, PID, kidney stone, placenta abruption, this is not meant to be an all-inclusive list EKG interpreted by me (3pts min.). @ -None X-rays interpreted by me (1pt min.). @ -None done CT interpreted by me (1pt min.). @ -CT abdomen pelvis reveals no evidence for acute abdominal or pelvic process, no obstructive uropathy, tiny punctate nonobstructive right renal calculi, hepatomegaly, developing of pneumobilia postcholecystectomy U/S interpreted by me (1pt. min.). @ -None done What testing was considered but not performed or refused? (CT, X-rays, U/S, labs)? Why? @ -None What meds were considered but not given or refused? Why? @ -None Did you discuss the management of the patient with other professionals (professionals i.e. , PA, [facility], lab, RT, psych nurse, social science professor, spoon maker, teacher, campus security officer, therapeutic case manager)? Give summary @ -No Was smoking cessation discussed for >3mins.? @ -No Was critical care preformed (if so, how long)? @ -No Were there social determinants of health that impacted care today? How? (Homelessness, low income, unemployed, alcoholism, drug addiction, transportation, low edu. Level, literacy, decrease access to med. care, longterm, r ehab)? @ -No Was there de-escalation of care discussed even if they declined (Discuss DNR or withdrawal of care, Hospice)? DNR status @ -No What co-morbidities impacted this encounter? (DM, HTN, Smoking, COPD, CAD, Cancer, CVA, ARF, Chemo, Hep., AIDS, mental health diagnosis, sleep apnea, morbid obesity)? @ -None Was patient admitted / discharged? Hospital course, mention meds given and route, prescriptions, significant lab abnormalities, going to OR and other pertinent info. @ -Discharge. This is a 33-year-old female presenting with low back pain x 1 week with hematuria and dysuria. Patient has been taking Macrobid for 3 days for UTI. Vital signs are within acceptable limits. Abdomen is soft and nontender, no CVA tenderness. Patient was provided with IV fluids, antiemetics, and analgesics. Laboratory studies including CBC, CMP, lactic acid unremarkable. White blood cell count stable at 6.5. Urinalysis revealed large amount of blood, negative for bacteria. CT abdomen pelvis revealed no acute process, no obstructive uropathy. Negative results discussed with patient. Advised to continue Macrobid for UTI and follow-up closely with PCP. Strict return precautions discussed and patient is agreeable to plan. Supportive care discussed, patient discharged with analgesics. Case was discussed with my ED attending Dr. Brothers. Patient discharged in stable condition. Undiagnosed new problem with uncertain prognosis? @ -No Drug Therapy requiring intensive monitoring for toxicity (Heparin, Nitro, Insulin, Cardizem)? @ -No Were any procedures done? @ -No Diagnosis/symptom? @ -Urinary tract infection Acute, or Chronic, or Acute on Chronic? @ -Acute Uncomplicated (without systemic symptoms) or Complicated (systemic symptoms)? @ -Uncomplicated Side effects of treatment? @ -No Exacerbation, Progression, or Severe Exacerbation? @ -No Poses a threat to life or bodily function? How? (Chest pain, [place], [place], pneumonia, PE, COPD, DKA, ARF, appy, cholecystitis, CVA, Diverticulitis, Homicidal, Suicidal, threat to staff... and all critical care pts) @ -No - Lab Data Result diagrams: 06/14/24 11:08 06/14/24 11:08 Lab Results 06/14/24 06/14/24 06/14/24 Range/Units 11:08 11:08 11:08 WBC 6.5 (3.8-10.6) k/uL RBC 4.60 (3.80-5.40) m/uL Hgb 14.3 (11.4-16.0) gm/dL Hct 43.4 (34.0-46.0) % MCV 94.3 (80.0-100.0) fL MCH 31.2 (25.0-35.0) pg MCHC 33.0 (31.0-37.0) g/dL RDW 12.8 (11.5-15.5) % Plt Count 211 (150-450) k/uL MPV 7.2 Neutrophils % 58 % Lymphocytes % 33 % Monocytes % 4 % Eosinophils % 3 % Basophils % 1 % Neutrophils # 3.8 (1.3-7.7) k/uL Lymphocytes # 2.1 (1.0-4.8) k/uL Monocytes # 0.3 (0-1.0) k/uL Eosinophils # 0.2 (0-0.7) k/uL Basophils # 0.0 (0-0.2) k/uL Sodium 142 (137-145) mmol/L Potassium 3.9 (3.5-5.1) mmol/L Chloride 108 H (98-107) mmol/L Carbon Dioxide 24 (22-30) mmol/L Anion Gap 10 mmol/L BUN 14 (7-17) mg/dL Creatinine 0.75 (0.52-1.04) mg/dL Est GFR (CKD-EPI)AfAm >90 (>60 ml/min/1.73 sqM) Est GFR (CKD-EPI)NonAf >90 (>60 ml/min/1.73 sqM) Glucose 80 (74-99) mg/dL Plasma Lactic Acid [place] (0.7-2.0) mmol/L Calcium 9.2 (8.4-10.2) mg/dL Total Bilirubin 0.5 (0.2-1.3) mg/dL AST 21 (14-36) U/L ALT 15 (4-34) U/L Alkaline Phosphatase 93 (38-126) U/L Total Protein 7.5 (6.3-8.2) g/dL Albumin 4.5 (3.5-5.0) g/dL Lipase 92 (23-300) U/L Urine Color Urine Appearance (Clear) Urine pH (5.0-8.0) Ur Specific [place] (1.001-1.035) Urine Protein (Negative) Urine Glucose (UA) (Negative) Urine Ketones (Negative) Urine Blood (Negative) Urine Nitrite (Negative) Urine Bilirubin (Negative) Urine Urobilinogen (<2.0) mg/dL Ur Leukocyte Esterase (Negative) Urine RBC (0-5) /hpf Urine WBC (0-5) /hpf Ur Squamous Epith Cells (0-4) /hpf Urine Mucus (None) /hpf Urine HCG, Qual Not Detected (Not Detectd) 06/14/24 06/14/24 Range/Units 11:08 11:08 WBC (3.8-10.6) k/uL RBC (3.80-5.40) m/uL Hgb (11.4-16.0) gm/dL Hct (34.0-46.0) % MCV (80.0-100.0) fL MCH (25.0-35.0) pg MCHC (31.0-37.0) g/dL RDW (11.5-15.5) % Plt Count (150-450) k/uL MPV Neutrophils % % Lymphocytes % % Monocytes % % Eosinophils % % Basophils % % Neutrophils # (1.3-7.7) k/uL Lymphocytes # (1.0-4.8) k/uL Monocytes # (0-1.0) k/uL Eosinophils # (0-0.7) k/uL Basophils # (0-0.2) k/uL Sodium (137-145) mmol/L Potassium (3.5-5.1) mmol/L Chloride (98-107) mmol/L Carbon Dioxide (22-30) mmol/L Anion Gap mmol/L BUN (7-17) mg/dL Creatinine (0.52-1.04) mg/dL Est GFR (CKD-EPI)AfAm (>60 ml/min/1.73 sqM) Est GFR (CKD-EPI)NonAf (>60 ml/min/1.73 sqM) Glucose (74-99) mg/dL Plasma Lactic Acid [place]ado 1.3 (0.7-2.0) mmol/L Calcium (8.4-10.2) mg/dL Total Bilirubin (0.2-1.3) mg/dL AST (14-36) U/L ALT (4-34) U/L Alkaline Phosphatase (38-126) U/L Total Protein (6.3-8.2) g/dL Albumin (3.5-5.0) g/dL Lipase (23-300) U/L Urine Color Light Yellow Urine Appearance Clear (Clear) Urine pH 6.5 (5.0-8.0) Ur Specific [place] 1.018 (1.001-1.035) Urine Protein Trace H (Negative) Urine Glucose (UA) Negative (Negative) Urine Ketones Negative (Negative) Urine Blood Large H (Negative) Urine Nitrite Negative (Negative) Urine Bilirubin Negative (Negative) Urine Urobilinogen <2.0 (<2.0) mg/dL Ur Leukocyte Esterase Negative (Negative) Urine RBC 177 H (0-5) /hpf Urine WBC 4 (0-5) /hpf Ur Squamous Epith Cells 1 (0-4) /hpf Urine Mucus Rare H (None) /hpf Urine HCG, Qual (Not Detectd) Disposition Clinical Impression: Urinary tract infection Disposition: HOME SELF-CARE Condition: Stable Instructions (If sedation given, give patient instructions): Urinary Tract Infection in Women (ED) Additional Instructions: Continue taking Macrobid as prescribed. Hydrate aggressively. Please return to the Emergency Department if symptoms worsen or any other concerns. Prescriptions: Ketorolac [Toradol] 10 mg PO Q8HR #15 tab Is patient prescribed a controlled substance at d/c from ED?: No Referrals: Eliezer Medley DO [Primary Care Provider] - 1-2 days Time of Disposition: 12:42
[2024-06-14] MEDS: KETOROLAC 15 MG/ML 1 ML VIAL IVP STA ×2 (11:14→13:37)
[2024-06-14] MEDS: SODIUM CHLORIDE 0.9% 1,000 ML IV STA (11:14)
[2024-06-14 11:18] VITALS: BP 126/65; RESP 18; TEMP 98
[2024-06-14 11:23] LABS: Basophils % (A) 1 %; Eosinophils # (A) 0.2 k/uL (0-0.7); Eosinophils % (A) 3 %; HCT 43.4 % (34.0-46.0); HGB 14.3 gm/dL (11.4-16.0); Lymphocytes # (A) 2.1 k/uL (1.0-4.8); Lymphocytes % (A) 33 %; MCH 31.2 pg (25.0-35.0); MCV 94.3 fL (80.0-100.0); Mean Platelet Volume 7.2; Monocytes # (A) 0.3 k/uL (0-1.0); Monocytes % (A) 4 %; Neutrophils # (A) 3.8 k/uL (1.3-7.7); Neutrophils % (A) 58 %; Platelet Count 211 k/uL (150-450); RDW 12.8 % (11.5-15.5); WBC 6.5 k/uL (3.8-10.6)
[2024-06-14 11:29] LABS: Appearance,Urine Clear (Clear); Bilirubin,Urine Negative (Negative); Blood,Urine Large (Negative); Color,Urine Light Yellow; Glucose,Urine (UA) Negative (Negative); Ketones,Urine Negative (Negative); Leukocyte Esterase,Urine Negative (Negative); Mucus,Urine Rare /hpf; Nitrite,Urine Negative (Negative); PH, Urine 6.5 (5.0-8.0); Protein,Urine Trace (Negative); RBC,Urine 177 /hpf (0-5); Specific Gravity,Urine 1.018 (1.001-1.035); Squamous Epithelial Cell,Urine 1 /hpf (0-4); Urobilinogen,Urine <2.0 mg/dL (<2.0); WBC,Urine 4 /hpf (0-5)
[2024-06-14 11:34] LABS: ALT 15 U/L (4-34); AST 21 U/L (14-36); African American GFR (CKD) >90 (>60 ml/min/1.73 sqM); Albumin 4.5 g/dL (3.5-5.0); Alkaline Phosphatase 93 U/L (38-126); Anion Gap 10 mmol/L; Blood Urea Nitrogen 14 mg/dL (7-17); Calcium 9.2 mg/dL (8.4-10.2); Carbon Dioxide 24 mmol/L (22-30); Chloride 108 mmol/L (98-107); Glucose 80 mg/dL (74-99); Lipase 92 U/L (23-300); Non-African American GFR(CKD) >90 (>60 ml/min/1.73 sqM); Potassium 3.9 mmol/L (3.5-5.1); Sodium 142 mmol/L (137-145); Total Bilirubin 0.5 mg/dL (0.2-1.3); Total Protein 7.5 g/dL (6.3-8.2)
--- NOTE | 2024-06-14 12:12 | CT ---
EXAMINATION TYPE: CT abdomen pelvis wo con CT DLP: 464 mGycm, Automated exposure control for dose reduction was used. DATE OF EXAM: 06/14/2024 11:53 AM COMPARISON: CT abdomen pelvis 01/28/2024 CLINICAL INDICATION:Female, 33 years old with history of flank pain; Flank pain with UTI TECHNIQUE: Standard CT of the abdomen and pelvis without IV or oral contrast. Lack of IV or oral co ntrast limits evaluation of solid and hollow organ viscera. Coronal and sagittal reformats were perfo rmed. FINDINGS: LOWER CHEST: Unremarkable ABDOMEN LIVER: Enlarged measuring 20.3 cm in CC dimension. GALLBLADDER AND BILE DUCTS: The gallbladder is surgically absent. No biliary ductal dilatation. Intra hepatic pneumobilia now demonstrated. PANCREAS: Unremarkable noncontrast appearance SPLEEN: Unremarkable noncontrast appearance ADRENAL GLANDS: Unremarkable noncontrast appearance. KIDNEYS AND URETERS: No evidence of hydronephrosis. Tiny 1 mm nonobstructive right lower pole renal c alculus. No definitive ureteral calculi.No perinephric fat stranding. PELVIS BLADDER: Incompletely distended but grossly unremarkable. No concerning fat stranding. REPRODUCTIVE: Unremarkable noncontrast appearance ABDOMEN & PELVIS STOMACH AND BOWEL: Stomach and duodenum are unremarkable. No focal bowel thickening or surrounding in flammatory changes. No evidence of bowel obstruction. PERITONEUM: No evidence of pneumoperitoneum or free fluid. VASCULATURE: No evidence of aortic aneurysm. MUSCULOSKELETAL: No acute osseous abnormalities LYMPH NODES: No gross evidence for lymphadenopathy. SOFT TISSUE/ABDOMINAL WALL: Tiny fat filled umbilical hernia. IMPRESSION: 1. No CT evidence for an acute abdominal/pelvic process within limitations of a noncontrast exam. No evidence for obstructive uropathy. Tiny punctate nonobstructive right renal calculus. 2. Hepatomegaly. 3. Development of pneumobilia post cholecystectomy. [facility], , 06/14/2024 12:10 PM
[2024-06-14 13:50] VITALS: PULSE 78
== END 2024-06-14 13:50 | disposition home or self-care (01) ==
LOC: EC 10:04
DX: N39.0 Urinary tract infection, site not specified (principal); N20.0 Calculus of kidney
CPT/HCPCS: 36415; 80053; 83605; 83690; 85025; 81001; 81025; 74176; 99284; 96374; 96376; 96361; J1885

== ENCOUNTER → 2024-12-22 | Outpatient (CLI) | payer MEDICAID ==
[2024-12-22 14:49] LABS: Basophils # (A) 0.05 X 10*3/uL (0.00-0.10); Basophils % (A) 0.9 %; Eosinophils # (A) 0.16 X 10*3/uL (0.04-0.35); Eosinophils % (A) 2.8 %; HCT 45.5 % (37.2-46.3); HGB 15.3 g/dL (12.0-15.0); Lymphocytes % (A) 38.1 %; MCH 31.4 pg (27.0-32.0); MCHC 33.6 g/dL (32.0-37.0); MCV 93.4 FL (80.0-97.0); Mean Platelet Volume 11.3 FL (9.5-12.2); Monocytes # (A) 0.32 X 10*3/uL (0.20-1.00); Monocytes % (A) 5.5 %; NRBC Per 100 WBC 0 X 10*3/uL (0.00-0.01); Neutrophils # (A) 3.02 X 10*3/uL (1.80-7.70); Neutrophils % (A) 52.4 %; Platelet Count 210 X 10*3/uL (140-440); RBC 4.87 X 10*6/uL (4.10-5.20); RDW 12.4 % (11.5-14.5); WBC 5.77 X 10*3/uL (4.50-10.00)
[2024-12-22 15:33] LABS: % Iron Saturation 22.51 (12.00-45.00); ALT 15 U/L (8-44); AST 19 U/L (13-35); Albumin 4.4 g/dL (3.8-4.9); Albumin/Globulin Ratio 1.47 Ratio (1.60-3.17); Alkaline Phosphatase 97 U/L (41-126); Blood Urea Nitrogen 11.6 mg/dL (9.0-27.0); Calcium 9.5 mg/dL (8.7-10.3); Carbon Dioxide 22.5 mmol/L (21.6-31.8); Chloride 104 mmol/L (96-109); Chol/HDL Ratio 4.12 Ratio; Ferritin 53.6 ng/mL (10.0-291.0); Glucose 84 mg/dL (70-110); Iron 131 UG/DL (50-170); LDL Cholesterol,Calculated 116.7 mg/dL (0.0-131.0); Potassium 4.3 mmol/L (3.5-5.5); Sodium 139 mmol/L (135-145); Total Bilirubin 0.3 mg/dL (0.3-1.2); Total Iron Binding Capacity 582 UG/DL (228-460); Total Protein 7.4 g/dL (6.2-8.2)
== END | disposition home or self-care (01) ==
LOC: LABWHC1 08:44
PROVIDERS: ATTEND Internal Medicine
DX: Z00.00 Encounter for general adult medical examination without abnormal findings (principal); D50.9 Iron deficiency anemia, unspecified
CPT/HCPCS: 36415; 80053; 80061; 82607; 82728; 82746; 83540; 83550; 84443; 85025